=== PATIENT | female | born 2000 | race Caucasian/White ===

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

== ENCOUNTER 2022-08-12 12:59 | Emergency (ER) | payer OTHER ==
--- OUTSIDE RECORDS SUMMARY | 2022-08-12 13:06 | XMS REPORT | Continuity of Care Document ---
:2000 Author Organization [facility] [place] [facility] t Address [address] [place] [address] Care Team Providers Name Role Phone PCP, PATIENT DOES NOT HAVE A Primary Care Physician Unavaila BO Correa Attending Clinician Unavailable RADIOLOGY Attending Clinician Unavailable Radiology Attending Clinician Unavailable Lab, [facility] Pob I Attending Clinician Unavailable EbAylin Connor Attending Clinician AYLIN FIGUEROA Attending Clinician Unavailable SOPHIA HEARD Attending Clinician Unavailable Nurse, [facility] Attending Clinician Unavailable Sophia Heard PA-C Attending Clinician Chemo Yates MD Attending Clinician Radha Monroy Attending Clinician Doctor Unassigned, [facility] Attending Clinician Unavailable CHEMO YATES Attending Clinician Unavailable 2, [facility] Attending Clinician Unavailable Pob, [facility] Main Attending Clinician Unavailable Ultrasound, Ang-[facility] Attending Clinician Unavailable Eladio Neal MD Attending Clinician Provider, [facility] Attending Clinician Unavailable RADHA ANDERSON Attending Clinician Unavailable CHEMO YATES Admitting Clinician Unavailable KAMILLE KERNS Admitting Clinician Unavailable Chemo Yates MD Admitting Clinician Payers Payer Name Policy Type Policy Number Effective Date Expiration Date Zach ESTES POS [id number] 2018 II 00:00:00 [place] [facility] [id number] 2019 HEALTH 00:00:00 [place]ID OF [place] [id number] 2019 00:00:00 Problems Condition Condition Condition Status Onset Resolution Last Treating Co mments Source Name Details Category Date Date Treatment Clinician Date 39 weeks 39 weeks Disease Active 2019-10 Unive rs gestation gestation 0-26 ity of of of 00:00: [place] 00 [facility] Anemia, Anemia, Disease Active 2020 Univers antepartum antepartum 0-26 it y of , third , third 00:00: [place] trimester trimester 00 [facility] Liveborn Liveborn Disease Active 2019-10 Unive rs , of , of 0-26 [place] y of [place] , , 00 [place] d[place] born in born in [facility] hospital by vaginal by vaginal delivery delivery Vacuum-ass Vacuum-ass Disease Active 2019-10 U nivers isted isted 0-26 ity of vaginal vaginal 00:00: [place] delivery delivery 00 [facility] Obesity Obesity Disease Active 2020- Univers (BMI (BMI 8-21 ity of 30-39.9) 30-39.9) 00:00: [address] Supervisio Supervisio Disease Active 2020-0 U nivers n of n of 3-16 ity of high-risk high-risk 00:[place] [facility] with with Branch history of history of in third in third trimester trimester Unsure of Unsure of Disease Active 2020 Uni vers LMP (last LMP (last 2-27 [place] of [place] menstrual 00:[place] period[place] as period) as 00 Me dical reason for reason for Br anch ultrasound ultrasound scan scan Disease Active 2020 Uni vers of unknown of unknown 2-27 it y of anatomic anatomic 00:00: [place] location location 00 [facility] Allergies, Adverse Reactions, Alerts Allergy Allergy Status Severity Reaction(s) Onset Inactive Treating Comm ents Source Name Type Date Date Clinician NO KNOWN Drug Active Univers ALLERGIE Class ity of S [facility] Social History Social Habit Start Date Stop Date Quantity Comments Source ASSERTION 2019-12-06 [facility] 00:00:00 [facility] Exposure to Yes University of SARS-CoV-2 [facility] (event) [place] Alcohol intake 2020-09-15 2020-09-15 Ex-drinker [facility] 00:00:00 00:00:00 (finding) [facility] Tobacco use and 2019-12-23 2019-12-23 Smokeless tobacco Un iversity of exposure 00:00:00 00:00:00 non-user [facility] Sex Assigned At 2000 2000 Universit y of 00:00:00 00:00:00 [facility] Smoking Status Start Date Stop Date Source Never smoked tobacco [facility] Medications Ordered Filled Start Stop Current Ordering Indication Dosage Frequency Signature Comments Components Source Medication Medication Date Date Medication? Clinician (SIG) Name Name medroxyPROG 2020- No [id number] 150mg Univers ESTERone 02-16 ity of (DEPO-PROVE 16:45: 15:20 [place] RA) syringe 00 :00 Medical 150 mg Branch medroxyPROG 2020- No [id number] 150mg 150 mg, Univers ESTERone 02-16 Intramuscu ity of (DEPO-PROVE 16:45: 15:20 lar, ONCE, [place] RA) syringe 00 :00 1 dose, Medic al 150 mg [place] Branch 02/16/21 at 1145, Routine medroxyPROG 2020- No 150mg Univ ers ESTERone 11-23 ity of (DEPO-PROVE 15:45: 14:47 [place] RA) 00 :00 Medical injection Branch 150 mg medroxyPROG 2020- No 150mg 150 mg, U nivers ESTERone 11-23 Intramuscu ity of (DEPO-PROVE 15:45: 14:47 lar, ONCE, [place] RA) 00 :00 1 dose, Medical injection Wed Branch 150 mg 11/23/20 at 0945, Routine medroxyPROG 2019-10- No 150mg 150 mg, U nivers ESTERone -28 Intramuscu ity of (DEPO-PROVE 15:15: 00:38 lar, ONCE, [place] RA) 00 :00 1 dose, Medical injection Tue Branch 150 mg 08/23/20 at 1015, Routine 2019-10 Yes [id number] 1{tbl} Take 1 Univers vitamin 0-27 [id number] tablet by ity o f w/FA tablet 00:00: mouth [place] 00 daily. Medical Branch docusate 2019-10 Yes [id number] 240mg Take 1 Univers calcium 240 0-27 [id number] capsule by ity of mg capsule 00:00: mouth once [place] 00 daily as Medical needed for Branch Constipati on. ferrous 2019-10 Yes [id number] 325mg Take 1 Univers sulfate 325 0-27 [id number] tablet by i ty of mg (65 mg 00:00: mouth 2 [place] iron) 00 (two) Medical tablet times Branch daily. ibuprofen 2019-10 Yes [id number] 600mg Take 1 Univers 600 mg 0-27 [id number] tablet by ity of tablet 00:00: mouth [place] 00 every 6 Medical (six) Branch hours as needed for Pain (scale 1-3) or Pain (scale 4-6) (Pain). Take with food or milk. 2019-10 Yes [id number] 1{tbl} Take 1 Univers vitamin 0-27 [id number] tablet by ity o f w/FA tablet 00:00: mouth [place] 00 daily. Medical Branch docusate 2019-10 Yes [id number] 240mg Take 1 Univers calcium 240 0-27 [id number] capsule by ity of mg capsule 00:00: mouth once [place] 00 daily as Medical needed for Branch Constipati on. ferrous 2019-10 Yes [id number] 325mg Take 1 Univers sulfate 325 0-27 [id number] tablet by i ty of mg (65 mg 00:00: mouth 2 [place] iron) 00 (two) Medical tablet times Branch daily. ibuprofen 2019-10 Yes [id number] 600mg Take 1 Univers 600 mg 0-27 [id number] tablet by ity of tablet 00:00: mouth [place] 00 every 6 Medical (six) Branch hours as needed for Pain (scale 1-3) or Pain (scale 4-6) (Pain). Take with food or milk. 2019-10 Yes [id number] 1{tbl} Take 1 Univers vitamin 0-27 [id number] tablet by ity o f w/FA tablet 00:00: mouth [place] 00 daily. Medical Branch docusate 2019-10 Yes [id number] 240mg Take 1 Univers calcium 240 0-27 [id number] capsule by ity of mg capsule 00:00: mouth once [place] 00 daily as Medical needed for Branch Constipati on. ferrous 2019-10 Yes [id number] 325mg Take 1 Univers sulfate 325 0-27 [id number] tablet by i ty of mg (65 mg 00:00: mouth 2 [place] iron) 00 (two) Medical tablet times Branch daily. ibuprofen 2019-10 Yes [id number] 600mg Take 1 Univers 600 mg 0-27 [id number] tablet by ity of tablet 00:00: mouth [place] 00 every 6 Medical (six) Branch hours as needed for Pain (scale 1-3) or Pain (scale 4-6) (Pain). Take with food or milk. 2019-10 Yes [id number] 1{tbl} Take 1 Univers vitamin 0-27 [id number] tablet by ity o f w/FA tablet 00:00: mouth [place] 00 daily. Medical Branch docusate 2019-10 Yes [id number] 240mg Take 1 Univers calcium 240 0-27 [id number] capsule by ity of mg capsule 00:00: mouth once [place] 00 daily as Medical needed for Branch Constipati on. ferrous 2019-10 Yes [id number] 325mg Take 1 Univers sulfate 325 0-27 [id number] tablet by i ty of mg (65 mg 00:00: mouth 2 [place] iron) 00 (two) Medical tablet times Branch daily. ibuprofen 2019-10 Yes [id number] 600mg Take 1 Univers 600 mg 0-27 [id number] tablet by ity of tablet 00:00: mouth [place] 00 every 6 Medical (six) Branch hours as needed for Pain (scale 1-3) or Pain (scale 4-6) (Pain). Take with food or milk. 2019-10 Yes [id number] 1{tbl} Take 1 Univers vitamin 0-27 [id number] tablet by ity o f w/FA tablet 00:00: mouth [place] 00 daily. Medical Branch docusate 2019-10 Yes [id number] 240mg Take 1 Univers calcium 240 0-27 [id number] capsule by ity of mg capsule 00:00: mouth once [place] 00 daily as Medical needed for Branch Constipati on. ferrous 2019-10 Yes [id number] 325mg Take 1 Univers sulfate 325 0-27 [id number] tablet by i ty of mg (65 mg 00:00: mouth 2 [place] iron) 00 (two) Medical tablet times Branch daily. ibuprofen 2019-10 Yes [id number] 600mg Take 1 Univers 600 mg 0-27 [id number] tablet by ity of tablet 00:00: mouth [place] 00 every 6 Medical (six) Branch hours as needed for Pain (scale 1-3) or Pain (scale 4-6) (Pain). Take with food or milk. 2019-10 Yes [id number] 1{tbl} Take 1 Univers vitamin 0-27 [id number] tablet by ity o f w/FA tablet 00:00: mouth [place] 00 daily. Medical Branch docusate 2019-10 Yes [id number] 240mg Take 1 Univers calcium 240 0-27 [id number] capsule by ity of mg capsule 00:00: mouth once [place] 00 daily as Medical needed for Branch Constipati on. ferrous 2019-10 Yes [id number] 325mg Take 1 Univers sulfate 325 0-27 [id number] tablet by i ty of mg (65 mg 00:00: mouth 2 [place] iron) 00 (two) Medical tablet times Branch daily. ibuprofen 2019-10 Yes [id number] 600mg Take 1 Univers 600 mg 0-27 [id number] tablet by ity of tablet 00:00: mouth [place] 00 every 6 Medical (six) Branch hours as needed for Pain (scale 1-3) or Pain (scale 4-6) (Pain). Take with food or milk. ferrous 2019-10 Yes [id number] 325mg Take 1 Univers sulfate 325 0-27 [id number] tablet by i ty of mg (65 mg 00:00: mouth 2 [place] iron) 00 (two) Medical tablet times Branch daily. ferrous 2019-10 Yes [id number] 325mg Take 1 Univers sulfate 325 0-27 [id number] tablet by i ty of mg (65 mg 00:00: mouth 2 [place] iron) 00 (two) Medical tablet times Branch daily. ferrous 2019-10 Yes [id number] 325mg Take 1 Univers sulfate 325 0-27 [id number] tablet by i ty of mg (65 mg 00:00: mouth 2 [place] iron) 00 (two) Medical tablet times Branch daily. 2019-10- No [id number] 1{tbl} Take 1 Univers vitamin 0-27 04-22 [id number] tablet by ity of w/FA tablet 00:00: 00:00 mouth [place] 00 :00 daily. Medical Branch docusate 2019-10- No [id number] 240mg Take 1 Univers calcium 240 02-16 [id number] capsule by ity of mg capsule 00:00: 00:00 mouth once [place] 00 :00 daily as Medical needed for Branch Constipati on. ibuprofen 2019-10- No [id number] 600mg Take 1 Univers 600 mg 02-16 [id number] tablet by ity o f tablet 00:00: 00:00 mouth [place] 00 :00 every 6 Medical (six) Branch hours as needed for Pain (scale 1-3) or Pain (scale 4-6) (Pain). Take with food or milk. rho(D) 2019-10 Yes 300ug 300 mcg, Univer s immune 0-26 Intramuscu ity of globulin 22:39: lar, ONCE, [place] as (RHOGAM) 37 For 1 Medical syringe 300 dose, Branch mcg Conditiona l, Routine ondansetron 2019-10 Yes 4mg 4 mg, Slow Univers (ZOFRAN 0-26 IV Push, ity of (PF)) 22:39: Q8HPRN, [place] injection 4 19 Starting Medi ron mg Mon Branch 08/22/20 at 1739, Until Discontinu ed, Routine, Nausea and Vomiting (N/V) simethicone 2019-10 Yes 160mg 160 mg, Un maxine (GAS RELIEF 0-26 Oral, ity of (SIMETHICON 22:39: PC+HSPRN, [place] E)) 19 Starting Medical chewable Mon Branch tablet 160 08/22/20 mg at 1739, Until Discontinu ed, Routine, Gas magnesium 2019-10 Yes 30mL 30 mL, Univer s hydroxide 0-26 Oral, ity of (MILK OF 22:39: QDAILYPRN, [place] as MAGNESIA) 19 Starting Medica l 400 mg/5 mL Mon Branch suspension 08/22/20 30 mL at 1739, Until Discontinu ed, Routine, Constipati on HYDROcodone 2019-10 Yes 1{tbl} 1 tablet, Univers -acetaminop 0-26 Oral, ity of hen (NORCO 22:39: Q6HPRN, [place] 5) 5-325 mg 18 Starting Medi ron tablet 1 Mon Branch tablet 08/22/20 at 1739, Until Discontinu ed, Routine, Pain (scale 7-10) ibuprofen 2019-10 Yes 600mg 600 mg, Univ ers (IBU) 0-26 Oral, ity of tablet 600 22:39: Q6HPRN, [place] mg 18 Starting Medical [facility] Branch 08/22/20 at 1739, Until Discontinu ed, Routine, Pain (scale 4-6) acetaminoph 2019-10 Yes 650mg 650 mg, Un maxine en 0-26 Oral, ity of (TYLENOL) 22:39: Q6HPRN, [place] tablet 650 18 Starting Medic al mg [facility] 08/22/20 at 1739, Until Discontinu ed, Routine, Pain (scale 1-3) diphenhydrA 2019-10 Yes 25mg 25 mg, Univ ers MINE 0-26 Oral, ity of (BENADRYL) 22:39: Q6HPRN, [place] tablet 25 18 Starting Medica l mg [facility] 08/22/20 at 1739, Until Discontinu ed, Routine, Sleep, Itching docusate 2019-10 Yes 240mg 240 mg, Unive rs calcium 0-26 Oral, ity of (SURFAK) 22:39: QDAILYPRN, [place] capsule 240 18 Starting Medi ron mg [facility] 08/22/20 at 1739, Until Discontinu ed, Routine, Constipati on benzocaine- 2019-10 Yes Topical, Un maxine menthol 0-26 PRN, ity of (DERMOPLAST 22:39: Starting [place] ) 20-0.5 % 18 Mon Medical topical 08/22/20 Branch spray at 1739, Until Discontinu ed, Routine, Perineum discomfort oxytocin 2019-10 2020- No at 999 Univer s (PITOCIN) 0-26 10-26 mL/hr, IV ity of 40 Units in 22:30: 20:43 Infusion, [place] lactated 00 :00 ONCE, 1 Medical ringers dose, [facility] 1,000 mL IV 08/22/20 infusion at 1730, Routine oxytocin 2019-10 2020- No 10U 10 Units, Uni vers (PITOCIN) 0-26 10-26 Intramuscu ity of injection 20:45: 20:39 lar, ONCE, [place] 10 Units 00 :00 1 dose, Medical [facility] 08/22/20 at 1545, Routine D5W-LR IV 2019-10 2020- No 1000mL at 125 Uni vers infusion 0-26 10-26 mL/hr, IV ity o f 1,000 mL 09:15: 22:39 Infusion, [place] as 00 :38 CONTINUOUS Medical , Starting Branch [facility] 08/22/20 at 0415, Until Sat08/22/20 at 1739, Routine FENTanyl PF 2019-10 2020- No 100ug 100 mcg, Univers (SUBLIMAZE 0-26 10-26 Slow IV ity o f (PF)) 09:07: 22:39 Push, [place] injection 32 :38 Q1HPRN, Medical 100 mcg Starting Branch [facility] 08/22/20 at 0407, Until Sat08/22/20 at 1739, Routine, contractio n pain without an epidural and SVE < 8 cm and Cat I strip LR 1000 mL 2019-10 2020- No 2mU/min at 6-120 Univers + oxytocin 0-26 10-26 mL/hr, IV ity of 20 units IV 09:07: 22:39 Infusion, [place] Solution 32 :38 TITRATE, Medical Starting Branch [facility] 08/22/20 at 0407, Until Sat08/22/20 at 173, FARHEEN lactated 2019-10 2020- No 500mL at 999 Unive rs ringers IV 0-26 10-26 mL/hr, 500 it y of infusion 09:07: 22:39 mL, IV [place] 500 mL 32 :38 Infusion, Medical PRN - SEE Branch INSTRUCTIO NS, Starting Sat08/22/20 at 0407, Until Sat08/22/20 at 1739, Routine famotidine 2020-0 Yes [id number] 20mg Take 1 Univers 20 mg 8-24 tablet by ity of tablet 00:00: mouth 2 [place] (two) Medical times [place] daily. famotidine 2020-0 Yes [id number] 20mg Take 1 Univers 20 mg 8-24 tablet by ity of tablet 00:00: mouth 2 [place] (two) Medical times [place] daily. famotidine 2020-0 Yes [id number] 20mg Take 1 Univers 20 mg 8-24 tablet by ity of tablet 00:00: mouth 2 [place] (two) Medical times [place] daily. famotidine 2020-0 Yes [id number] 20mg Take 1 Univers 20 mg 8-24 tablet by ity of tablet 00:00: mouth 2 [place] (two) Medical times Branch daily. famotidine 2020-0 Yes [id number] 20mg Take 1 Univers 20 mg 8-24 tablet by ity of tablet 00:00: mouth [place] (two) Medical times Branch daily. famotidine 2020-0 Yes [id number] 20mg Take 1 Univers 20 mg 8-24 tablet by ity of tablet 00:00: mouth (two) Medical times Branch daily. famotidine 2020-0 Yes [id number] 20mg Take 1 Univers 20 mg 8-24 tablet by ity of tablet 00:00: mouth [place] (two) Medical times Branch daily. famotidine 2020-0 Yes [id number] 20mg Take 1 Univers 20 mg 8-24 tablet by ity of tablet 00:00: mouth [place] (two) Medical times Branch daily. famotidine 2020-0 Yes [id number] 20mg Take 1 Univers 20 mg 8-24 tablet by ity of tablet 00:00: mouth [place] (two) Medical times Branch daily. famotidine 2020-0 Yes [id number] 20mg Take 1 Univers 20 mg 8-24 tablet by ity of tablet 00:00: mouth [place] (two) Medical times Branch daily. famotidine 2020-0 Yes [id number] 20mg Take 1 Univers 20 mg 8-24 tablet by ity of tablet 00:00: [facility] [place] (two) Medical times Branch daily. famotidine 2020-0 Yes [id number] 20mg Take 1 Univers 20 mg 8-24 tablet by ity of tablet 00:00: [facility] [place] (two) Medical times Branch daily. famotidine 2020-0 Yes [id number] 20mg Take 1 Univers 20 mg 8-24 tablet by ity of tablet 00:00: mouth [place] (two) Medical times Branch daily. famotidine 2020-0 Yes [id number] 20mg Take 1 Univers 20 mg 8-24 tablet by ity of tablet 00:00: mouth [place] (two) Medical times Branch daily. famotidine 2020-0 Yes [id number] 20mg Take 1 Univers 20 mg 8-24 tablet by ity of tablet 00:00: mouth [place] (two) Medical times Branch daily. famotidine 2020-0 Yes [id number] 20mg Take 1 Univers 20 mg 8-24 tablet by ity of tablet 00:00: mouth 2 [place] 00 (two) Medical times Branch daily. famotidine 2020-0 2020- No [id number] 20mg Take 1 Univers 20 mg 8-24 10-27 tablet by ity of tablet 00:00: 00:00 mouth 2 [place] 00 :00 (two) Medical times Branch daily. proMETHazin 2020-0 Yes [id number] 12.5mg Take 1 Univers e 12.5 mg 8-07 tablet by ity o f tablet 00:00: mouth [place] 00 every 4 Medical (four) Branch hours as needed for Nausea and Vomiting (N/V). proMETHazin 2020-0 Yes [id number] 12.5mg Take 1 Univers e 12.5 mg 8-07 tablet by ity o f tablet 00:00: mouth [place] 00 every 4 Medical (four) Branch hours as needed for Nausea and Vomiting (N/V). proMETHazin 2020-0 Yes [id number] 12.5mg Take 1 Univers e 12.5 mg 8-07 tablet by ity o f tablet 00:00: mouth [place] 00 every 4 Medical (four) Branch hours as needed for Nausea and Vomiting (N/V). proMETHazin 2020-0 Yes [id number] 12.5mg Take 1 Univers e 12.5 mg 8-07 tablet by ity o f tablet 00:00: mouth [place] 00 every 4 Medical (four) Branch hours as needed for Nausea and Vomiting (N/V). proMETHazin 2020-0 Yes [id number] 12.5mg Take 1 Univers e 12.5 mg 8-07 tablet by ity o f tablet 00:00: mouth [place] 00 every 4 Medical (four) Branch hours as needed for Nausea and Vomiting (N/V). proMETHazin 2020-0 Yes [id number] 12.5mg Take 1 Univers e 12.5 mg 8-07 tablet by ity o f tablet 00:00: mouth [place] 00 every 4 Medical (four) Branch hours as needed for Nausea and Vomiting (N/V). proMETHazin 2020-0 Yes [id number] 12.5mg Take 1 Univers e 12.5 mg 8-07 tablet by ity o f tablet 00:00: mouth [place] 00 every 4 Medical (four) Branch hours as needed for Nausea and Vomiting (N/V). proMETHazin 2020-0 Yes [id number] 12.5mg Take 1 Univers e 12.5 mg 8-07 tablet by ity o f tablet 00:00: mouth [place] 00 every 4 Medical (four) Branch hours as needed for Nausea and Vomiting (N/V). proMETHazin 2020-0 Yes [id number] 12.5mg Take 1 Univers e 12.5 mg 8-07 tablet by ity o f tablet 00:00: mouth [place] 00 every 4 Medical (four) Branch hours as needed for Nausea and Vomiting (N/V). proMETHazin 2020-0 Yes [id number] 12.5mg Take 1 Univers e 12.5 mg 8-07 tablet by ity o f tablet 00:00: mouth [place] 00 every 4 Medical (four) Branch hours as needed for Nausea and Vomiting (N/V). proMETHazin 2020-0 Yes [id number] 12.5mg Take 1 Univers e 12.5 mg 8-07 tablet by ity o f tablet 00:00: mouth [place] 00 every 4 Medical (four) Branch hours as needed for Nausea and Vomiting (N/V). proMETHazin 2020-0 Yes [id number] 12.5mg Take 1 Univers e 12.5 mg 8-07 tablet by ity o f tablet 00:00: mouth [place] 00 every 4 Medical (four) Branch hours as needed for Nausea and Vomiting (N/V). proMETHazin 2020-0 Yes [id number] 12.5mg Take 1 Univers e 12.5 mg 8-07 tablet by ity o f tablet 00:00: mouth [place] 00 every 4 Medical (four) Branch hours as needed for Nausea and Vomiting (N/V). proMETHazin 2020-0 Yes [id number] 12.5mg Take 1 Univers e 12.5 mg 8-07 tablet by ity o f tablet 00:00: mouth [place] 00 every 4 Medical (four) Branch hours as needed for Nausea and Vomiting (N/V). proMETHazin 2020-0 Yes [id number] 12.5mg Take 1 Univers e 12.5 mg 8-07 tablet by ity o f tablet 00:00: mouth [place] 00 every 4 Medical (four) Branch hours as needed for Nausea and Vomiting (N/V). proMETHazin 2020-0 Yes [id number] 12.5mg Take 1 Univers e 12.5 mg 8-07 tablet by ity o f tablet 00:00: mouth [place] 00 every 4 Medical (four) Branch hours as needed for Nausea and Vomiting (N/V). proMETHazin 2020-0 Yes [id number] 12.5mg Take 1 Univers e 12.5 mg 8-07 tablet by ity o f tablet 00:00: mouth [place] 00 every 4 Medical (four) Branch hours as needed for Nausea and Vomiting (N/V). proMETHazin 2020-0 Yes [id number] 12.5mg Take 1 Univers e 12.5 mg 8-07 tablet by ity o f tablet 00:00: mouth [place] 00 every 4 Medical (four) Branch hours as needed for Nausea and Vomiting (N/V). proMETHazin 2020-0 Yes [id number] 12.5mg Take 1 Univers e 12.5 mg 8-07 tablet by ity o f tablet 00:00: mouth [place] 00 every 4 Medical (four) Branch hours as needed for Nausea and Vomiting (N/V). proMETHazin 2020-0 2020- No [id number] 12.5mg Take 1 Univers e 12.5 mg 8-07 10-27 tablet by ity of tablet 00:00: 00:00 mouth [place] 00 :00 every 4 Medical (four) Branch hours as needed for Nausea and Vomiting (N/V). PNV 2020-0 Yes [id number] Take 1 Univer s 102-iron-fo 2-27 TAB-CAP/M2 it y of late 00:00: by mouth [place] 1-dss-dha 00 daily. Medical (VITAFOL Branch FE+, WITH DOCUSATE,) 90 mg iron-1 mg -50 mg-200 mg Cap PNV 2020-0 Yes [id number] Take 1 Univer s 102-iron-fo 2-27 TAB-CAP/M2 it y of late 00:00: by mouth [place] 1-dss-dha 00 daily. Medical (VITAFOL Branch FE+, WITH DOCUSATE,) 90 mg iron-1 mg -50 mg-200 mg Cap PNV 2020-0 Yes [id number] Take 1 Univer s 102-iron-fo 2-27 TAB-CAP/M2 it y of late 00:00: by mouth [place] 1-dss-dha 00 daily. Medical (VITAFOL Branch FE+, WITH DOCUSATE,) 90 mg iron-1 mg -50 mg-200 mg Cap PNV 2020-0 Yes [id number] Take 1 Univer s 102-iron-fo 2-27 TAB-CAP/M2 it y of late 00:00: by mouth [address] 00 daily. Medical (VITAFOL Branch FE+, WITH DOCUSATE,) 90 mg iron-1 mg -50 mg-200 mg Cap PNV 2020-0 Yes [id number] Take 1 Univer s 102-iron-fo 2-27 TAB-CAP/M2 it y of late 00:00: by mouth [address] 00 daily. Medical (VITAFOL Branch FE+, WITH DOCUSATE,) 90 mg iron-1 mg -50 mg-200 mg Cap PNV 2020-0 Yes [id number] Take 1 Univer s 102-iron-fo 2-27 TAB-CAP/M2 it y of late 00:00: by mouth [address] 00 daily. Medical (VITAFOL Branch FE+, WITH DOCUSATE,) 90 mg iron-1 mg -50 mg-200 mg Cap PNV 2020-0 Yes [id number] Take 1 Univer s 102-iron-fo 2-27 TAB-CAP/M2 it y of late 00:00: by mouth [address] daily. Medical (VITAFOL Branch FE+, WITH DOCUSATE,) 90 mg iron-1 mg -50 mg-200 mg Cap PNV 2020-0 Yes [id number] Take 1 Univer s 102-iron-fo 2-27 TAB-CAP/M2 it y of late 00:00: by mouth [address] 00 daily. Medical (VITAFOL Branch FE+, WITH DOCUSATE,) 90 mg iron-1 mg -50 mg-200 mg Cap PNV 2020-0 Yes [id number] Take 1 Univer s 102-iron-fo 2-27 TAB-CAP/M2 it y of late 00:00: by mouth [address] 00 daily. Medical (VITAFOL Branch FE+, WITH DOCUSATE,) 90 mg iron-1 mg -50 mg-200 mg Cap PNV 2020-0 Yes [id number] Take 1 Univer s 102-iron-fo 2-27 TAB-CAP/M2 it y of late 00:00: by mouth [address] 00 daily. Medical (VITAFOL Branch FE+, WITH DOCUSATE,) 90 mg iron-1 mg -50 mg-200 mg Cap PNV 2020-0 Yes [id number] Take 1 Univer s 102-iron-fo 2-27 TAB-CAP/M2 it y of late 00:00: by mouth [address] 00 daily. Medical (VITAFOL Branch FE+, WITH DOCUSATE,) 90 mg iron-1 mg -50 mg-200 mg Cap PNV 2020-0 Yes [id number] Take 1 Univer s 102-iron-fo 2-27 TAB-CAP/M2 it y of late 00:00: by mouth [address] daily. Medical (VITAFOL Branch FE+, WITH DOCUSATE,) 90 mg iron-1 mg -50 mg-200 mg Cap PNV 2020-0 Yes [id number] Take 1 Univer s 102-iron-fo 2-27 TAB-CAP/M2 it y of late 00:00: by mouth [address] daily. Medical (VITAFOL Branch FE+, WITH DOCUSATE,) 90 mg iron-1 mg -50 mg-200 mg Cap PNV 2020-0 Yes [id number] Take 1 Univer s 102-iron-fo 2-27 TAB-CAP/M2 it y of late 00:00: by mouth [address] daily. Medical (VITAFOL Branch FE+, WITH DOCUSATE,) 90 mg iron-1 mg -50 mg-200 mg Cap PNV 2020-0 Yes [id number] Take 1 Univer s 102-iron-fo 2-27 TAB-CAP/M2 it y of late 00:00: by mouth [address] daily. Medical (VITAFOL Branch FE+, WITH DOCUSATE,) 90 mg iron-1 mg -50 mg-200 mg Cap PNV 2020-0 Yes [id number] Take 1 Univer s 102-iron-fo 2-27 TAB-CAP/M2 it y of late 00:00: by mouth [address] 00 daily. Medical (VITAFOL Branch FE+, WITH DOCUSATE,) 90 mg iron-1 mg -50 mg-200 mg Cap PNV 2020-0 Yes [id number] Take 1 Univer s 102-iron-fo 2-27 TAB-CAP/M2 it y of late 00:00: by mouth [place] [address]-dss-[facility] 00 daily. Medical (VITAFOL Branch FE+, WITH DOCUSATE,) 90 mg iron-1 mg -50 mg-200 mg Cap PNV 2020-0 Yes [id number] Take 1 Univer s 102-iron-fo 2-27 TAB-CAP/M2 it y of late 00:00: by mouth [place] [address]-dss-dha 00 daily. Medical (VITAFOL Branch FE+, WITH DOCUSATE,) 90 mg iron-1 mg -50 mg-200 mg Cap PNV 2020-0 Yes [id number] Take 1 Univer s 102-iron-fo 2-27 TAB-CAP/M2 it y of late 00:00: by mouth [place] [address]-dss-dha 00 daily. Medical (VITAFOL Branch FE+, WITH DOCUSATE,) 90 mg iron-1 mg -50 mg-200 mg Cap PNV 2020-0 Yes [id number] Take 1 Univer s 102-iron-fo 2-27 TAB-CAP/M2 it y of late 00:00: by mouth [place] [address]-dss-[facility] 00 daily. Medical (VITAFOL Branch FE+, WITH DOCUSATE,) 90 mg iron-1 mg -50 mg-200 mg Cap PNV 2020-0 Yes [id number] Take 1 Univer s 102-iron-fo 2-27 TAB-CAP/M2 it y of late 00:00: by mouth [place] [address]-dss-dha 00 daily. Medical (VITAFOL Branch FE+, WITH DOCUSATE,) 90 mg iron-1 mg -50 mg-200 mg Cap PNV 2020-0 Yes [id number] Take 1 Univer s 102-iron-fo 2-27 TAB-CAP/M2 it y of late 00:00: by mouth [place] [address]-dss-[facility] 00 daily. Medical (VITAFOL Branch FE+, WITH DOCUSATE,) 90 mg iron-1 mg -50 mg-200 mg Cap PNV 2020-0 Yes [id number] Take 1 Univer s 102-iron-fo 2-27 TAB-CAP/M2 it y of late 00:00: by mouth [place] [address]-dss-dha 00 daily. Medical (VITAFOL Branch FE+, WITH DOCUSATE,) 90 mg iron-1 mg -50 mg-200 mg Cap PNV 2020-0 Yes [id number] Take 1 Univer s 102-iron-fo 2-27 TAB-CAP/M2 it y of late 00:00: by mouth [address] 00 daily. Medical (VITAFOL Branch FE+, WITH DOCUSATE,) 90 mg iron-1 mg -50 mg-200 mg Cap PNV 2020-0 Yes [id number] Take 1 Univer s 102-iron-fo 2-27 TAB-CAP/M2 it y of late 00:00: by mouth [address] 00 daily. Medical (VITAFOL Branch FE+, WITH DOCUSATE,) 90 mg iron-1 mg -50 mg-200 mg Cap PNV 2020-0 Yes [id number] Take 1 Univer s 102-iron-fo 2-27 TAB-CAP/M2 it y of late 00:00: by mouth [address] 00 daily. Medical (VITAFOL Branch FE+, WITH DOCUSATE,) 90 mg iron-1 mg -50 mg-200 mg Cap PNV 2020-0 Yes [id number] Take 1 Univer s 102-iron-fo 2-27 TAB-CAP/M2 it y of late 00:00: by mouth [address] daily. Medical (VITAFOL Branch FE+, WITH DOCUSATE,) 90 mg iron-1 mg -50 mg-200 mg Cap PNV 2020-0 Yes [id number] Take 1 Univer s 102-iron-fo 2-27 TAB-CAP/M2 it y of late 00:00: by mouth [address] 00 daily. Medical (VITAFOL Branch FE+, WITH DOCUSATE,) 90 mg iron-1 mg -50 mg-200 mg Cap PNV 2020-0 Yes [id number] Take 1 Univer s 102-iron-fo 2-27 TAB-CAP/M2 it y of late 00:00: by mouth [address] 00 daily. Medical (VITAFOL Branch FE+, WITH DOCUSATE,) 90 mg iron-1 mg -50 mg-200 mg Cap PNV 2020-0 Yes [id number] Take 1 Univer s 102-iron-fo 2-27 TAB-CAP/M2 it y of late 00:00: by mouth [address] 00 daily. Medical (VITAFOL Branch FE+, WITH DOCUSATE,) 90 mg iron-1 mg -50 mg-200 mg Cap PNV 2020-0 Yes [id number] Take 1 Univer s 102-iron-fo 2-27 TAB-CAP/M2 it y of late 00:00: by mouth [address] 00 daily. Medical (VITAFOL Branch FE+, WITH DOCUSATE,) 90 mg iron-1 mg -50 mg-200 mg Cap PNV 2020-0 Yes [id number] Take 1 Univer s 102-iron-fo 2-27 TAB-CAP/M2 it y of late 00:00: by mouth [address] daily. Medical (VITAFOL Branch FE+, WITH DOCUSATE,) 90 mg iron-1 mg -50 mg-200 mg Cap PNV 2020-0 Yes [id number] Take 1 Univer s 102-iron-fo 2-27 TAB-CAP/M2 it y of late 00:00: by mouth [address] daily. Medical (VITAFOL Branch FE+, WITH DOCUSATE,) 90 mg iron-1 mg -50 mg-200 mg Cap PNV 2020-0 Yes [id number] Take 1 Univer s 102-iron-fo 2-27 TAB-CAP/M2 it y of late 00:00: by mouth [address] daily. Medical (VITAFOL Branch FE+, WITH DOCUSATE,) 90 mg iron-1 mg -50 mg-200 mg Cap PNV 2020-0 Yes [id number] Take 1 Univer s 102-iron-fo 2-27 TAB-CAP/M2 it y of late 00:00: by mouth [address] daily. Medical (VITAFOL Branch FE+, WITH DOCUSATE,) 90 mg iron-1 mg -50 mg-200 mg Cap PNV 2020-0 Yes [id number] Take 1 Univer s 102-iron-fo 2-27 TAB-CAP/M2 it y of late 00:00: by mouth [address] 00 daily. Medical (VITAFOL Branch FE+, WITH DOCUSATE,) 90 mg iron-1 mg -50 mg-200 mg Cap PNV 2020-0 Yes [id number] Take 1 Univer s 102-iron-fo 2-27 TAB-CAP/M2 it y of late 00:00: by mouth [place] 1-dss-dha 00 daily. Medical (VITAFOL Branch FE+, WITH DOCUSATE,) 90 mg iron-1 mg -50 mg-200 mg Cap PNV 2020-0 Yes [id number] Take 1 Univer s 102-iron-fo 2-27 TAB-CAP/M2 it y of late 00:00: by mouth [place] 1-dss-dha 00 daily. Medical (VITAFOL Branch FE+, WITH DOCUSATE,) 90 mg iron-1 mg -50 mg-200 mg Cap PNV 2020-0 Yes [id number] Take 1 Univer s 102-iron-fo 2-27 TAB-CAP/M2 it y of late 00:00: by mouth [place] 1-dss-dha 00 daily. Medical (VITAFOL Branch FE+, WITH DOCUSATE,) 90 mg iron-1 mg -50 mg-200 mg Cap PNV 2020-0 Yes [id number] Take 1 Univer s 102-iron-fo 2-27 TAB-CAP/M2 it y of late 00:00: by mouth [place] 1-dss-dha 00 daily. Medical (VITAFOL Branch FE+, WITH DOCUSATE,) 90 mg iron-1 mg -50 mg-200 mg Cap PNV 2020-0 Yes [id number] Take 1 Univer s 102-iron-fo 2-27 TAB-CAP/M2 it y of late 00:00: by mouth [place] 1-dss-dha 00 daily. Medical (VITAFOL Branch FE+, WITH DOCUSATE,) 90 mg iron-1 mg -50 mg-200 mg Cap PNV 2020-0 Yes [id number] Take 1 Univer s 102-iron-fo 2-27 TAB-CAP/M2 it y of late 00:00: by mouth [place] [address]-dss-dha 00 daily. Medical (VITAFOL Branch FE+, WITH DOCUSATE,) 90 mg iron-1 mg -50 mg-200 mg Cap PNV 2020-0 2020- No [id number] Take 1 Unive rs 102-iron-fo 2-27 10-27 TAB-CAP/M2 i ty of late 00:00: 00:00 by mouth [place] 1-dss-dha 00 :00 daily. Medical (VITAFOL Branch FE+, WITH DOCUSATE,) 90 mg iron-1 mg -50 mg-200 mg Cap amoxicillin 2016-10 Yes 500mg Take 1 Uni vers -pot 2-10 tablet by ity of clavulanate 00:00: mouth [place] 500 mg 00 every 8 Medical 500-125 mg (eight) Branch tablet hours. acetaminoph 2016-10 Yes 1{tbl} Take 1 Un maxine en-codeine 2-10 tablet by ity of (TYLENOL-CO 00:00: mouth [place] DEINE #3) 00 every 4 Medical 300-30 mg (four) Branch tablet hours as needed for Pain (scale 7-10). amoxicillin 2016-10- No 500mg Take 1 Un maxine -pot 2-10 02-27 tablet by ity of clavul[place]ate 00:00[place] 500 [place] 00 :00 every 8 Medical 500-125 mg (eight) Branch tablet hours. acetaminoph 2016-10 2020- No 1{tbl} Take 1 U nivers en-codeine 2-10 02-27 tablet by ity of (TYLENOL-CO 00:00[place] 00:[place] DE[place] #3[place] 00 :00 every 4 Medical 300-30 mg (four) Branch tablet hours as needed for Pain (scale 7-10). Immunizations Ordered Filled Immunization Date Status Comments [facility] e Immunization Name Name Influenza Virus 2020-07-28 Completed Universit y of Vacc[place] .5 mL 00:00:00 [place] [facility] IM 6+ MO Branch Influenza Virus 2020-07-28 Completed Universit y of Vacc[facility] [place] .5 mL 00:00:00 [facility] IM 6+ MO Branch Influenza Virus 2020-07-28 Completed Universit y of Vaccine [place] .5 mL 00:00:00 [place] [facility] IM 6+ MO Branch Influenza Virus 2020-07-28 Completed Universit y of [facility] [place] .5 mL 00:00:00 [place] [facility] IM 6+ MO Branch Influenza Virus 2020-07-28 Completed Universit y of [facility] [place] .5 mL 00:00:00 [place] [facility] IM 6+ MO Branch Influenza Virus 2020-07-28 Completed Universit y of [facility] .5 mL 00:00:00 [place] [facility] IM 6+ MO Branch Influenza Virus 2020-07-28 Completed Universit y of [facility] [place] .5 mL 00:00:00 [place] [facility] 6+ MO Branch Influenza Virus 2020-07-28 Completed Universit y of [facility] [place] .5 mL 00:00:00 [place] [facility] IM 6+ MO Branch Influenza Virus 2020-07-28 Completed Universit y of Vaccine [place] .5 mL 00:00:00 [place] [facility] IM 6+ MO Branch Influenza Virus 2020-07-28 Completed Universit y of [facility] [place] .5 mL 00:00:00 [place] [facility] IM 6+ MO Branch Influenza Virus 2020-07-28 Completed Universit y of Vaccine [place] .5 mL 00:00:00 [place] [facility] IM 6+ MO Branch Influenza Virus 2020-07-28 Completed Universit y of [facility] .5 mL 00:00:00 [place] [facility] IM 6+ MO Branch Influenza Virus 2020-07-28 Completed Universit y of [facility] [place] .5 mL 00:00:00 [place] [facility] IM 6+ MO Branch Influenza Virus 2020-07-28 Completed Universit y of [facility] [place] .5 mL 00:00:00 [place] [facility] IM 6+ MO Branch Influenza Virus 2020-07-28 Completed Universit y of [facility] .5 mL 00:00:00 [place] [facility] IM 6+ MO Branch Influenza Virus 2020-07-28 Completed Universit y of [facility] .5 mL 00:00:00 [place] [facility] IM 6+ MO Branch Influenza Virus 2020-07-28 Completed Universit y of [facility]ine [place] .5 mL 00:00:00 [place] [facility] 6+ MO Branch TDAP 2020-06-03 Completed University of 00:00:00 [place] [facility] [place] TDAP 2020-06-03 Completed University of 00:00:00 [place] [facility] [place] TDAP 2020-06-03 Completed University of 00:00:00 [place] [facility] [place] TDAP 2020-06-03 Completed University of 00:00:00 [place] [facility] [place] TDAP 2020-06-03 Completed University of 00:00:00 [place] [facility] [place] TDAP 2020-06-03 Completed University of 00:00:00 [place] [facility] [place] TDAP 2020-06-03 Completed University of 00:00:00 [place] [facility] [place] TDAP 2020-06-03 Completed University of 00:00:00 [place] [facility] [place] TDAP 2020-06-03 Completed University of 00:00:00 [place] [facility] [place] TDAP 2020-06-03 Completed University of 00:00:00 [facility] TDAP 2020-06-03 Completed University of 00:00:00 [facility] TDAP 2020-06-03 Completed University of 00:00:00 [facility] TDAP 2020-06-03 Completed University of 00:00:00 [facility] TDAP 2020-06-03 Completed University of 00:00:00 [place] [facility] TDAP 2020-06-03 Completed University of 00:00:00 [place] [facility] TDAP 2020-06-03 Completed University of 00:00:00 [place] [facility] TDAP 2020-06-03 Completed University of 00:00:00 [facility] Branch TDAP 2020-06-03 Completed University of 00:00:00 [facility] Branch TDAP 2020-06-03 Completed University of 00:00:00 [facility] Branch TDAP 2020-06-03 Completed University of 00:00:00 [facility] Branch TDAP 2020-06-03 Completed University of 00:00:00 [facility] Branch TDAP 2020-06-03 Completed University of 00:00:00 [facility] Branch TDAP 2020-06-03 Completed University of 00:00:00 [facility] TDAP 2020-06-03 Completed University of 00:00:00 [facility] TDAP 2020-06-03 Completed University of 00:00:00 [facility] TDAP 2020-06-03 Completed University of 00:00:00 [facility] TDAP 2020-06-03 Completed University of 00:00:00 [facility] TDAP 2020-06-03 Completed University of 00:00:00 [facility] HEPATITIS A 2017-06-10 Completed University of 00:00:00 [facility] HEPATITIS A 2017-06-10 Completed University of 00:00:00 [facility] HEPATITIS A 2017-06-10 Completed University of 00:00:00 [facility] HEPATITIS A 2017-06-10 Completed University of 00:00:00 [facility] HEPATITIS A 2017-06-10 Completed University of 00:00:00 [facility] HEPATITIS A 2017-06-10 Completed University of 00:00:00 [facility] HEPATITIS A 2017-06-10 Completed University of 00:00:00 [facility] HEPATITIS A 2017-06-10 Completed University of 00:00:00 [facility] HEPATITIS A 2017-06-10 Completed University of 00:00:00 [facility] Vital Signs Vital Name Observation Time Observation Value Comments Source Systolic blood 2021-02-16 15:27:00 112 mm[Hg] Univer sity of pressure [facility] Diastolic blood 2021-02-16 15:27:00 76 mm[Hg] Unive rsity of pressure [place] [facility] Heart rate 2021-02-16 15:27:00 77 /min Universi ty of [place] [facility] Body temperature 2021-02-16 15:27:00 37 Lucina Univ ersity of [place] [facility] Respiratory rate 2021-02-16 15:27:00 18 /min Univ ersity of [place] [facility] Body height 2021-02-16 15:27:00 160 cm Universi ty of [place] [facility] Body weight 2021-02-16 15:27:00 74.753 kg Universi ty of [place] [facility] BMI 2021-02-16 15:27:00 29.19 kg/m2 Universi ty of [place] [facility] Systolic blood 2020-11-23 14:40:00 120 mm[Hg] Univer sity of pressure [place] [facility] Diastolic blood 2020-11-23 14:40:00 84 mm[Hg] Unive rsity of pressure [place] [facility] Heart rate 2020-11-23 14:40:00 78 /min Universi ty of [place] [facility] Body temperature 2020-11-23 14:40:00 36.78 Lucina Univ ersity of [place] [facility] Respiratory rate 2020-11-23 14:40:00 18 /min Univ ersity of [place] [facility] Body height 2020-11-23 14:40:00 160 cm Universi ty of [place] [facility] Body weight 2020-11-23 14:40:00 71.668 kg Universi ty of [place] [facility] BMI 2020-11-23 14:40:00 27.99 kg/m2 [facility]i ty [facility] [place] [facility] Systolic blood 2020-09-15 17:58:00 120 mm[Hg] Univer sity of pressure [place] [facility] Diastolic blood 2020-09-15 17:58:00 72 mm[Hg] Unive rsity of pressure [place] [facility] Heart rate 2020-09-15 17:58:00 71 /min Universi ty of [place] [facility] Body temperature 2020-09-15 17:58:00 36.94 Lucina Univ ersity of [place] [facility] Respiratory rate 2020-09-15 17:58:00 18 /min Univ ersity of [place] [facility] Body height 2020-09-15 17:58:00 160 cm [facility]i [facility] [place] [facility] Body weight 2020-09-15 17:58:00 70.761 kg [facility]i [facility] [place] [facility] BMI 2020-09-15 17:58:00 27.63 kg/m2 Universi ty of [place] [facility] Systolic blood 2020-08-23 17:45:00 132 mm[Hg] Univer sity of pressure [facility] Branch Diastolic blood 2020-08-23 17:45:00 81 mm[Hg] Unive rsity of pressure [facility] Heart rate 2020-08-23 17:45:00 75 /min Universi ty of [facility] Body temperature 2020-08-23 17:45:00 36.94 Lucina Univ ersity of [facility] Respiratory rate 2020-08-23 17:45:00 18 /min Univ ersity of [facility] Branch Oxygen saturation in 2020-08-23 17:45:00 100 /min University Arterial blood by [facility] Pulse oximetry Branch Body height 2020-08-22 10:03:00 160 cm Universi ty of [facility] Body weight 2020-08-22 10:03:00 80.468 kg Universi ty of [facility] BMI 2020-08-22 10:03:00 31.42 kg/m2 Universi ty of [place] [facility] Systolic blood 2020-08-18 18:12:00 129 mm[Hg] Univer sity of pressure [facility] Diastolic blood 2020-08-18 18:12:00 84 mm[Hg] Unive rsity of pressure [facility] Branch Heart rate 2020-08-18 18:12:00 75 /min Universi ty of [facility] Body temperature 2020-08-18 18:12:00 36.78 Lucina Univ ersity of [facility] Respiratory rate 2020-08-18 18:12:00 18 /min Univ ersity of [facility] Branch Body height 2020-08-18 18:12:00 160 cm Universi ty of [place] [facility] Body weight 2020-08-18 18:12:00 80.287 kg [facility]i ty [facility] [place] [facility] BMI 2020-08-18 18:12:00 31.35 kg/m2 Universi ty of [facility] Systolic blood 2020-08-10 14:17:00 124 mm[Hg] Univer sity of pressure [facility] Branch Diastolic blood 2020-08-10 14:17:00 86 mm[Hg] Unive rsity of pressure [facility] Heart rate 2020-08-10 14:17:00 89 /min Universi ty of [place] [facility] Body temperature 2020-08-10 14:17:00 36.72 Lucina Univ ersity of [place] [facility] Respiratory rate 2020-08-10 14:17:00 18 /min Univ ersity of [place] [facility] Body height 2020-08-10 14:17:00 160 cm [facility]i [facility] [place] [facility] Body weight 2020-08-10 14:17:00 79.833 kg [facility] [place] [facility] BMI 2020-08-10 14:17:00 31.18 kg/m2 [facility] [place] [facility] Systolic blood 2020-07-28 16:25:00 126 mm[Hg] Univer sity of pressure [place] [facility] Diastolic blood 2020-07-28 16:25:00 85 mm[Hg] Unive rsity of pressure [place] [facility] Heart rate 2020-07-28 16:25:00 100 /min Universi ty of [place] [facility] Body temperature 2020-07-28 16:25:00 36.67 Lucina Univ ersity of [facility] Respiratory rate 2020-07-28 16:25:00 18 /min Univ ersity of [place] [facility] Body height 2020-07-28 16:25:00 160 cm [facility]i [facility] [place] [facility] Body weight 2020-07-28 16:25:00 80.559 kg [facility] [place] [facility] BMI 2020-07-28 16:25:00 31.46 kg/m2 [facility] [place] [facility] Systolic blood 2020-07-01 14:07:00 126 mm[Hg] Univer sity of pressure [place] [facility] Diastolic blood 2020-07-01 14:07:00 83 mm[Hg] Unive rsity of pressure [place] [facility] Heart rate 2020-07-01 14:07:00 96 /min [facility]i ty [facility] [place] [facility] Body temperature 2020-07-01 14:07:00 36.78 Lucina Univ [facility] of [place] [facility] Respiratory rate 2020-07-01 14:07:00 18 /min Univ ersity of [place] [facility] Body height 2020-07-01 14:07:00 160 cm [facility] [place] [facility] Body weight 2020-07-01 14:07:00 78.926 kg [facility]i ty [facility] [place] [facility] BMI 2020-07-01 14:07:00 30.82 kg/m2 [facility] [place] [facility] Systolic blood 2020-06-17 16:49:00 126 mm[Hg] Univer sity of pressure [place] [facility] Diastolic blood 2020-06-17 16:49:00 75 mm[Hg] Unive rsity of pressure [place] [facility] Heart rate 2020-06-17 16:49:00 92 /min Universi ty [facility] [place] [facility] Body temperature 2020-06-17 16:49:00 36.78 Lucina Univ ers[facility] of [place] [facility] Respiratory rate 2020-06-17 16:49:00 18 /min Univ ersity of [place] [facility] Body height 2020-06-17 16:49:00 160 cm [facility] [place] [facility] Body weight 2020-06-17 16:49:00 78.926 kg Universi ty [facility] [place] [facility] BMI 2020-06-17 16:49:00 30.82 kg/m2 Universi ty of [facility] Systolic blood 2020-06-03 16:28:00 136 mm[Hg] Univer sity of pressure [place] [facility] Diastolic blood 2020-06-03 16:28:00 82 mm[Hg] Unive rsity of pressure [place] [facility] Heart rate 2020-06-03 16:28:00 93 /min Universi ty [facility] [place] [facility] Body temperature 2020-06-03 16:28:00 36.78 Luc[place] Univ ers[facility] of [place] [facility] Respiratory rate 2020-06-03 16:28:00 18 /min Univ ersity of [place] [facility] Body height 2020-06-03 16:28:00 160 cm [facility] [place] [facility] Body weight 2020-06-03 16:28:00 76.658 kg [facility] [place] [facility] BMI 2020-06-03 16:28:00 29.94 kg/m2 [facility] [place] [facility] Systolic blood 2020-05-06 18:31:00 129 mm[Hg] Univer sity of pressure [place] [facility] Diastolic blood 2020-05-06 18:31:00 76 mm[Hg] Unive rsity of pressure [place] [facility] Heart rate 2020-05-06 18:31:00 96 /min [facility]i ty [facility] [place] [facility] Body temperature 2020-05-06 18:31:00 36.83 Lucina Univ [facility] [place] [facility] Respiratory rate 2020-05-06 18:31:00 18 /min Univ ersity of [place] [facility] Body height 2020-05-06 18:31:00 160 cm Universi ty of [place] [facility] [place] Body weight 2020-05-06 18:31:00 74.844 kg [facility]i ty [facility] [place] [facility] BMI 2020-05-06 18:31:00 29.23 kg/m2 Universi ty of [facility] Branch Systolic blood 2020-04-07 13:43:00 113 mm[Hg] Univer sity of pressure [facility] Diastolic blood 2020-04-07 13:43:00 76 mm[Hg] Unive rsity of pressure [facility] Heart rate 2020-04-07 13:43:00 76 /min Universi ty of [facility] Body temperature 2020-04-07 13:43:00 36.78 Lucina Univ ersity of [facility] Respiratory rate 2020-04-07 13:43:00 18 /min Univ ersity of [facility] Body height 2020-04-07 13:43:00 160 cm Universi ty of [facility] Body weight 2020-04-07 13:43:00 71.396 kg Universi ty of [facility] BMI 2020-04-07 13:43:00 27.88 kg/m2 Universi ty of [facility] Systolic blood 2020-04-02 18:02:00 115 mm[Hg] Univer sity of pressure [facility] Diastolic blood 2020-04-02 18:02:00 77 mm[Hg] Unive rsity of pressure [facility] Heart rate 2020-04-02 18:02:00 91 /min Universi ty of [facility] Body temperature 2020-04-02 18:02:00 36.94 Lucina Univ ersity of [facility] Respiratory rate 2020-04-02 18:02:00 18 /min Univ ersity of [facility] Body height 2020-04-02 18:02:00 160 cm Universi ty of [facility] Body weight 2020-04-02 18:02:00 70.761 kg [facility]i ty [facility] [place] [facility] BMI 2020-04-02 18:02:00 27.63 kg/m2 Universi ty of [facility] Oxygen saturation in 2020-04-02 18:02:00 98 /min University of Arterial blood by [facility] Pulse oximetry Branch Systolic blood 2020-01-11 21:25:00 125 mm[Hg] Univer sity of pressure [facility] Diastolic blood 2020-01-11 21:25:00 79 mm[Hg] Unive rsity of pressure [place] [facility] Heart rate 2020-01-11 21:25:00 113 /min [facility]i ty [facility] [place] [facility] Body temperature 2020-01-11 21:25:00 36.94 Lucina Univ [facility] [place] [facility] Respiratory rate 2020-01-11 21:25:00 18 /min Univ ersity of [place] [facility] Body height 2020-01-11 21:25:00 160 cm [facility] [place] [facility] Body weight 2020-01-11 21:25:00 69.854 kg [facility] [place] [facility] BMI 2020-01-11 21:25:00 27.28 kg/m2 [facility] [place] [facility] Systolic blood 2019-12-23 15:53:00 131 mm[Hg] Univer sity of pressure [place] [facility] Diastolic blood 2019-12-23 15:53:00 80 mm[Hg] Unive rsity of [facility] Heart rate 2019-12-23 15:53:00 84 /min Universi ty of [place] [facility] Body temperature 2019-12-23 15:53:00 36.72 Lucina Univ [facility] [place] [facility] Respiratory rate 2019-12-23 15:53:00 18 /min Univ ersity of [place] [facility] Body height 2019-12-23 15:53:00 157.5 cm [facility] [place] [facility] Body weight 2019-12-23 15:53:00 68.947 kg [facility] [place] [facility] BMI 2019-12-23 15:53:00 27.80 kg/m2 [facility] [place] [facility] Procedures Procedure Date / Time Performing Clinician Source Performed US RETROPERITONEAL 2022-06-26 20:53:00 Requisition, Paper [facility] Branch CONSENT/REFUSAL FOR 2022-06-26 19:38:32 Doctor Unassigned, [facility] DIAGNOSIS AND TREATMENT [facility] ASSIGNMENT OF BENEFITS 2022-06-26 19:38:12 Doctor Unassigned, [facility] Name Medical Branch CONSENT FOR DEPO-PROVERA 2020-09-15 06:01:00 Doctor Unassraheel, [facility] CBC WITH DIFF 2020-08-23 09:41:00 Chemo Yates [place] o f [facility] VENOUS CORD GAS 2020-08-22 20:49:00 Chemo Yates [facility] CBC WITH DIFF 2020-08-22 10:38:00 Chemo Yates [facility] HEPATITIS B SURFACE 2020-08-22 10:38:00 Chemo Yates [facility] ANTIGEN [facility] Branch ADC OR QUITA ONLY - RPR 2020-08-22 10:38:00 [facility] WITH REFLEX 2020-08-22 10:38:00 [facility] (ID NOW RAPID 2020-08-22 10:38:00 Chemo Yates [facility] TESTING) Medical Branch LAB ONLY COVID 2020-08-22 10:38:00 Chemo Yates [facility] INTERPRETATION [facility] HB ABO GROUPING 2020-08-22 10:36:00 Chemo Yates [facility] RHO (D) IMMUNE GLOBULIN 2020-08-22 10:36:00 Chemo Yates [facility] HOSPITAL ADMISSION 2020-08-22 05:01:00 Doctor Unassigned, [facility] Name Medical [place] ASSIGNMENT OF BENEFITS 2020-08-18 21:29:24 Doctor Unassigned, [facility] Name Medical [place] >14 WEEKS US 2020-08-10 14:51:15 Chemo Yates [facility] DSU PRE-OP 2020-08-10 05:01:00 Doctor Unassigned, [facility] [place] POCT URINALYSIS W/O 2020-08-10 00:00:00 Chemo Yates [facility] SPECIFIC GRAVITY [facility] FLU VACC ([phone]), 6+ 2020-07-28 16:26:55 Chemo Yates [facility] MONTHS, IM, QUAD Medical Branch DME/SUPPLY JUSTIFICATION 2020-07-28 05:01:00 Doctor Unassigned, [facility] [place] POCT URINALYSIS W/O 2020-07-28 00:00:00 Chemo Yates [facility] SPECIFIC GRAVITY Medical Branch POCT URINALYSIS W/O 2020-07-01 00:00:00 Sophia Heard [facility] POCT URINALYSIS W/O 2020-06-17 00:00:00 Chemo Yates [facility] SPECIFIC [facility] CBC WITH DIFF 2020-06-10 15:25:00 Sophia Heard [facility] CONSENT/REFUSAL FOR 2020-06-10 13:37:42 Doctor Unamustapha, [facility] DIAGNOSIS AND TREATMENT [facility] [place] ASSIGNMENT OF BENEFITS 2020-06-10 13:37:26 Doctor Unassraheel, Un [facility] Name [facility] TDAP VACCINE, >11 YRS, IM 2020-06-03 16:36:16 Sophia Heard Un [facility] POCT URINALYSIS W/O 2020-06-03 00:00:00 Sophia Heard [facility] POCT URINALYSIS W/O 2020-05-06 00:00:00 Sophia Heard [facility] POCT URINALYSIS W/O 2020-04-07 00:00:00 Chemo Yates [facility] POCT URINALYSIS 2020-04-02 18:10:00 Justin [facility] AGREEMENTS AUTHORIZATIONS 2020-03-09 05:01:00 Doctor Koby, [facility] AND IRREVOCABLE [facility] [place] ASSIGNMENTS (FORM 2001) SCANNED LAB RESULTS 2020-02-10 05:01:00 Doctor Koby [facility] <14 WEEKS US 2020-01-11 23:15:16 Chemo Yates [facility] HOSPICE PLAN ADMINISTRATOR CLINIC ULTRASOUND 2020-01-11 05:01:00 Doctor Koby, [facility] [place] US OB TRANSVAGINAL 2019-12-24 09:53:24 [facility] 2019-12-23 21:58:00 Chemo Yates [facility] POCT TEST 2019-12-23 00:00:00 Chemo Yates [facility] POCT URINALYSIS W/O 2019-12-23 00:00:00 Chemo Yates [facility] [place] SPECIFIC [facility] Encounters Start End Encounter Admission Attending Care Care Encounter Source Date/Time Date/Time Type Type Clinicians Facility Department ID 2021-08-26 Outpatient P [facility] NIURKA [id number] Univers 00:35:48 ity of [facility] 2022-08-07 2022-08-07 Outpatient R BO LEE [facility] [id number] Univers 15:30:00 15:30:00 ity of [facility] 2022-06-26 2022-06-26 Outpatient R RADIOLOGY [facility] [id number] Univers 14:39:56 23:59:00 ity of [facility] 2022-06-26 2022-06-26 Hospital Radiology [facility] 1.2.840.114 [id number] Univers 14:39:56 23:59:00 Encounter [facility] 350.1.13.10 ity of [place] 4.2.7.2.686 [facility] [id number] [facility] [address]06 [place] 2021-06-08 2021-06-08 Laboratory Lab, Adc Fam Pob I [facility] 1.2. 840.114 [id number] Univers 18:44:19 19:04:19 Only [facility] 350.1.13.10 ity of [place] 4.2.7.2.686 Adarsh as Professio [phone] [address] Office Building One 2021-06-08 2021-06-08 Outpatient R HENRY [facility] [id number] Univers 19:00:00 19:00:[facility] 2021-05-18 2021-05-18 Outpatient R [facility] [id number] Univers 09:00:00 09:00:00 ity of [facility] 2021-04-03 2021-04-03 Outpatient R ORQUIDEA [facility] [id number] Univers 13:30:00 13:30:00 [facility] 2021-03-15 2021-03-15 Outpatient R ORQUIDEA [facility] [id number] Univers 08:00:00 08:00:00 [facility] 2021-02-16 2021-02-16 Nurse Nurse, [facility] 1.2.840.114 [id number] Univers 10:01:31 10:24:11 Visit Sophia Heard 350.1.13.10 it[place] of [place] [phone] Ga dical nal [address] [facility] 2021-02-16 2021-02-16 Outpatient R [facility] [id number] Univers 10:00:00 10:00:00 ity of [facility] 2020-11-23 2020-11-23 Nurse Nurse, [facility] 1.2.840.114 [id number] Univers 08:08:16 08:49:20 Visit Celine Yatesen Axel Padron 350.1.13.10 ity of [place] [phone] Ga dical nal [address] [place] [address] 2020-11-23 2020-11-23 Outpatient R [facility] [id number] Univers 08:00:00 08:00:00 ity of [facility] 2020-10-18 2020-10-18 Laboratory Lab, [facility] Fam Pob I [facility] 1.2. 840.114 [id number] Univers 19:07:40 19:27:40 Only [place] 350.1.13.10 ity of [place] 4.2.7.2.686 [place] as Professio [phone] Ga dical nal [address] [place] Office [address] 2020-10-18 2020-10-18 Outpatient R [facility] [id number] Univers 19:20:00 19:20:00 ity of [facility] 2020-09-15 2020-09-15 [facility] 1.2.114.407 [id number] Univers 11:23:30 11:38:30 Sophia Padron 350.1.13.10 ity of [place] [phone] Ga dical nal [address] [facility] 2020-09-15 2020-09-15 [facility] [id number] Univers 11:30:00 11:30:00 SOPHIA ity of [facility] 2020-09-15 2020-09-15 Orders Doctor MARYJO 1.2.840.114 [id number] Univers 00:00:00 00:00:00 Only Unassigned, ZAK 350.1.13.[address] [facility] 4.2.7.2.686 [place] as [phone] [address] 2020-08-22 2020-08-23 Hospital [facility] 1.2.840.114 [id number] Univers 03:53:00 19:55:00 Encounter Cam [place] 350.1.13.10 it[place] [phone] [address] 2020-08-22 2020-08-22 Outpatient R [facility] [id number] Univers 09:15:00 09:15:00 ity of [facility] 2020-08-22 2020-08-22 Orders Doctor SIBLEY 1.2.840.114 [id number] Univers 00:00:00 00:00:00 Only Unassigned, ZAK 350.1.13.[address] [facility] 4.2.7.2.686 [place] as [phone] [address] 2020-08-18 2020-08-18 Routine [facility] 1.2.005.600 [id number] Univers 12:52:48 13:30:31 Cam [place] 350.1.13.10 ity of [place] [facility] [phone] [facility] 2020-08-18 2020-08-18 Outpatient R TRUDY CHEMO [facility] [id number] Univers 13:00:00 13:00:00 ity of [facility] 2020-08-18 2020-08-18 Orders Doctor MARYJO Martinez2.840.114 [id number] Univers 00:00:00 00:00:00 Only Unassigned, ZAK 350.1.13.[address] [facility] 4.2.7.2.686 [place] as [phone] [address] 2020-08-10 2020-08-10 Outpatient R CHEMO YATES [facility] [id number] Univers 09:15:00 09:15:00 ity of [facility] 2020-08-10 2020-08-10 Routine Cheom Yates [facility] 1.2.598.596 [id number] Univers 08:56:31 09:11:31 Axel Padron 350.1.13.10 ity of [place] [phone] Me dical nal 134 [facility] 2020-08-10 2020-08-10 Orders Doctor MARYJO 1.2.840.114 [id number] Univers 00:00:00 00:00:00 Only Unassigned, ZAK 350.1.13.[address] [facility] 4.2.7.2.686 [place] as [phone] [address] 2020-08-09 2020-08-09 Plant Physiology Teacher 2, Adc Lab [facility] 1.2.840.114 [id number] Univers 13:43:22 13:58:22 Visit Chemo Yates Nereida 350.1.13.10 ity of [place] [phone] Ga dical nal [address] [facility] 2020-08-09 2020-08-09 Outpatient R ORQUIDEA [facility] [id number] Univers 13:30:00 13:30:00 SOPHIA ity of [facility] 2020-08-09 2020-08-09 Case Chemo Yates [facility] 1.2.881.373 [id number] Univers 00:00:00 00:00:00 Management Axel Padron 350.1.13.10 ity of [place] [phone] Ga dical nal 134 [facility] 2020-07-28 2020-07-28 Routine Chemo Yates [facility] 1.2.840.114 [id number] Univers 11:04:19 11:54:14 Sophia Heard 350.1.13.10 ity of [place] Profess[place] [phone] [address] 2020-07-28 2020-07-28 Outpatient R GABRIELSAVANNAHREA [facility] [id number] Univers 11:15:00 11:15:00 SOPHIA itroman [facility] 2020-07-28 2020-07-28 Orders Doctor MARYJO 1.2.840.114 [id number] Univers 00:00:00 00:00:00 Only Unassigned, ZAK 350.1.13.[address] [facility] 4.2.7.2.686 [place] as [phone] [address] 2020-07-27 2020-07-27 Telephone Orquidea [facility] 1.2.840.114 [id number] Univers 00:00:00 00:00:00 Sophia Padron 350.1.13.10 i ty of [place] [phone] [address] 2020-07-27 2020-07-27 Telephone [facility] 1.2.840.114 [id number] Univers 00:00:00 00:00:00 Cam [place] 350.1.13.10 i ty of [place] Profess[place] [phone] [address] 2020-07-27 2020-07-27 [facility] 1.2.840.114 [id number] Univers 00:00:00 00:00:00 Cam [place] 350.1.13.10 i ty of [place] 4[place] Profess[place] [phone] [address] 2020-07-20 2020-07-20 Telephone [facility] 1.2.840.114 [id number] Univers 00:00:00 00:00:00 Cam [place] 350.1.13.10 i ty of [place] 4[place]2.7.2.[place] Profess[place] [phone] [address] 2020-07-15 2020-07-15 Refill [facility] 1.2.904.187 [id number] Univers 00:00:00 00:00:00 Cam [place] 350.1.13.10 i ty of [place]2.7.2.[place] Profess[place] [phone] [address] 2020-07-14 2020-07-14 Telemedici Gabrielanu [facility] 1.2.840.114 [id number] Univers 08:32:42 12:12:47 ne Visit Sophia Nereida 350.1.13.10 ity of [place] 4[place]2.7.2.[place] [phone] [address] 2020-07-14 2020-07-14 Outpatient R ORQUIDEA [facility] [id number] Univers 11:15:00 11:15:00 SOPHIA itroman [facility] 2020-07-01 2020-07-01 Routine Chemo Yates [facility] 1.2.840.114 [id number] Univers 09:00:29 09:45:56 Orquidea Sophiasalena Padron 350.1.13.10 ity of Visit [place] 4.[place].2.[place] Profess[place] [phone] [address] 2020-07-01 2020-07-01 Outpatient R ORQUIDEA [facility] [id number] Univers 09:00:00 09:00:00 SOPHIA itroman [facility] 2020-06-17 2020-06-17 Routine [facility] 1.2.804.682 [id number] Univers 11:10:02 15:55:27 Axel Padron 350.1.13.10 ity of [place] Profess[place] [phone] [address] 2020-06-17 2020-06-17 Outpatient R CHEMO YATES [facility] [id number] Univers 09:00:00 09:00:00 ity of [facility] 2020-06-10 2020-06-10 Outpatient R CHEMO YATES [facility] [id number] Univers 09:00:00 09:00:00 ity of [facility] 2020-06-10 2020-06-10 Plant Physiology Teacher Lo Ansari Lab Main [facility] 1.2.8 40.114 [id number] Univers 08:39:25 08:54:25 Visit TrudyChemo Axel Padron 350.1.13.10 ity of [place] 4.2.7.2.[place] Profess[place] [phone] Ga dical nal [address] [facility] 2020-06-10 2020-06-10 Orders Doctor MARYJO 1.2.840.114 [id number] Univers 00:00:00 00:00:00 Only Unassigned, ZAK 350.1.13.[address] [facility] 4.2.7.2.686 [place] as [phone] [address] 2020-06-06 2020-06-06 Outpatient R [facility] [id number] Univers 10:45:00 10:45:00 ity of [facility] 2020-06-03 2020-06-03 Routine [facility] 1.2.251.243 [id number] Univers 11:16:20 11:42:07 Sophia Padron 350.1.13.10 ity of [place] [phone] Ga dical nal [address] [facility] 2020-06-03 2020-06-03 [facility] [id number] Univers 11:30:00 11:30:00 SOPHIA ity [facility] 2020-05-06 2020-05-06 Outpatient [facility] [id number] Univers 16:15:00 16:15:00 SOPHIA ity [facility] 2020-05-06 2020-05-06 Routine [facility] 1.2.411.796 [id number] Univers 13:05:12 13:38:21 Sophia Padron 350.1.13.10 ity of [place] [phone] Ga dical nal 134 [facility] 2020-04-19 2020-04-19 Plant Physiology Teacher Ultrasound, [facility] 1.2 .840.114 [id number] Univers 10:36:43 11:23:34 Visit Eladio Neal HOSPICE PLAN ADMINISTRATOR 350.1.13.10 ity of [facility] 4.2.7.2.686 [place] as MATERNAL [phone] Med ical & CHILD [address] [place] [address] 2020-04-19 2020-04-19 Outpatient P [facility] [id number] Univers 10:30:00 10:30:00 ity of [facility] 2020-04-07 2020-04-07 Routine [facility] 1.2.410.369 [id number] Univers 08:35:50 09:10:58 Cam [place] 350.1.13.10 ity of [place] Profess[place] [phone] Ga dical nal [address] [place] [address] 2020-04-07 2020-04-07 Outpatient R TRUDY CHEMO [facility] [id number] Univers 08:30:00 08:30:00 ity of [facility] 2020-04-02 2020-04-02 Urgent Provider, [facility] Urgent Care [facility] 1.2.840.114 [id number] Univers 12:42:41 13:23:46 Care [facility] 350.1.13.10 ity of [place] 4.2.7.2.686 [place] as Professio [phone] [facility] 044 [place] [facility] One 2020-04-02 2020-04-02 Outpatient R JUSTIN [facility] [id number] Univers 12:40:00 12:40:00 RADHA ity of [facility] 2020-04-02 2020-04-02 Letter Justin [facility] 1.2.840.114 [id number] Univers 00:00:00 00:00:00 (Out) [facility] 350.1.13.10 it y of [place] 4.2.7.2.686 [place] as Professio [phone] Ga dical nal [address] [place] [address] One 2020-04-01 2020-04-01 Telephone Chemo Yates [facility] 1.2.840.114 [id number] Univers 00:00:00 00:00:00 Cam [place] 350.1.13.10 i ty of [place] [phone] Ga dical nal 134 [facility] 2020-03-09 2020-03-09 Plant Physiology Teacher 2, Adc Lab [facility] 1.2.840.114 [id number] Univers 08:08:26 08:23:26 Visit Chemo Yateston 350.1.13.10 ity of [place] [phone] Ga dical nal 353 [facility] 2020-03-09 2020-03-09 Outpatient R [facility] [id number] Univers 08:15:00 08:15:00 ity of [facility] 2020-03-09 2020-03-09 Orders Doctor MARYJO 1.2.840.114 [id number] Univers 00:00:00 00:00:00 Only Unassigned, ZAK 350.1.13.[address] [facility] 4.2.7.2.686 [place] as [phone] [address] 2020-03-07 2020-03-07 Telemedici Sophia Heard [facility] 1.2.840 .114 [id number] Univers 08:11:42 14:15:39 ne Visit Chemo Yates [place] 350.1.13.10 ity of [place] [phone] Ga dical nal 134 [facility] 2020-03-07 2020-03-07 Outpatient R CHEMO YATES [facility] [id number] Univers 13:00:00 13:00:00 ity of [facility] 2020-02-17 2020-02-17 Telephone Chemo Yates [facility] 1.2.840.114 [id number] Univers 00:00:00 00:00:00 Cam [place] 350.1.13.10 i ty of [place] [phone] Ga dical nal 134 [facility] 2020-02-16 2020-02-16 Telephone Chemo Yates [facility] 1.2.840.114 [id number] Univers 00:00:00 00:00:00 Cam [place] 350.1.13.10 i ty of [place] [phone] Ga dical nal 134 [facility] 2020-02-10 2020-02-10 Outpatient R [facility] [id number] Univers 08:15:00 08:15:00 ity of [facility] 2020-02-10 2020-02-10 Orders Doctor MARYJO 1.2.840.114 [id number] Univers 00:00:00 00:00:00 Only Unassigned, ZAK 350.1.13.[address] [facility] 4.2.7.2.686 Adarsh as [phone] [address] 2020-02-09 2020-02-09 Outpatient R [facility] [id number] Univers 17:00:00 17:00:00 ity of [facility] 2020-02-08 2020-02-08 Telemedici Trudy [facility] 1.2.840.114 [id number] Univers 08:12:42 14:21:44 ne Visit Axel Padron 350.1.13.10 ity of [place] [phone] Ga dical [address] 2020-02-08 2020-02-08 Outpatient R TRUDY [facility] [id number] Univers 13:30:00 13:30:00 ity of [facility] 2020-01-25 2020-01-25 Plant Physiology Teacher Lo Ansari Lab Main [facility] 1.2.8 40.114 [id number] Univers 17:07:36 17:22:36 Visit Trudy Chemojeffery Padron 350.1.13.10 ity of [place] 4.2.7.2.[place] Profess[place] [phone] Ga dical [address] 2020-01-25 2020-01-25 Outpatient R TRUDY [facility] [id number] Univers 17:15:00 17:15:00 ity of [facility] 2020-01-18 2020-01-18 Telephone Yates [facility] 1.2.840.114 [id number] Univers 00:00:00 00:00:00 Cam [place] 350.1.13.10 i ty of [place] 4[place].7.2.[place] Profess[place] [phone] Ga dical nal [address] [place] [address] 2020-01-11 2020-01-11 Routine Yates, [facility] 1.2.438.305 [id number] Univers 16:08:49 16:42:35 Axel [place] 350.1.13.10 ity of Visit [place] Profess[place] [phone] [facility] 134 [facility] 2020-01-11 2020-01-11 Outpatient R CHEMO YATES [facility] [id number] Univers 16:15:00 16:15:00 ity of [facility] 2020-01-11 2020-01-11 Orders Doctor MARYJO 1.2.840.114 [id number] Univers 00:00:00 00:00:00 Only Unassigned, ZAK 350.1.13.[address] [facility] 4.2.7.2.686 Adarsh as [phone] [address] 2020-01-06 2020-01-06 Outpatient R CHEMO YATES [facility] [id number] Univers 15:30:00 15:30:00 ity of [facility] 2019-12-30 2019-12-30 Plant Physiology Teacher Elan, Adc Lab Main [facility] 1.2.8 40.114 [id number] Univers 16:58:18 17:13:18 Visit Chemo Yates Axel Palomareston 350.1.13.10 ity of [place] [phone] [facility] 353 [facility] 2019-12-30 2019-12-30 Outpatient R CHEMO YATES [facility] [id number] Univers 17:00:00 17:00:00 ity of [facility] 2019-12-29 2019-12-29 Telephone Trudy [facility] 1.2.840.114 [id number] Univers 00:00:00 00:00:00 Cam [place] 350.1.13.10 i ty of [place] [phone] [facility] 134 [facility] 2019-12-28 2019-12-28 Plant Physiology Teacher Elan, Adc Lab Main [facility] 1.2.8 40.114 [id number] Univers 16:38:55 16:53:55 Visit Chemo Yates Cam [place] 350.1.13.10 ity of [place].2.[place] Profess[place] [phone] Ga dical nal [address] [place] [address] 2019-12-28 2019-12-28 Outpatient R CHEMO YATES [facility] [id number] Univers 16:45:00 16:45:00 ity [facility] 2019-12-24 2019-12-24 Telephone Chemo Yates [facility] 1.2.840.114 [id number] Univers 00:00:00 00:00:00 Cam [place] 350.1.13.10 i ty of [place] [phone] [address] 2019-12-23 2019-12-23 Plant Physiology Teacher 2, Adc Lab [facility] 1.2.840.114 [id number] Univers 15:53:29 16:08:29 Visit Chemo Yates Axel Palomareston 350.1.13.10 ity of [place] [phone] [address] 2019-12-23 2019-12-23 Initial Chemo Yates [facility] 1.2.529.044 [id number] Univers 09:38:01 10:52:58 Axel Palomareston 350.1.13.10 ity of Visit [place].2.[place] [phone] [address] 2019-12-23 2019-12-23 Outpatient R CHEMO YATES [facility] [id number] Univers 10:00:00 10:00:00 ity [facility] Results Test Description Test Time Test Comments Results Result Comments Source CBC with Differential 2020-08-23 10:07:00 Test Item Value Reference Range Interpretation Comme nts WBC (test code = 6690-2) See_Comment H [A utomated message] The system which ge nerated this result transmit maye reference range: 4.30 - 1 1.10 10*3/?L. The reference r kevin was not used to interpr et this result as normal/abnor mal. RBC (test code = 789-8) See_Comment L [Au tomated message] The system which ge nerated this result transmit maye reference range: 3.93 - 5 .25 10*6/?L. The reference r kevin was not used to interpr et this result as normal/abnor mal. HGB (test code = 718-7) 9.0 g/dL 11.6-15 L HCT (test code = 4544-3) 27.7 % 35.7-45.2 L MCV (test code = 787-2) 81.2 fL 80.6-95.5 MCH (test code = 785-6) 26.4 pg 25.9-32.8 MCHC (test code = 786-4) 32.5 g/dL 31.6-35.1 RDW-SD (test code = 92802-7) 39.6 fL 39-49.9 RDW-CV (test code = 788-0) 13.6 % 12-15.5 PLT (test code = 777-3) See_Comment L [Au tomated message] The system which [employer] nerated this result transmit maye reference range: 166 - 35 8 10*3/?L. The reference range was not used to interpret th is result as normal/abnormal . MPV (test code = 62114-1) 11.2 fL 9.5-12.9 NRBC/100 WBC (test code = See_Comment [ Automated message] The [id number]) system which [employer] nerated this result transmit maye reference range: 0.0 - 10 .0 /100 WBCs. The reference r kevin was not used to interpr et this result as normal/abnor mal. NRBC x10^3 (test code = <0.01 See_Comment [Au tomated message] The [id number]) system which [employer] nerated this result transmit maye reference range: 10*3/?L. The reference range was not u sed to interpret this result as normal/abnormal . GRAN MAT (NEUT) % (test code 71.7 % = 770-8) IMM GRAN % (test code = 0.40 % [id number]) LYMPH % (test code = 736-9) 21.1 % MONO % (test code = 5905-5) 5.5 % EOS % (test code = 713-8) 1.0 % BASO % (test code = 706-2) 0.3 % GRAN MAT x10^3(ANC) (test 8.72 10*3/uL 1.88-7.09 H code = [id number]) IMM GRAN x10^3 (test code = 0.05 10*3/uL 0-0.06 [id number]) LYMPH x10^3 (test code = 2.56 10*3/uL 1.32-3.29 731-0) MONO x10^3 (test code = 0.67 10*3/uL 0.33-0.92 742-7) EOS x10^3 (test code = 0.12 10*3/uL 0.03-0.39 711-2) BASO x10^3 (test code = 0.04 10*3/uL 0.01-0.07 704-7) Lab Interpretation (test Abnormal code = 95360-6) [facility] OR [facility] ONLY - [id number] 06:12:00 Test Item Value Reference Range Interpretation Comments RPR (Qualitative) (test code = Nonreactive Nonreactive 38920-4) Lab Interpretation (test code = Normal 90859-4) [facility] ONLY COVID [id number] 00:29:00COVID DMT InterpretationInterpretation/Recommendations\nTests (PCR) for Active Infection by COVID-19Virus: This result indicates that the patient has been tested negative for the COVID-19 virus on oneoccasion. The most likely interpretation, for approximately two-thirds of patients with a negative test, is that the patient is truly negative and has not been infected with the COVID- 19 virus. However, for those tested using a nasopharyngeal sample, there is approximately a [id number] chance that the patient was infected and the result of the first test is a false negative. This occurs because the virus is predominantly in the lung and out of reach of the nasopharyngeal swab. If the patientbecomes progressively more symptomatic, a repeat PCR test should be performed. Tests for IgM and/or IgG Antibodies to COVID-19 Virus: A. ? A test for IgM antibody to the COVID-19 virus is likely to be highly informative at this time. IgM antibodies to the COVID-19 virus identified in a high performing test, usually an GRAHAM or chemiluminescence based assay, should appear in most patients who are truly infected within approximately a week from the onset of symptoms, and in nearly all patients 2 to 3 weeks after symptoms begin. If the high performing IgM test is positive, even if the initial PCR testfor active infection was negative, it is highly probable the patient has been infected with the virus at some point. A repeat PCR test to determine if the patient has recovered from the infection wouldbe important to perform if the IgM xtyc-CAUIL-29 antibody test is positive. B. ? A test for IgG antibodies to the COVID-19 virus was not performed and is also likely to be informative. The sample for the IgG antibody test should be collected 2 or more weeks post onset of symptoms. It is the IgG antibodies that can confer long-term immunity to infectious agents. However, at this time, it is not ?knownif the production of IgG antibodies indicates whether the patient is immune to future infections with the COVID-19 virus. It is also not known how long IgG antibodies to the COVID-19 virus persist, andtherefore the length of immunity to future COVID-19 infections. C. ? Although it is uncommon, some patients cannot ever mount an antibody response to infectious agents, such as COVID-19. If there are pe rsistently negative results for IgM and IgG antibodies, this may be the explanation. ? ?[facility] LABORATORY SERVICESCOVID [id number] Rapid ID NOW (no units) ? ? Date ? Value ? 08/22/2020 ? Not Detected ? [facility] LABORATORY SERVICESUnNorthwest [facility] Healthcare SystemRHO (D) IMMUNE [id number] 23:28:48 Test Item Value Reference Range Interpretation Comments RHIG CANDIDATE? No- see comment Patient i s not a (test code = candidate for R [facility]- 5055) Patient is Rh Positive.Perfor med at [facility] Laboratory Services - [facility] Blood [address] [place] [id number] Free: [phone] A No. [id number] [facility] Center[facility] Cord [id number] 21:03:00 Test Item Value Reference Range Interpretation Comments VENOUS BASE EXCESS, CORD mEq/L (test code = 0437677607) VENOUS PH, CORD (test 7.25-7.45 code = 3496647324) VENOUS PC02, CORD (test See_Comment [Au tomated message] code = 8564818217) The syste m which generated this result transmitted ref erence range: 27 - 49 mmHg. The reference r kevin was not used to interpret this result as normal/abnor mal. VENOUS PO2, CORD (test See_Comment H [Aut omated message] code = 9437255575) The syste m which generated this result transmitted ref erence range: 17 - 41 mmHg. The reference r kevin was not used to interpret this result as normal/abnor mal. VENOUS BICARBONATE, CORD See_Comment [A utomated message] (test code = 0492563562) The system which generated this result transmitted ref erence range: 12 - 29 mEq/L. The reference r kevin was not used to interpret this result as normal/abnor mal. Lab Interpretation (test Abnormal code = 39056-6) [facility] Cord [id number] 21:01:00 Test Item Value Reference Range Interpretation Comments BASE EXCESS, CORD (test mEq/L code = 3517370451) AC PH, CORD (BEAKER) 7.18-7.38 L (test code = 8781149392) PC02, CORD (test code = See_Comment H [Au tomated message] 0314238483) The system whic h generated this result transmitted ref erence range: 32 - 66 mmHg. The reference r kevin was not used to interpret this result as normal/abnor mal. PO2, CORD (test code = See_Comment [Aut omated message] 1835733032) The system whic h generated this result transmitted ref erence range: 10 - 30 mmHg. The reference r kevin was not used to interpret this result as normal/abnor mal. BICARBONATE, CORD (test See_Comment [Au tomated message] code = 8928326879) The syste m which generated this result transmitted ref erence range: 17 - 27 mEq/L. The reference r kevin was not used to interpret this result as normal/abnor mal. Lab Interpretation (test Abnormal code = 05445-2) [facility] [id number] 15:46:00 Test Item Value Reference Range Interpretation Comments HBsAg Semi-Quantitative (test code = Negative Negative 5195-3) [facility] CenterHIV 1/2 AG-AB WITH [id number] 14:04:00 Test Item Value Reference Range Interpretation Comments HIV Negative Negative Semi-quantitative (test code = 12806-2) [facility]IA GUADALUPE (test code = Non-reactive for HIV-1 MARIA GUADALUPE) antigen and HIV-1/HIV-2 antibodies. ?No laboratory evidence of HIV infection. ?Repeat in 2-4 weeks if acute HIV infection is suspected. [facility] CenterType and Screen - ONCE [id number] 13:13:04 Test Item Value Reference Range Interpretation Comments ABO & RH (test code A Positive Performe d at [facility] = 20) Laboratory [facility] Blood [address] [place], [place] [address]Toll Free: [phone] A No. [id number] IAT (test code = Negative Performed a t [facility] 1185) Laboratory [facility] Blood Bank[address] [place], [place] [id number] Free: [phone] A No. [id number] [facility] CenterCOVID-19 (ID NOW RAPID TESTING)2020-08-22 11:45:00 Test Item Value Reference Range Interpretation Comments SARS-CoV-2 Rapid ID NOW Not Detected Not Detected (test code = 68904-0) MARIA GUADALUPE (test code = MARIA GUADALUPE) ID NOW COVID-19 Assay is an isothermal nucleic acid amplification test intended for the qualitative detection of nucleic acid from SARS-CoV-2 viral RNA in nasopharyngeal (LOSS CLAIM CLERK) specimens. It is used under Emergency Use Authorization (EUA) by FDA. The limit of detection (LOD) of the assay is 125 Genome Equivalents/mL. A positive result is indicative of the presence of SARS-CoV-2 RNA. ?Clinical correlation with patient history and other diagnostic information is necessary to determine patient infection status. A negative (Not Detected) result does not preclude SARS-CoV-2 infection. In patients with clinical symptoms and other tests that are consistent with SARS-CoV-2 infection, negative results should be treated as presumptive negative and a new specimen should be tested with alternative PCR molecular test. Invalid: Please collect a new specimen for repeat patient testing if clinically indicated. Lab Interpretation Normal (test code = 77351-1) [facility] with [id number] 11:23:00 Test Item Value Reference Range Interpretation Comments WBC (test code = See_Comment [Automated 6690-2) message] The sy stem which generated this result transmitted reference range : 4.30 - 11.10 10*3/?L. The reference range was not used to interpret this result as normal/abnormal . RBC (test code = See_Comment L [Automated 789-8) message] The sy stem which generated this result transmitted reference range : 3.93 - 5.25 10*6/?L. The reference range was not used to interpret this result as normal/abnormal . HGB (test code = 10.2 g/dL 11.6-15 L 718-7) HCT (test code = 31.4 % 35.7-45.2 L 4544-3) MCV (test code = 81.3 fL 80.6-95.5 787-2) MCH (test code = 26.4 pg 25.9-32.8 785-6) MCHC (test code = 32.5 g/dL 31.6-35.1 786-4) RDW-SD (test code = 38.8 fL 39-49.9 L 14259-6) RDW-CV (test code = 13.4 % 12-15.5 788-0) PLT (test code = See_Comment [Automated 777-3) message] The sy stem which generated this result transmitted reference range : 166 - 358 10*3/ ?L. The reference r kevin was not used to interpret this result as normal/abnormal . MPV (test code = 11.4 fL 9.5-12.9 25933-0) NRBC/100 WBC (test See_Comment [Automat ed code = 2474169734) message] The system which generated this result transmitted reference range : 0.0 - 10.0 /100 WBCs. The refer ence range was not u sed to interpret th is result as normal/abnormal . NRBC x10^3 (test code <0.01 See_Comment [Auto mated = 2195457109) message] The s ystem which generated this result transmitted reference range : 10*3/?L. The reference range was not used to interpret this result as normal/abnormal . GRAN MAT (NEUT) % 62.7 % (test code = 770-8) IMM GRAN % (test code 0.80 % = 3610938962) LYMPH % (test code = 27.4 % 736-9) MONO % (test code = 7.1 % 5905-5) EOS % (test code = 1.5 % 713-8) BASO % (test code = 0.5 % 706-2) GRAN MAT x10^3(ANC) 5.78 10*3/uL 1.88-7.09 (test code = 1512350846) IMM GRAN x10^3 (test 0.07 10*3/uL 0-0.06 H code = 0944010106) LYMPH x10^3 (test code 2.52 10*3/uL 1.32-3.29 = 731-0) MONO x10^3 (test code 0.65 10*3/uL 0.33-0.92 = 742-7) EOS x10^3 (test code = 0.14 10*3/uL 0.03-0.39 711-2) BASO x10^3 (test code 0.05 10*3/uL 0.01-0.07 = 704-7) Lab Interpretation Abnormal (test code = 55950-8) [facility]>14 WEEKS US [id number] 14:51:37Limited USG for presentation: ?Cephalic Chemojeffery Yates MD ?08/10/2020 ?9:51 AMUnNorthwest Texas Healthcare SystemPOCT URINALYSIS W/O SPECIFIC GRAVITY 2020-08-10 14:35:00 Test Item Value Reference Range Interpretation Comments POCT PH U (test code = 3254) n/a 5-8 POCT U LEUK EST (test code = 3263) n/a Negative - Negative POCT U NIT (test code = 3262) n/a Negative - Negative POCT U PROT (test code = 3259) neg Negative - Negative POCT U GLU (test code = 3256) neg Negative - Negative POCT U KETONE (test code = 3258) n/a Negative - Negative POCT U BLD (test code = 3257) n/a Negative - Negative [facility] URINALYSIS W/O SPECIFIC [id number] 16:27:00 Test Item Value Reference Range Interpretation Comments POCT PH U (test code = 3254) n/a 5-8 POCT U LEUK EST (test code = 3263) n/a Negative - Negative POCT U NIT (test code = 3262) n/a Negative - Negative POCT U PROT (test code = 3259) neg Negative - Negative POCT U GLU (test code = 3256) neg Negative - Negative POCT U KETONE (test code = 3258) n/a Negative - Negative POCT U BLD (test code = 3257) n/a Negative - Negative Lab Interpretation (test code = Normal 88409-7) [facility] URINALYSIS W/O SPECIFIC [id number] 14:10:00 Test Item Value Reference Range Interpretation Comments POCT PH U (test code = 3254) n/a 5-8 POCT U LEUK EST (test code = 3263) n/a Negative - Negative POCT U NIT (test code = 3262) n/a Negative - Negative POCT U PROT (test code = 3259) neg Negative - Negative POCT U GLU (test code = 3256) neg Negative - Negative POCT U KETONE (test code = 3258) n/a Negative - Negative POCT U BLD (test code = 3257) n/a Negative - Negative [facility] URINALYSIS W/O SPECIFIC [id number] 16:50:00 Test Item Value Reference Range Interpretation Comments POCT PH U (test code = 3254) 7 mg/dl 5-8 POCT U LEUK EST (test code = neg Negative - Negative 3263) POCT U NIT (test code = 3262) neg Negative - Negative POCT U PROT (test code = 3259) trace Negative - Negative POCT U GLU (test code = 3256) neg Negative - Negative POCT U KETONE (test code = 3258) neg Negative - Negative POCT U BLD (test code = 3257) neg Negative - Negative Lab Interpretation (test code = Normal 57309-5) [facility] WITH [id number] 15:37:00 Test Item Value Reference Range Interpretation Comments WBC (test code = See_Comment [Automated 6690-2) message] The sy stem which generated this result transmitted reference range : 4.30 - 11.10 10*3/?L. The reference range was not used to interpret this result as normal/abnormal . RBC (test code = See_Comment [Automated 789-8) message] The sy stem which generated this result transmitted reference range : 3.93 - 5.25 10*6/?L. The reference range was not used to interpret this result as normal/abnormal . HGB (test code = 11.0 g/dL 11.6-15 L 718-7) HCT (test code = 32.9 % 35.7-45.2 L 4544-3) MCV (test code = 83.7 fL 80.6-95.5 787-2) MCH (test code = 28.0 pg 25.9-32.8 785-6) MCHC (test code = 33.4 g/dL 31.6-35.1 786-4) RDW-SD (test code = 38.0 fL 39-49.9 L 70384-2) RDW-CV (test code = 12.5 % 12-15.5 788-0) PLT (test code = See_Comment [Automated 777-3) message] The sy stem which generated this result transmitted reference range : 166 - 358 10*3/ ?L. The reference r kevin was not used to interpret this result as normal/abnormal . MPV (test code = 10.0 fL 9.5-12.9 74834-3) NRBC/100 WBC (test See_Comment [Automat ed code = 5768620657) message] The system which generated this result transmitted reference range : 0.0 - 10.0 /100 WBCs. The refer ence range was not u sed to interpret th is result as normal/abnormal . NRBC x10^3 (test code <0.01 See_Comment [Auto mated = 2468787863) message] The s ystem which generated this result transmitted reference range : 10*3/?L. The reference range was not used to interpret this result as normal/abnormal . GRAN MAT (NEUT) % 64.0 % (test code = 770-8) IMM GRAN % (test code 0.70 % = 0521707494) LYMPH % (test code = 25.7 % 736-9) MONO % (test code = 7.5 % 5905-5) EOS % (test code = 1.7 % 713-8) BASO % (test code = 0.4 % 706-2) GRAN MAT x10^3(ANC) 5.22 10*3/uL 1.88-7.09 (test code = 2911010329) IMM GRAN x10^3 (test 0.06 10*3/uL 0-0.06 code = 5456922976) LYMPH x10^3 (test code 2.10 10*3/uL 1.32-3.29 = 731-0) MONO x10^3 (test code 0.61 10*3/uL 0.33-0.92 = 742-7) EOS x10^3 (test code = 0.14 10*3/uL 0.03-0.39 711-2) BASO x10^3 (test code 0.03 10*3/uL 0.01-0.07 = 704-7) Lab Interpretation Abnormal (test code = 01795-6) [facility] URINALYSIS W/O SPECIFIC [id number] 16:37:00 Test Item Value Reference Range Interpretation Comments POCT PH U (test code = 3254) N/A 5-8 POCT U LEUK EST (test code = N/A Negative - Negative 3263) POCT U NIT (test code = 3262) N/A Negative - Negative POCT U PROT (test code = 3259) Negative Negative - Negative POCT U GLU (test code = 3256) Negative Negative - Negative POCT U KETONE (test code = 3258) N/A Negative - Negative POCT U BLD (test code = 3257) N/A Negative - Negative [facility] URINALYSIS W/O SPECIFIC [id number] 18:39:00 Test Item Value Reference Range Interpretation Comments POCT PH U (test code = 3254) n/a 5-8 POCT U LEUK EST (test code = 3263) n/a Negative - Negative POCT U NIT (test code = 3262) n/a Negative - Negative POCT U PROT (test code = 3259) neg Negative - Negative POCT U GLU (test code = 3256) neg Negative - Negative POCT U KETONE (test code = 3258) n/a Negative - Negative POCT U BLD (test code = 3257) n/a Negative - Negative [facility] W/O SPECIFIC [id number] 13:45:00 Test Item Value Reference Range Interpretation Comments POCT PH U (test code = 3254) n/a 5-8 POCT U LEUK EST (test code = 3263) n/a Negative - Negative POCT U NIT (test code = 3262) n/a Negative - Negative POCT U PROT (test code = 3259) neg Negative - Negative POCT U GLU (test code = 3256) neg Negative - Negative POCT U KETONE (test code = 3258) n/a Negative - Negative POCT U BLD (test code = 3257) n/a Negative - Negative Lab Interpretation (test code = Normal 55548-9) [facility] SPECIFIC [id number] 18:11:00 Test Item Value Reference Range Interpretation Comments POCT U SP GRAV (test 1.015 mg/dl 1.005-1.025 code = 3255) POCT PH U (test code = 7 mg/dl 5-8 3254) POCT U LEUK EST (test neg Negative - code = 3263) Negative POCT U NIT (test code neg Negative - = 3262) Negative POCT U PROT (test code neg Negative - = 3259) Negative POCT U GLU (test code norm Negative - = 3256) Negative POCT U KETONE (test neg Negative - code = 3258) Negative POCT U UROBILI (test norm 0.2-1 code = 3260) POCT U BILI (test code neg Negative - = 3261) Negative POCT U BLD (test code neg Negative - = 3257) Negative POCT U COLOR (test yellow code = 3266) POCT U APPEAR (test clear code = 3267) MARIA GUADALUPE (test code = MARIA GUADALUPE) accurate development and interpretation of all internal controls Lab Interpretation Normal (test code = 86866-0) [facility]<14 WEEKS US [id number] 23:17:47Limited USG for dating and viability: ?Single live IUP measured 7 1/7 weeks. ?Will date by this USG unless clinically indicated otherwise Chemo Yates MD ?01/11/2020 ?6:17 PMUnNorthwest Texas Healthcare SystemUS OB TRANSVAGINAL 2019-12-24 09:55:03USG for dating as unsure LMP: ?NO gestational sac noted in the uterus. ?Right ovary measured 2.61 x 1.46 cm and left ovary measured 3.16 x 1.18 cm. ?Small amount of free fluid in the cul-de-sac, appeared physiologic. Chemo Yates MD ?12/24/2019 ?3:54 AMUnNorthwest Texas Healthcare SystemHCG, QUANTITATIVE, [id number] 22:50:00 Test Item Value Reference Range Interpretation Comments BETA HCG (test See_Comment [Automated m essage] code = The system dot429 h [id number]) generated this result transmit maye reference range : Non- fe male and male patien ts: <5 mIU/mL. The reference range was not used to interpret this result as normal/abnormal . MARIA GUADALUPE (test code Gestational Age ? ? = MARIA GUADALUPE) ?Range (mIU/mL) 1-10 ?Weeks ?61-09172571-01 Weeks ?72537-00083188-55 Weeks ?5191-70945547-94 Weeks ?7640-196117 Biotin has been reported to cause a negative bias, interpret results relative to patient's use of biotin. [facility] CenterPO[facility] URINAL[facility] W/O SPECIFIC [id number] 15:58:00 Test Item Value Reference Range Interpretation Comments POCT PH U (test code = 3254) n/a 5-8 POCT U LEUK EST (test code = 3263) n/a Negative - Negative POCT U NIT (test code = 3262) n/a Negative - Negative POCT U PROT (test code = 3259) neg Negative - Negative POCT U GLU (test code = 3256) neg Negative - Negative POCT U KETONE (test code = 3258) n/a Negative - Negative POCT U BLD (test code = 3257) n/a Negative - Negative Lab Interpretation (test code = Normal 41066-0) [facility] CenterPOCT [id number] 15:58:00 Test Item Value Reference Range Interpretation Comments POCT PREG (test code = 1605) Positive On board controls acceptable with C Yes Line (test code = 3574) POCT PREG LOT # (test code = 3575) POCT PREG TEST DATE (test code = 3576) Lab Interpretation (test code = Normal 17312-2) [facility]
[2022-08-12] MEDS ORDERED: MORPHINE 4 MG/ML SYR ONE (13:26)
[2022-08-12] MEDS ORDERED: NA CHLORIDE 0.9% 1,000 ML ONE (13:26)
[2022-08-12] MEDS ORDERED: ONDANSETRON 4 MG/2 ML VIAL ONE (13:26)
[2022-08-12 13:39] LABS: Absolute Lymphocytes (CBC) 1.6 K/uL (0.7-4.9); Hematocrit 36.4 % (36.0-45.0); Lymphocytes % 18.4 % (15.3-44.8); MCV 79.9 fL (80-100); MPV 7.5 fL (7.6-11.3); RBC Red Blood Cell Count 4.56 M/uL (3.86-4.86)
[2022-08-12 14:00] LABS: Albumin 3.8 g/dL (3.4-5.0); Bilirubin Total 0.5 mg/dL (0.2-1.0); Potassium 3.1 mmol/L (3.5-5.1); Protein, Total 7.9 g/dL (6.4-8.2)
[2022-08-12 14:15] LABS: Urine Blood 3+ (Negative); Urine Glucose Negative (Negative); Urine Protein 2+ (Negative); Urine Specific Gravity >=1.030 (1.005-1.030); Urine pH 5.5 (5.0-7.0)
[2022-08-12 14:21] LABS: Urine Mucus 4+ /HPF (None Seen); Urine RBC >50 /HPF (None Seen)
[2022-08-12] MEDS ORDERED: POTASSIUM CL SA 10 MEQ TAB PO ONE (14:39)
[2022-08-12] MEDS ORDERED: KETOROLAC 30 MG/ML INJ ONE (14:40)
[2022-08-12] MEDS ORDERED: HYDROMORPHONE HCL 1 MG/ML INJ ONE (14:40)
--- NOTE | 2022-08-12 14:42 | RAD REPORT ---
EXAM DESCRIPTION: CTAbdomen Pelvis W Contrast - 08/12/2022 2:29 pm CLINICAL HISTORY: abd pain/flank pain COMPARISON: Abdomen Pelvis W Contrast dated 06/10/2016; Abdomen Pelvis W Contrast dated 06/06/2016 TECHNIQUE: CT of the abdomen and pelvis was performed IV contrast. All CT scans are performed using dose optimization technique as appropriate and may include automated exposure control or mA/KV adjustment according to patient size. FINDINGS: Lower chest: No acute abnormality. Liver: No acute abnormality or suspicious lesions. Biliary: No biliary ductal dilatation. Cholecystectomy. Stomach: No significant focal abnormality. Duodenum: No significant focal abnormality. Pancreas: No significant abnormality. Spleen: No significant abnormality. Adrenal: No suspicious lesions. Kidney/ureter: Moderate right-sided hydroureteronephrosis secondary to a 5 mm stone in the right dist al ureter. Retroperitoneum: No retroperitoneal adenopathy. Vascular: No aneurysm. Bowel: No significant focal abnormality. Peritoneum: Small volume of pelvic free fluid. Bladder: Grossly unremarkable. Reproductive: No adnexal masses. Bones: No acute fracture. Other: n/a IMPRESSION: Moderate right-sided hydroureteronephrosis secondary to a 5 mm stone in the right distal ureter.
[2022-08-12] MEDS ORDERED: MAGNESIUM SULFATE 1 gm IVPB 1 GM/100 ML BAG IV ONE (14:57)
[2022-08-12] MEDS ORDERED: TAMSULOSIN 0.4 MG SR CAP ONE (14:57)
--- NOTE | 2022-08-12 16:28 | ER ---
Nurse's Notes [facility] Name: Viki Bright Age: 22 yrs Sex: Female : 2000 Arrival Date: 08/12/2022 Time: 13:04 Bed 4 Private MD: Diagnosis: Calculus of ureter Presentation: 08/12 13:20 Chief complaint: Patient states: right sided abdominal pain started this morning. Pt mb9 says it travels to her right side of back. Coronavirus screen: At this time, the client does not indicate any symptoms associated with coronavirus-19. Ebola Screen: No symptoms or risks identified at this time. 13:20 Initial Sepsis Screen: Does the patient meet any 2 criteria? No. Patient's initial mb9 sepsis screen is negative. Does the patient have a suspected source of infection? No. Patient's initial sepsis screen is negative. Risk Assessment: Do you want to hurt yourself or someone else? Patient reports no desire to harm self or others. Onset of symptoms was August 12, 2022. 13:20 Acuity: KELSIE 3 mb9 13:20 Method Of Arrival: Ambulatory 9 Triage Assessment: 13:20 General: Appears distressed, uncomfortable, Behavior is cooperative, appropriate for mb9 age, anxious. Pain: Complains of pain in right lower quadrant and right upper quadrant Pain radiates to right flank Quality of pain is described as sharp, Pain began suddenly, this morning. EENT: No signs and/or symptoms were reported regarding the EENT system. Neuro: Level of Consciousness is awake, alert, obeys commands, Oriented to person, place, time, situation, Appropriate for age Gait is steady, Pupils are PERRLA. Cardiovascular: Heart tones S1 S2 present Rhythm is regular. Respiratory: Airway is patent Respiratory effort is even, unlabored, Respiratory pattern is regular, symmetrical, Breath sounds are clear bilaterally. GI: Abdomen is flat, Bowel sounds present X 4 quads. Abd is soft Abdomen is tender to palpation in right upper quadrant and right lower quadrant Reports diarrhea, nausea. 13:20 : Denies burning with urination. Derm: Skin is pink, warm \T\ dry. Musculoskeletal: mb9 Range of motion: intact in all extremities. RELIEF MANAGER: 13:20 LMP 08/12/2022 9 Historical: - Allergies: 13:20 No Known Allergies; mb9 - Home Meds: 13:20 progesterone [Active]; losartan oral [Active]; mb9 - PMHx: 13:20 Kidney stones; Ovarian cyst; mb9 - PSHx: 13:20 Cholecystectomy; mb9 - Immunization history:: Client reports having NOT received the Covid vaccine. - Social history:: Smoking status: Patient denies any tobacco usage or history of. Patient/guardian denies using alcohol. Screenin:30 Abuse screen: Denies threats or abuse. Nutritional screening: No deficits noted. mb9 Tuberculosis screening: No symptoms or risk factors identified. Fall Risk None identified. Assessment: 13:30 General: Appears uncomfortable, Behavior is cooperative, appropriate for age, anxious. mb9 Pain: Complains of pain in right lower quadrant and right upper quadrant. Pain: Pain currently is 10 out of 10 on a pain scale. Pain began suddenly. Neuro: Level of Consciousness is awake, alert, obeys commands, Oriented to person, place, time, situation, Appropriate for age Pupils are PERRLA. Cardiovascular: Heart tones S1 S2 present Rhythm is regular. Respiratory: Airway is patent Respiratory effort is even, unlabored, Respiratory pattern is regular, symmetrical, Breath sounds are clear bilaterally. GI: Abdomen is flat, Last BM was August 12, 2022. Bowel sounds present X 4 quads. Abd is soft Abdomen is tender to palpation in right lower quadrant and right upper quadrant Reports diarrhea, nausea. : No signs and/or symptoms were reported regarding the genitourinary system. EENT: No signs and/or symptoms were reported regarding the EENT system. Derm: Skin is pink, warm \T\ dry. Musculoskeletal: Range of motion: intact in all extremities. 14:53 Pain: Complains of pain in right lower quadrant and right upper quadrant Pain currently mb9 is 10 out of 10 on a pain scale. 14:53 Reassessment: pt yelling from being in pain. mb9 15:00 General: Appears uncomfortable, Behavior is cooperative, anxious. Neuro: Level of mb9 Consciousness is awake, alert, obeys commands, Oriented to person, place, time, situation, Appropriate for age. Cardiovascular: Heart tones S1 S2 present Rhythm is regular. Respiratory: Airway is patent Respiratory effort is even, unlabored, Respiratory pattern is regular, symmetrical. Derm: Skin is pink, warm \T\ dry. 15:00 Pain: Complains of pain in right lower quadrant and right upper quadrant Pain currently mb9 is 10 out of 10 on a pain scale. 16:20 Pain: Denies pain. mb9 16:20 Neuro: Level of Consciousness is awake, alert, obeys commands, Oriented to person, mb9 place, time, situation, Appropriate for age. Cardiovascular: Rhythm is regular. Respiratory: Airway is patent Respiratory effort is even, unlabored, Respiratory pattern is regular, symmetrical. Derm: Skin is pink, warm \T\ dry. Vital Signs: 13:20 Temp 97.3; Pulse Ox 100% on R/A; Weight 70.76 kg; Height 5 ft. 3 in. (160.02 cm); Pain mb9 10/10; 13:20 BP 113 / 68; Pulse 85; Resp 18; Pulse Ox 100% on R/A; mb9 14:54 BP 128 / 88; Pulse 92; Resp 16; Pulse Ox 99% ; mb9 15:00 BP 128 / 87; Pulse 103; Resp 18; Pulse Ox 100% ; mb9 16:20 BP 124 / 80; Pulse 85; Resp 16; Pulse Ox 100% ; Pain 0/10; mb9 13:20 Body Mass Index 27.63 (70.76 kg, 160.02 cm) mb9 ED Course: 13:04 Patient arrived in ED. ja2 13:05 [facility] kb 13:05 Hank Rice MD is Attending Physician. kb 13:18 Magdalena Mercer, TAMARA is Primary Nurse. mb9 13:20 Arm band placed on. mb9 13:25 Patient has correct armband on for positive identification. Placed in gown. Bed in low mb9 position. Call light in reach. Side rails up X 1. 13:55 CMP Sent. mb9 13:55 Lipase Sent. mb9 14:08 Triage completed. mb9 14:31 CT Abd/Pelvis - IV Contrast Only In Process Unspecified. EDMS 16:28 Jim Norman MD is Referral Physician. kb 16:44 No provider procedures requiring assistance completed. IV discontinued, intact, mb8 bleeding controlled, No redness/swelling at site. Pressure dressing applied. Administered Medications: 13:25 Drug: NS 0.9% 1000 ml Route: IV; Rate: 1 bolus; Site: left antecubital; mb9 16:49 Follow up: Response: No adverse reaction; IV Status: Completed infusion mb9 13:25 Drug: Zofran (Ondansetron) 4 mg Route: IVP; Site: left antecubital; mb9 16:48 Follow up: Response: No adverse reaction mb9 13:25 Drug: morphine 4 mg Route: IVP; Infused Over: 4 mins; Site: left antecubital; mb9 16:48 Follow up: Response: No adverse reaction mb9 14:53 Drug: Potassium Chloride 40 mEq Route: PO; mb9 16:48 Follow up: Response: No adverse reaction mb9 14:53 Drug: Dilaudid (HYDROmorphone) 1 mg Route: IVP; Site: left antecubital; mb9 16:48 Follow up: Response: No adverse reaction mb9 14:53 Drug: Ketorolac 15 mg Route: IVP; Site: left antecubital; mb9 16:48 Follow up: Response: No adverse reaction mb9 14:53 Drug: Flomax (tamsulosin) 0.4 mg Route: PO; mb9 16:47 Follow up: Response: No adverse reaction mb9 15:09 Drug: Magnesium Sulfate 1 grams Route: IVPB; Infused Over: 1 hrs; Site: left mb9 antecubital; 16:09 Follow up: Response: No adverse reaction; IV Status: Completed infusion mb9 Medication: 13:20 VIS not applicable for this client. mb9 Outcome: 16:28 Discharge ordered by . kb 16:44 Discharged to home ambulatory, with family. mb8 16:44 Condition: stable 16:44 Discharge instructions given to patient, Instructed on discharge instructions, follow up and referral plans. medication usage, Demonstrated understanding of instructions, follow-up care, medications, Prescriptions given X 4. 16:45 Patient left the ED. mb8 Signatures: Dispatcher [employer] EDAshlee Farris, TRINI VALDERRAMAP-Arabella Chavez Michael RN RN mb8 Magdalena Mercer RN RN mb9 Corrections: (The following items were deleted from the chart) 14:11 14:08 General: Appears distressed, uncomfortable, Behavior is cooperative, appropriate mb9 for age, anxious, mb9 14:11 14:08 Pain: Complains of pain in right lower quadrant and right upper quadrant Pain mb9 radiates to right flank Quality of pain is described as sharp, Pain began suddenly, this morning mb9 : 14: EENT: No signs and/or symptoms were reported regarding the EENT system. mb9 mb9 : 14: Neuro: Level of Consciousness is awake, alert, obeys commands, Oriented to mb9 person, place, time, situation, Appropriate for age Gait is steady, Pupils are PERRLA, mb9 :09 10: Cardiovascular: Heart tones S1 S2 present Rhythm is regular mb9 mb9 :09 10: Respiratory: Airway is patent Respiratory effort is even, unlabored, Respiratory mb9 pattern is regular, symmetrical, Breath sounds are clear bilaterally. mb9 : 14: GI: Abdomen is flat, Bowel sounds present X 4 quads. Abd is soft Abdomen is mb9 tender to palpation in right upper quadrant and right lower quadrant Reports diarrhea, nausea, mb9
--- NOTE | 2022-08-12 16:28 | EDPHYS ---
Physician Documentation [facility] Name: Viki Bright Age: 22 yrs Sex: Female : 2000 Arrival Date: 08/12/2022 Time: 13:04 Bed 4 Private MD: ED Physician Hank Rice HPI: 08/12 13:55 This 22 yrs old Female presents to ER via Unassigned with complaints of Abdominal Pain, kb Flank Pain. 13:55 The patient has not experienced similar symptoms in the past. The patient has not kb recently seen a physician. 13:56 The patient presents with abdominal pain right lower quadrant. Onset: The kb symptoms/episode began/occurred yesterday. The symptoms do not radiate. Associated signs and symptoms: Pertinent positives: diarrhea, nausea, flank pain. The symptoms are described as constant. Modifying factors: The symptoms are alleviated by nothing, the symptoms are aggravated by pressure. Severity of pain: At its worst the pain was moderate in the emergency department the pain is unchanged. Pt reports RLQ and right flank pain with nausea and diarrhea. Denies fever. 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 - Social history:: Smoking status: Patient denies any tobacco usage or history of. Patient/guardian denies using alcohol. ROS: 13:54 Constitutional: Negative for fever, chills, and weight loss. kb 13:54 Abdomen/GI: Positive for abdominal pain, nausea, diarrhea. 13:54 Back: Positive for flank pain, on the right. 13:54 All other systems are negative. Exam: 13:54 Constitutional: This is a well developed, well nourished patient who is awake, alert, kb and in no acute distress. Head/Face: Normocephalic, atraumatic. ENT: Moist Mucous membranes Cardiovascular: Regular rate and rhythm with a normal S1 and S2. No gallops, murmurs, or rubs. No pulse deficits. Respiratory: Respirations even and unlabored. No increased work of breathing. Talking in full sentences Skin: Warm, dry with normal turgor. Normal color. MS/ Extremity: Pulses equal, no cyanosis. Neurovascular intact. Full, normal range of motion. Neuro: Awake and alert, GCS 15, oriented to person, place, time, and situation. Moves all extremities. Normal gait. Psych: Awake, alert, with orientation to person, place and time. Behavior, mood, and affect are within normal limits. 13:54 Abdomen/GI: Inspection: abdomen appears normal, Bowel sounds: normal, Palpation: soft, in all quadrants, mild abdominal tenderness, in the left lower quadrant, moderate abdominal tenderness, in the right upper quadrant and right lower quadrant. 13:54 Back: CVA tenderness, that is mild, that is moderate, is noted on the right. Vital Signs: 13:20 Temp 97.3; Pulse Ox 100% on R/A; Weight 70.76 kg; Height 5 ft. 3 in. (160.02 cm); Pain mb9 10/10; 13:20 BP 113 / 68; Pulse 85; Resp 18; Pulse Ox 100% on R/A; mb9 14:54 BP 128 / 88; Pulse 92; Resp 16; Pulse Ox 99% ; mb9 15:00 BP 128 / 87; Pulse 103; Resp 18; Pulse Ox 100% ; mb9 16:20 BP 124 / 80; Pulse 85; Resp 16; Pulse Ox 100% ; Pain 0/10; mb9 13:20 Body Mass Index 27.63 (70.76 kg, 160.02 cm) mb9 MDM: 13:15 Patient medically screened. [facility] 13:54 Data reviewed: vital signs, nurses notes. Data interpreted: Pulse oximetry: on room air kb is 100 %. Interpretation: normal. 16:27 Counseling: I had a detailed discussion with the patient and/or guardian regarding: the kb historical points, exam findings, and any diagnostic results supporting the discharge/admit diagnosis, lab results, radiology results, the need for outpatient follow up, a family practitioner, to return to the emergency department if symptoms worsen or persist or if there are any questions or concerns that arise at home. ED course: Pt comfortable after treatment. . 08/12 13:21 Order name: CBC with Diff; Complete Time: 13:53 kb 08/12 13:21 Order name: CMP; Complete Time: 14:03 kb 08/12 13:21 Order name: Lipase; Complete Time: 14:03 kb 08/12 13:21 Order name: Urine Microscopic Only; Complete Time: 14:28 kb 08/12 14:15 Order name: Urine Dipstick-Ancillary; Complete Time: 14:28 EDMS 08/12 13:21 Order name: CT Abd/Pelvis - IV Contrast Only; Complete Time: 14:47 kb 08/12 13:21 Order name: IV Saline Lock; Complete Time: 13:55 kb 08/12 13:21 Order name: Labs collected and sent; Complete Time: 13:55 kb 08/12 13:21 Order name: Urine Dipstick-Ancillary (obtain specimen); Complete Time: 14:15 kb 08/12 13:21 Order name: Urine Test (obtain specimen); Complete Time: 14:15 kb Administered Medications: 13:25 Drug: NS 0.9% 1000 ml Route: IV; Rate: 1 bolus; Site: left antecubital; mb9 16:49 Follow up: Response: No adverse reaction; IV Status: Completed infusion mb9 13:25 Drug: Zofran (Ondansetron) 4 mg Route: IVP; Site: left antecubital; mb9 16:48 Follow up: Response: No adverse reaction mb9 13:25 Drug: morphine 4 mg Route: IVP; Infused Over: 4 mins; Site: left antecubital; mb9 16:48 Follow up: Response: No adverse reaction mb9 14:53 Drug: Potassium Chloride 40 mEq Route: PO; mb9 16:48 Follow up: Response: No adverse reaction mb9 14:53 Drug: Dilaudid (HYDROmorphone) 1 mg Route: IVP; Site: left antecubital; mb9 16:48 Follow up: Response: No adverse reaction mb9 14:53 Drug: Ketorolac 15 mg Route: IVP; Site: left antecubital; mb9 16:48 Follow up: Response: No adverse reaction mb9 14:53 Drug: Flomax (tamsulosin) 0.4 mg Route: PO; mb9 16:47 Follow up: Response: No adverse reaction mb9 15:09 Drug: Magnesium Sulfate 1 grams Route: IVPB; Infused Over: 1 hrs; Site: left mb9 antecubital; 16:09 Follow up: Response: No adverse reaction; IV Status: Completed infusion mb9 Disposition Summary: 08/12/22 16:28 Discharge Ordered Location: Home kb Condition: Stable kb Diagnosis - Calculus of ureter kb Followup: kb - With: Emergency Department - When: As needed - Reason: Worsening of condition Followup: kb - With: Private Physician - When: 2 - 3 days - Reason: Recheck today's complaints, Continuance of care, Re-evaluation by your physician Followup: kb - With: Jim Norman MD - When: 2 - 3 days - Reason: Recheck today's complaints Discharge Instructions: - Discharge Summary Sheet kb - Kidney Stones, [id number] kb - Dietary Guidelines to Help Prevent Kidney Stones kb Forms: - Medication Reconciliation Form kb - Thank You Letter kb - Antibiotic Education kb - Prescription Opioid Use kb - Work release form mb8 Prescriptions: - Augmentin 875-125 mg Oral Tablet - take 1 tablet by ORAL route every 12 hours for 10 days; 20 tablet; Refills: 0, kb Product Selection Permitted - Zofran 4 mg Oral Tablet - take 1 tablet by ORAL route every 6 hours As needed; 20 tablet; Refills: 0, kb Product Selection Permitted - Flomax 0.4 mg Oral capsule - take 1 capsule by ORAL route once daily 1/2 hour following the same meal each kb day; 10 capsule; Refills: 0, Product Selection Permitted - Diclofenac Sodium 75 mg Oral tablet,delayed release (DR/EC) - take 1 tablet by ORAL route 2 times per day As needed; 30 tablet; Refills: 0, kb Product Selection Permitted Signatures: Dispatcher [employer] Ashlee Talavera, FOUNT[employer]EN NIBS INSPECTOR-C F[employer]BS INSPECTOR-Hank North MD MD cha Breneman, Mary, RN RN mb9
[2022-08-12 16:53] VITALS: TEMP 97.3
[2022-08-12 16:54] VITALS: BP 128/88; O2SAT 99
== END 2022-08-12 16:45 | disposition home or self-care (01) ==
LOC: ER 12:59
DX: N20.1 Calculus of ureter (principal); Z87.442 Personal history of urinary calculi
CPT/HCPCS: 96365; 96361; 85025; 36415; 83690; 80053; 74177; 96375; 99284; Q9967; J3475; J1170; J7030; J2405; 81003; 81015

== ENCOUNTER 2023-03-11 09:16 | Emergency (ER) | payer OTHER ==
--- OUTSIDE RECORDS SUMMARY | 2023-03-11 09:22 | XMS REPORT | Continuity of Care Document ---
:2000 Author Organization [facility] t Address [address] [place] [address] [place] [id number] Care Team Providers Name Role Phone PCP, PATIENT DOES NOT HAVE A Primary Care Physician Unavaila BO Correa Attending Clinician Unavailable RADIOLOGY Attending Clinician Unavailable Radiology Attending Clinician Unavailable Lab, [facility] I Attending Clinician Unavailable EbAylin Connor Attending Clinician AYLIN FIGUEROA Attending Clinician Unavailable SOPHIA HEARD Attending Clinician Unavailable Nurse, [facility] Attending Clinician Unavailable Sophia Heard PA-C Attending Clinician Chemo Yates MD Attending Clinician Radha Monroy Attending Clinician Doctor Unassigned, [place] Attending Clinician Unavailable CHEMO YATES Attending Clinician [...] Effective Date Expiration Date Zach ESTES POS [id number] 2018 II 00:00:00 [place] [facility] [id number] 2019 HEALTH 00:00:00 [place] OF [place] [id number] 2019 00:00:00 Problems Condition Condition Condition Status Onset Resolution Last Treating Co mments Source Name Details Category Date Date Treatment Clinician Date 39 weeks 39 weeks Disease Active 2019-10 Unive rs gestation gestation 0-26 ity of of of 00:00: [place] [address] [facility] Anemia, Anemia, Disease Active 2020 Univers antepartum antepartum 0-26 it y of , third , third 00:00: [place] trimester trimester [address] [facility] Liveborn Liveborn Disease Active 2019-10 Unive rs , of , of 0-26 [place] y of [place] , , [place] d[place] born in born in [facility] hospital by vaginal by vaginal delivery delivery Vacuum-ass Vacuum-ass Disease Active 2019-10 U nivers isted isted 0-26 ity of vaginal vaginal 00:00: [place] delivery delivery 00 [facility] Obesity Obesity Disease Active 2020- Univers (BMI (BMI 8-21 ity of 30-39.9) 30-39.9) 00:00: [address] Supervisio Supervisio Disease Active 2020-0 U nivers n of n of 3-16 ity of high-risk high-risk [place] [facility] with with Branch history of history [...] 2-27 it y of anatomic anatomic 00:00: [place] location location 00 [facility] Allergies, Adverse Reactions, Alerts Allergy Allergy Status Severity Reaction(s) Onset Inactive Treating Comm ents Source Name Type Date Date Clinician NO KNOWN Drug Active Univers ALLERGIE Class ity of S [facility] Social History Social Habit Start Date Stop Date Quantity Comments Source ASSERTION 2019-12-06 [facility] 00:00:00 [facility] Exposure to Yes University of SARS-CoV-2 [facility] (event) [place] Alcohol intake 2020-09-15 2020-09-[address] [facility] 00:00:00 00:00:00 (finding) [facility] Tobacco use and 2019-12-23 2019-12-23 Smokeless tobacco Un iversity of exposure 00:00:00 00:00:00 non-user [facility] Sex Assigned At 2000 2000 Universit y of 00:00:00 00:00:00 [facility] Smoking Status Start Date Stop Date Source Never smoked tobacco [facility] Medications Ordered Filled Start Stop Current Ordering Indication Dosage Frequency Signature Comments Components Source Medication Medication Date Date Medication? Clinician (SIG) Name Name medroxyPROG 2020- No [id number] 150mg Univers ESTERone 02-16 ity of (DEPO-PROVE 16:45: 15:20 [place] RA) syringe 00 :00 Medical 150 mg Branch medroxyPROG 2020- No [id number] 150mg 150 mg, Univers ESTERone 02-16 Intramuscu [...] mg 08/23/20 at 1015, Routine 2019-10 Yes [id number] 1{tbl} Take 1 Univers vitamin 0-27 [id number] tablet by ity o f w/FA tablet 00:00: mouth [place] 00 daily. Medical Branch docusate 2019-10 Yes [id number] 240mg Take 1 Univers calcium 240 0-27 [id number] capsule by ity of mg capsule 00:00: mouth once [place] 00 daily as Medical needed for Branch Constipati on. ferrous 2019-10 Yes [id number] 325mg Take 1 Univers sulfate 325 0-27 [id number] tablet by i ty of mg (65 mg 00:00: mouth 2 [place] iron) 00 (two) Medical tablet times Branch daily. ibuprofen 2019-10 Yes [id number] 600mg Take 1 Univers 600 mg 0-27 [id number] tablet by ity of tablet 00:00: mouth [place] 00 every 6 Medical (six) Branch hours as needed for Pain (scale 1-3) or Pain (scale 4-6) (Pain). Take with food or milk. 2019-10 Yes [id number] 1{tbl} Take 1 Univers vitamin 0-27 [id number] tablet by ity o f w/FA tablet 00:00: mouth [place] 00 daily. Medical Branch docusate 2019-10 Yes [id number] 240mg Take 1 Univers calcium 240 0-27 [id number] capsule by ity of mg capsule 00:00: mouth once [place] 00 daily as Medical needed for Branch Constipati on. ferrous 2019-10 Yes [id number] 325mg Take 1 Univers sulfate 325 0-27 [id number] tablet by i ty of mg (65 mg 00:00: mouth 2 [place] iron) 00 (two) Medical tablet times Branch daily. ibuprofen 2019-10 Yes [id number] 600mg Take 1 Univers 600 mg 0-27 [id number] tablet by ity of tablet 00:00: mouth [place] 00 every 6 Medical (six) Branch hours as needed for Pain (scale 1-3) or Pain (scale 4-6) (Pain). Take with food or milk. 2019-10 Yes [id number] 1{tbl} Take 1 Univers vitamin 0-27 [id number] tablet by ity o f w/FA tablet 00:00: mouth [place] 00 daily. Medical Branch docusate 2019-10 Yes [id number] 240mg Take 1 Univers calcium 240 0-27 [id number] capsule by ity of mg capsule 00:00: mouth once [place] 00 daily as Medical needed for Branch Constipati on. ferrous 2019-10 Yes [id number] 325mg Take 1 Univers sulfate 325 0-27 [id number] tablet by i ty of mg (65 mg 00:00: mouth 2 [place] iron) 00 (two) Medical tablet times Branch daily. ibuprofen 2019-10 Yes [id number] 600mg Take 1 Univers 600 mg 0-27 [id number] tablet by ity of tablet 00:00: mouth [place] 00 every 6 Medical (six) Branch hours as needed for Pain (scale 1-3) or Pain (scale 4-6) (Pain). Take with food or milk. 2019-10 Yes [id number] 1{tbl} Take 1 Univers vitamin 0-27 [id number] tablet by ity o f w/FA tablet 00:00: mouth [place] 00 daily. Medical Branch docusate 2019-10 Yes [id number] 240mg Take 1 Univers calcium 240 0-27 [id number] capsule by ity of mg capsule 00:00: mouth once [place] 00 daily as Medical needed for Branch Constipati on. ferrous 2019-10 Yes [id number] 325mg Take 1 Univers sulfate 325 0-27 [id number] tablet by i ty of mg (65 mg 00:00: mouth 2 [place] iron) 00 (two) Medical tablet times Branch daily. ibuprofen 2019-10 Yes [id number] 600mg Take 1 Univers 600 mg 0-27 [id number] tablet by ity of tablet 00:00: mouth [place] 00 every 6 Medical (six) Branch hours as needed for Pain (scale 1-3) or Pain (scale 4-6) (Pain). Take with food or milk. 2019-10 Yes [id number] 1{tbl} Take 1 Univers vitamin 0-27 [id number] tablet by ity o f w/FA tablet 00:00: mouth [place] 00 daily. Medical Branch docusate 2019-10 Yes [id number] 240mg Take 1 Univers calcium 240 0-27 [id number] capsule by ity of mg capsule 00:00: mouth once [place] 00 daily as Medical needed for Branch Constipati on. ferrous 2019-10 Yes [id number] 325mg Take 1 Univers sulfate 325 0-27 [id number] tablet by i ty of mg (65 mg 00:00: mouth 2 [place] iron) 00 (two) Medical tablet times Branch daily. ibuprofen 2019-10 Yes [id number] 600mg Take 1 Univers 600 mg 0-27 [id number] tablet by ity of tablet 00:00: mouth [place] 00 every 6 Medical (six) Branch hours as needed for Pain (scale 1-3) or Pain (scale 4-6) (Pain). Take with food or milk. 2019-10 Yes [id number] 1{tbl} Take 1 Univers vitamin 0-27 [id number] tablet by ity o f w/FA tablet 00:00: mouth [place] 00 daily. Medical Branch docusate 2019-10 Yes [id number] 240mg Take 1 Univers calcium 240 0-27 [id number] capsule by ity of mg capsule 00:00: mouth once [place] 00 daily as Medical needed for Branch Constipati on. ferrous 2019-10 Yes [id number] 325mg Take 1 Univers sulfate 325 0-27 [id number] tablet by i ty of mg (65 mg 00:00: mouth 2 [place] iron) 00 (two) Medical tablet times Branch daily. ibuprofen 2019-10 Yes [id number] 600mg Take 1 Univers 600 mg 0-27 [id number] tablet by ity of tablet 00:00: mouth [place] 00 every 6 Medical (six) Branch hours as needed for Pain (scale 1-3) or Pain (scale 4-6) (Pain). Take with food or milk. ferrous 2019-10 Yes [id number] 325mg Take 1 Univers sulfate 325 0-27 [id number] tablet by i ty of mg (65 mg 00:00: mouth 2 [place] iron) 00 (two) Medical tablet times Branch daily. ferrous 2019-10 Yes [id number] 325mg Take 1 Univers sulfate 325 0-27 [id number] tablet by i ty of mg (65 mg 00:00: mouth 2 [place] iron) 00 (two) Medical tablet times Branch daily. ferrous 2019-10 Yes [id number] 325mg Take 1 Univers sulfate 325 0-27 [id number] tablet by i ty of mg (65 mg 00:00: mouth 2 [place] iron) 00 (two) Medical tablet times Branch daily. 2019-10- No [id number] 1{tbl} Take 1 Univers vitamin 0-27 04-22 [id number] tablet by ity of w/FA tablet 00:00: 00:[place] mouth [place] :00 daily. Medical Branch docusate 2019-10- No [id number] 240mg Take 1 Univers calcium 240 02-16 [id number] capsule by ity of mg capsule 00:00: 00:00 mouth once [place] 00 :00 daily as Medical needed for Branch Constipati on. ibuprofen 2019-10- No [id number] 600mg Take 1 Univers 600 mg 02-16 [id number] tablet by ity o f tablet 00:00: [...] Q6HPRN, [place] mg 18 Starting Medical [facility] Branch 08/22/20 at 1739, Until Discontinu ed, Routine, Pain (scale 4-6) acetaminoph 2019-10 Yes 650mg 650 mg, Un maxine en 0-26 Oral, ity of (TYLENOL) 22:39: Q6HPRN, [place] tablet 650 18 Starting Medic al mg [facility] 08/22/20 at 1739, Until Discontinu ed, Routine, Pain (scale 1-3) diphenhydrA 2019-10 Yes 25mg 25 mg, Univ ers MINE 0-26 Oral, ity of (BENADRYL) 22:39: Q6HPRN, [place] tablet 25 18 Starting Medica l mg [facility] 08/22/20 at 1739, Until Discontinu ed, Routine, Sleep, Itching docusate 2019-10 Yes 240mg 240 mg, Unive rs calcium 0-26 Oral, ity of (SURFAK) 22:39: QDAILYPRN, [place] capsule 240 18 Starting Medi ron mg [facility] 08/22/20 at 1739, Until Discontinu ed, Routine, [...] of 40 Units in 22:30: 20:43 Infusion, [place] lactated 00 :00 ONCE, 1 Medical ringers dose, [facility] 1,000 mL IV 08/22/20 infusion at 1730, Routine oxytocin 2019-10 2020- No 10U 10 Units, Uni vers (PITOCIN) 0-26 10-26 Intramuscu ity of injection 20:45: 20:39 lar, ONCE, [place] 10 Units 00 :00 1 dose, Medical [facility] 08/22/20 at 1545, Routine D5W-LR IV 2019-10 2020- No 1000mL at 125 Uni vers infusion 0-26 10-26 mL/hr, IV ity o f 1,000 mL 09:15: 22:39 Infusion, [place] 00 :38 CONTINUOUS Medical , Starting Branch [facility] 08/22/20 at 0415, Until Sat08/22/20 at 1739, Routine FENTanyl PF 2019-10 2020- No 100ug 100 mcg, Univers (SUBLIMAZE 0-26 10-26 Slow IV ity o f (PF)) 09:07: 22:39 Push, [place] injection 32 :38 Q1HPRN, Medical 100 mcg Starting Branch [facility] 08/22/20 at 0407, Until Sat08/22/20 at 1739, Routine, contractio n pain without an epidural and SVE < 8 cm and Cat I strip LR 1000 mL 2019-10 2020- No 2mU/min at 6-120 Univers + oxytocin 0-26 10-26 mL/hr, IV ity of 20 units IV 09:07: 22:39 Infusion, [place] Solution 32 :38 TITRATE, Medical Starting Branch [facility] 08/22/20 at 0407, Until Sat08/22/20 at 173, FARHEEN lactated 2019-10 2020- No 500mL at 999 Unive rs ringers IV 0-26 10-26 mL/hr, 500 it y of infusion 09:07: 22:39 mL, IV [place] 500 mL 32 :38 Infusion, Medical PRN - SEE Branch INSTRUCTIO NS, Starting Sat08/22/20 at 0407, Until Sat08/22/20 at 1739, Routine famotidine 2020-0 Yes [id number] 20mg Take 1 Univers 20 mg 8-24 tablet by ity of tablet 00:00: mouth 2 [place] (two) Medical times [place] daily. famotidine 2020-0 Yes [id number] 20mg Take 1 Univers 20 mg 8-24 tablet by ity of tablet 00:00: mouth 2 [place] (two) Medical times [place] daily. famotidine 2020-0 Yes [id number] 20mg Take 1 Univers 20 mg 8-24 tablet by ity of tablet 00:00: mouth 2 [place] (two) Medical times [place] daily. famotidine 2020-0 Yes [id number] 20mg Take 1 Univers 20 mg 8-24 tablet by ity of tablet 00:00: mouth 2 [place] (two) Medical times Branch daily. famotidine 2020-0 Yes [id number] 20mg Take 1 Univers 20 mg 8-24 tablet by ity of tablet 00:00: mouth [place] (two) Medical times Branch daily. famotidine 2020-0 Yes [id number] 20mg Take 1 Univers 20 mg 8-24 tablet by ity of tablet 00:00: mouth (two) Medical times Branch daily. famotidine 2020-0 Yes [id number] 20mg Take 1 Univers 20 mg 8-24 tablet by ity of tablet 00:00: mouth [place] (two) Medical times Branch daily. famotidine 2020-0 Yes [id number] 20mg Take 1 Univers 20 mg 8-24 tablet by ity of tablet 00:00: mouth [place] (two) Medical times Branch daily. famotidine 2020-0 Yes [id number] 20mg Take 1 Univers 20 mg 8-24 tablet by ity of tablet 00:00: mouth [place] (two) Medical times Branch daily. famotidine 2020-0 Yes [id number] 20mg Take 1 Univers 20 mg 8-24 tablet by ity of tablet 00:00: mouth [place] (two) Medical times Branch daily. famotidine 2020-0 Yes [id number] 20mg Take 1 Univers 20 mg 8-24 tablet by ity of tablet 00:00: [facility] [place] (two) Medical times Branch daily. famotidine 2020-0 Yes [id number] 20mg Take 1 Univers 20 mg 8-24 tablet by ity of tablet 00:00: [facility] [place] (two) Medical times Branch daily. famotidine 2020-0 Yes [id number] 20mg Take 1 Univers 20 mg 8-24 tablet by ity of tablet 00:00: mouth [place] (two) Medical times Branch daily. famotidine 2020-0 Yes [id number] 20mg Take 1 Univers 20 mg 8-24 tablet by ity of tablet 00:00: mouth [place] (two) Medical times Branch daily. famotidine 2020-0 Yes [id number] 20mg Take 1 Univers 20 mg 8-24 tablet by ity of tablet 00:00: mouth [place] (two) Medical times Branch daily. famotidine 2020-0 Yes [id number] 20mg Take 1 Univers 20 mg 8-24 tablet by ity of tablet 00:00: mouth 2 [place] 00 (two) Medical times Branch daily. famotidine 2020-0 2020- No [id number] 20mg Take 1 Univers 20 mg 8-24 10-27 tablet by ity of tablet 00:00: 00:00 mouth 2 [place] 00 :00 (two) Medical times Branch daily. proMETHazin 2020-0 Yes [id number] 12.5mg Take 1 Univers e 12.5 mg 8-07 tablet by ity o f tablet 00:00: mouth [place] 00 every 4 Medical (four) Branch hours as needed for Nausea and Vomiting (N/V). proMETHazin 2020-0 Yes [id number] 12.5mg Take 1 Univers e 12.5 mg 8-07 tablet by ity o f tablet 00:00: mouth [place] 00 every 4 Medical (four) Branch hours as needed for Nausea and Vomiting (N/V). proMETHazin 2020-0 Yes [id number] 12.5mg Take 1 Univers e 12.5 mg 8-07 tablet by ity o f tablet 00:00: mouth [place] 00 every 4 Medical (four) Branch hours as needed for Nausea and Vomiting (N/V). proMETHazin 2020-0 Yes [id number] 12.5mg Take 1 Univers e 12.5 mg 8-07 tablet by ity o f tablet 00:00: mouth [place] 00 every 4 Medical (four) Branch hours as needed for Nausea and Vomiting (N/V). proMETHazin 2020-0 Yes [id number] 12.5mg Take 1 Univers e 12.5 mg 8-07 tablet by ity o f tablet 00:00: mouth [place] 00 every 4 Medical (four) Branch hours as needed for Nausea and Vomiting (N/V). proMETHazin 2020-0 Yes [id number] 12.5mg Take 1 Univers e 12.5 mg 8-07 tablet by ity o f tablet 00:00: mouth [place] 00 every 4 Medical (four) Branch hours as needed for Nausea and Vomiting (N/V). proMETHazin 2020-0 Yes [id number] 12.5mg Take 1 Univers e 12.5 mg 8-07 tablet by ity o f tablet 00:00: mouth [place] 00 every 4 Medical (four) Branch hours as needed for Nausea and Vomiting (N/V). proMETHazin 2020-0 Yes [id number] 12.5mg Take 1 Univers e 12.5 mg 8-07 tablet by ity o f tablet 00:00: mouth [place] 00 every 4 Medical (four) Branch hours as needed for Nausea and Vomiting (N/V). proMETHazin 2020-0 Yes [id number] 12.5mg Take 1 Univers e 12.5 mg 8-07 tablet by ity o f tablet 00:00: mouth [place] 00 every 4 Medical (four) Branch hours as needed for Nausea and Vomiting (N/V). proMETHazin 2020-0 Yes [id number] 12.5mg Take 1 Univers e 12.5 mg 8-07 tablet by ity o f tablet 00:00: mouth [place] 00 every 4 Medical (four) Branch hours as needed for Nausea and Vomiting (N/V). proMETHazin 2020-0 Yes [id number] 12.5mg Take 1 Univers e 12.5 mg 8-07 tablet by ity o f tablet 00:00: mouth [place] 00 every 4 Medical (four) Branch hours as needed for Nausea and Vomiting (N/V). proMETHazin 2020-0 Yes [id number] 12.5mg Take 1 Univers e 12.5 mg 8-07 tablet by ity o f tablet 00:00: mouth [place] 00 every 4 Medical (four) Branch hours as needed for Nausea and Vomiting (N/V). proMETHazin 2020-0 Yes [id number] 12.5mg Take 1 Univers e 12.5 mg 8-07 tablet by ity o f tablet 00:00: mouth [place] 00 every 4 Medical (four) Branch hours as needed for Nausea and Vomiting (N/V). proMETHazin 2020-0 Yes [id number] 12.5mg Take 1 Univers e 12.5 mg 8-07 tablet by ity o f tablet 00:00: mouth [place] 00 every 4 Medical (four) Branch hours as needed for Nausea and Vomiting (N/V). proMETHazin 2020-0 Yes [id number] 12.5mg Take 1 Univers e 12.5 mg 8-07 tablet by ity o f tablet 00:00: mouth [place] 00 every 4 Medical (four) Branch hours as needed for Nausea and Vomiting (N/V). proMETHazin 2020-0 Yes [id number] 12.5mg Take 1 Univers e 12.5 mg 8-07 tablet by ity o f tablet 00:00: mouth [place] 00 every 4 Medical (four) Branch hours as needed for Nausea and Vomiting (N/V). proMETHazin 2020-0 Yes [id number] 12.5mg Take 1 Univers e 12.5 mg 8-07 tablet by ity o f tablet 00:00: mouth [place] 00 every 4 Medical (four) Branch hours as needed for Nausea and Vomiting (N/V). proMETHazin 2020-0 Yes [id number] 12.5mg Take 1 Univers e 12.5 mg 8-07 tablet by ity o f tablet 00:00: mouth [place] 00 every 4 Medical (four) Branch hours as needed for Nausea and Vomiting (N/V). proMETHazin 2020-0 Yes [id number] 12.5mg Take 1 Univers e 12.5 mg 8-07 tablet by ity o f tablet 00:00: mouth [place] 00 every 4 Medical (four) Branch hours as needed for Nausea and Vomiting (N/V). proMETHazin 2020-0 2020- No [id number] 12.5mg Take 1 Univers e 12.5 mg 8-07 10-27 tablet by ity of tablet 00:00: 00:00 mouth [place] 00 :00 every 4 Medical (four) Branch hours as needed for Nausea and Vomiting (N/V). PNV 2020-0 Yes [id number] Take 1 Univer s 102-iron-fo 2-27 TAB-CAP/M2 it y of late 00:00: by mouth [place] 1-dss-dha 00 daily. Medical (VITAFOL Branch FE+, WITH DOCUSATE,) 90 mg iron-1 mg -50 mg-200 mg Cap PNV 2020-0 Yes [id number] Take 1 Univer s 102-iron-fo 2-27 TAB-CAP/M2 it y of late 00:00: by mouth [place] 1-dss-dha 00 daily. Medical (VITAFOL Branch FE+, WITH DOCUSATE,) 90 mg iron-1 mg -50 mg-200 mg Cap PNV 2020-0 Yes [id number] Take 1 Univer s 102-iron-fo 2-27 TAB-CAP/M2 it y of late 00:00: by mouth [place] 1-dss-dha 00 daily. Medical (VITAFOL Branch FE+, WITH DOCUSATE,) 90 mg iron-1 mg -50 mg-200 mg Cap PNV 2020-0 Yes [id number] Take 1 Univer s 102-iron-fo 2-27 TAB-CAP/M2 it y of late 00:00: by mouth [address] 00 daily. Medical (VITAFOL Branch FE+, WITH DOCUSATE,) 90 mg iron-1 mg -50 mg-200 mg Cap PNV 2020-0 Yes [id number] Take 1 Univer s 102-iron-fo 2-27 TAB-CAP/M2 it y of late 00:00: by mouth [address] 00 daily. Medical (VITAFOL Branch FE+, WITH DOCUSATE,) 90 mg iron-1 mg -50 mg-200 mg Cap PNV 2020-0 Yes [id number] Take 1 Univer s 102-iron-fo 2-27 TAB-CAP/M2 it y of late 00:00: by mouth [address] 00 daily. Medical (VITAFOL Branch FE+, WITH DOCUSATE,) 90 mg iron-1 mg -50 mg-200 mg Cap PNV 2020-0 Yes [id number] Take 1 Univer s 102-iron-fo 2-27 TAB-CAP/M2 it y of late 00:00: by mouth [address] daily. Medical (VITAFOL Branch FE+, WITH DOCUSATE,) 90 mg iron-1 mg -50 mg-200 mg Cap PNV 2020-0 Yes [id number] Take 1 Univer s 102-iron-fo 2-27 TAB-CAP/M2 it y of late 00:00: by mouth [address] 00 daily. Medical (VITAFOL Branch FE+, WITH DOCUSATE,) 90 mg iron-1 mg -50 mg-200 mg Cap PNV 2020-0 Yes [id number] Take 1 Univer s 102-iron-fo 2-27 TAB-CAP/M2 it y of late 00:00: by mouth [address] 00 daily. Medical (VITAFOL Branch FE+, WITH DOCUSATE,) 90 mg iron-1 mg -50 mg-200 mg Cap PNV 2020-0 Yes [id number] Take 1 Univer s 102-iron-fo 2-27 TAB-CAP/M2 it y of late 00:00: by mouth [address] 00 daily. Medical (VITAFOL Branch FE+, WITH DOCUSATE,) 90 mg iron-1 mg -50 mg-200 mg Cap PNV 2020-0 Yes [id number] Take 1 Univer s 102-iron-fo 2-27 TAB-CAP/M2 it y of late 00:00: by mouth [address] 00 daily. Medical (VITAFOL Branch FE+, WITH DOCUSATE,) 90 mg iron-1 mg -50 mg-200 mg Cap PNV 2020-0 Yes [id number] Take 1 Univer s 102-iron-fo 2-27 TAB-CAP/M2 it y of late 00:00: by mouth [address] daily. Medical (VITAFOL Branch FE+, WITH DOCUSATE,) 90 mg iron-1 mg -50 mg-200 mg Cap PNV 2020-0 Yes [id number] Take 1 Univer s 102-iron-fo 2-27 TAB-CAP/M2 it y of late 00:00: by mouth [address] daily. Medical (VITAFOL Branch FE+, WITH DOCUSATE,) 90 mg iron-1 mg -50 mg-200 mg Cap PNV 2020-0 Yes [id number] Take 1 Univer s 102-iron-fo 2-27 TAB-CAP/M2 it y of late 00:00: by mouth [address] daily. Medical (VITAFOL Branch FE+, WITH DOCUSATE,) 90 mg iron-1 mg -50 mg-200 mg Cap PNV 2020-0 Yes [id number] Take 1 Univer s 102-iron-fo 2-27 TAB-CAP/M2 it y of late 00:00: by mouth [address] daily. Medical (VITAFOL Branch FE+, WITH DOCUSATE,) 90 mg iron-1 mg -50 mg-200 mg Cap PNV 2020-0 Yes [id number] Take 1 Univer s 102-iron-fo 2-27 TAB-CAP/M2 it y of late 00:00: by mouth [address] 00 daily. Medical (VITAFOL Branch FE+, WITH DOCUSATE,) 90 mg iron-1 mg -50 mg-200 mg Cap PNV 2020-0 Yes [id number] Take 1 Univer s 102-iron-fo 2-27 TAB-CAP/M2 it y of late 00:00: by mouth [place] [address]-dss-formerly [facility] 00 daily. Medical (VITAFOL Branch FE+, WITH DOCUSATE,) 90 mg iron-1 mg -50 mg-200 mg Cap PNV 2020-0 Yes [id number] Take 1 Univer s 102-iron-fo 2-27 TAB-CAP/M2 it y of late 00:00: by mouth [place] [address]-dss-dha 00 daily. Medical (VITAFOL Branch FE+, WITH DOCUSATE,) 90 mg iron-1 mg -50 mg-200 mg Cap PNV 2020-0 Yes [id number] Take 1 Univer s 102-iron-fo 2-27 TAB-CAP/M2 it y of late 00:00: by mouth [place] [address]-dss-dha 00 daily. Medical (VITAFOL Branch FE+, WITH DOCUSATE,) 90 mg iron-1 mg -50 mg-200 mg Cap PNV 2020-0 Yes [id number] Take 1 Univer s 102-iron-fo 2-27 TAB-CAP/M2 it y of late 00:00: by mouth [place] [address]-dss-formerly [facility] 00 daily. Medical (VITAFOL Branch FE+, WITH DOCUSATE,) 90 mg iron-1 mg -50 mg-200 mg Cap PNV 2020-0 Yes [id number] Take 1 Univer s 102-iron-fo 2-27 TAB-CAP/M2 it y of late 00:00: by mouth [place] [address]-dss-dha 00 daily. Medical (VITAFOL Branch FE+, WITH DOCUSATE,) 90 mg iron-1 mg -50 mg-200 mg Cap PNV 2020-0 Yes [id number] Take 1 Univer s 102-iron-fo 2-27 TAB-CAP/M2 it y of late 00:00: by mouth [place] [address]-dss-formerly [facility] 00 daily. Medical (VITAFOL Branch FE+, WITH DOCUSATE,) 90 mg iron-1 mg -50 mg-200 mg Cap PNV 2020-0 Yes [id number] Take 1 Univer s 102-iron-fo 2-27 TAB-CAP/M2 it y of late 00:00: by mouth [place] [address]-dss-dha 00 daily. Medical (VITAFOL Branch FE+, WITH DOCUSATE,) 90 mg iron-1 mg -50 mg-200 mg Cap PNV 2020-0 Yes [id number] Take 1 Univer s 102-iron-fo 2-27 TAB-CAP/M2 it y of late 00:00: by mouth [address] 00 daily. Medical (VITAFOL Branch FE+, WITH DOCUSATE,) 90 mg iron-1 mg -50 mg-200 mg Cap PNV 2020-0 Yes [id number] Take 1 Univer s 102-iron-fo 2-27 TAB-CAP/M2 it y of late 00:00: by mouth [address] 00 daily. Medical (VITAFOL Branch FE+, WITH DOCUSATE,) 90 mg iron-1 mg -50 mg-200 mg Cap PNV 2020-0 Yes [id number] Take 1 Univer s 102-iron-fo 2-27 TAB-CAP/M2 it y of late 00:00: by mouth [address] 00 daily. Medical (VITAFOL Branch FE+, WITH DOCUSATE,) 90 mg iron-1 mg -50 mg-200 mg Cap PNV 2020-0 Yes [id number] Take 1 Univer s 102-iron-fo 2-27 TAB-CAP/M2 it y of late 00:00: by mouth [address] daily. Medical (VITAFOL Branch FE+, WITH DOCUSATE,) 90 mg iron-1 mg -50 mg-200 mg Cap PNV 2020-0 Yes [id number] Take 1 Univer s 102-iron-fo 2-27 TAB-CAP/M2 it y of late 00:00: by mouth [address] 00 daily. Medical (VITAFOL Branch FE+, WITH DOCUSATE,) 90 mg iron-1 mg -50 mg-200 mg Cap PNV 2020-0 Yes [id number] Take 1 Univer s 102-iron-fo 2-27 TAB-CAP/M2 it y of late 00:00: by mouth [address] 00 daily. Medical (VITAFOL Branch FE+, WITH DOCUSATE,) 90 mg iron-1 mg -50 mg-200 mg Cap PNV 2020-0 Yes [id number] Take 1 Univer s 102-iron-fo 2-27 TAB-CAP/M2 it y of late 00:00: by mouth [address] 00 daily. Medical (VITAFOL Branch FE+, WITH DOCUSATE,) 90 mg iron-1 mg -50 mg-200 mg Cap PNV 2020-0 Yes [id number] Take 1 Univer s 102-iron-fo 2-27 TAB-CAP/M2 it y of late 00:00: by mouth [address] 00 daily. Medical (VITAFOL Branch FE+, WITH DOCUSATE,) 90 mg iron-1 mg -50 mg-200 mg Cap PNV 2020-0 Yes [id number] Take 1 Univer s 102-iron-fo 2-27 TAB-CAP/M2 it y of late 00:00: by mouth [address] daily. Medical (VITAFOL Branch FE+, WITH DOCUSATE,) 90 mg iron-1 mg -50 mg-200 mg Cap PNV 2020-0 Yes [id number] Take 1 Univer s 102-iron-fo 2-27 TAB-CAP/M2 it y of late 00:00: by mouth [address] daily[address] Medical (VITAFOL Branch FE+, WITH DOCUSATE,) 90 mg iron-1 mg -50 mg-200 mg Cap PNV 2020-0 Yes [id number] Take 1 Univer s 102-iron-fo 2-27 TAB-CAP/M2 it y of late 00:00: by mouth [address] daily[address] Medical (VITAFOL Branch FE+, WITH DOCUSATE,) 90 mg iron-1 mg -50 mg-200 mg Cap PNV 2020-0 Yes [id number] Take 1 Univer s 102-iron-fo 2-27 TAB-CAP/M2 it y of late 00:00: by mouth [address] daily[address] Medical (VITAFOL Branch FE+, WITH DOCUSATE,) 90 mg iron-1 mg -50 mg-200 mg Cap PNV 2020-0 Yes [id number] Take 1 Univer s 102-iron-fo 2-27 TAB-CAP/M2 it y of late 00:00: by mouth [address] 00 daily. Medical (VITAFOL Branch FE+, WITH DOCUSATE,) 90 mg iron-1 mg -50 mg-200 mg Cap PNV 2020-0 Yes [id number] Take 1 Univer s 102-iron-fo 2-27 TAB-CAP/M2 it y of late 00:00: by mouth [place] 1-dss-dha 00 daily. Medical (VITAFOL Branch FE+, WITH DOCUSATE,) 90 mg iron-1 mg -50 mg-200 mg Cap PNV 2020-0 Yes [id number] Take 1 Univer s 102-iron-fo 2-27 TAB-CAP/M2 it y of late 00:00: by mouth [place] 1-dss-dha 00 daily. Medical (VITAFOL Branch FE+, WITH DOCUSATE,) 90 mg iron-1 mg -50 mg-200 mg Cap PNV 2020-0 Yes [id number] Take 1 Univer s 102-iron-fo 2-27 TAB-CAP/M2 it y of late 00:00: by mouth [place] 1-dss-dha 00 daily. Medical (VITAFOL Branch FE+, WITH DOCUSATE,) 90 mg iron-1 mg -50 mg-200 mg Cap PNV 2020-0 Yes [id number] Take 1 Univer s 102-iron-fo 2-27 TAB-CAP/M2 it y of late 00:00: by mouth [place] 1-dss-dha 00 daily. Medical (VITAFOL Branch FE+, WITH DOCUSATE,) 90 mg iron-1 mg -50 mg-200 mg Cap PNV 2020-0 Yes [id number] Take 1 Univer s 102-iron-fo 2-27 TAB-CAP/M2 it y of late 00:00: by mouth [place] 1-dss-dha 00 daily. Medical (VITAFOL Branch FE+, WITH DOCUSATE,) 90 mg iron-1 mg -50 mg-200 mg Cap PNV 2020-0 Yes [id number] Take 1 Univer s 102-iron-fo 2-27 TAB-CAP/M2 it y of late 00:00: by mouth [place] [address]-dss-dha 00 daily. Medical (VITAFOL Branch FE+, WITH DOCUSATE,) 90 mg iron-1 mg -50 mg-200 mg Cap PNV 2020-0 2020- No [id number] Take 1 Unive rs 102-iron-fo 2-27 10-27 [...] Immunizations Ordered Filled Immunization Date Status Comments [facility] e Immunization Name Name Influenza Virus 2020-07-28 Completed Universit y of [facility] [place] .5 mL 00:00:00 [place] [facility] IM 6+ MO Branch Influenza Virus 2020-07-28 Completed Universit y of [facility] [place] .5 mL 00:00:00 [facility] IM 6+ MO Branch Influenza Virus 2020-07-28 Completed Universit y of [place] .5 mL 00:00:00 [place] [facility] IM 6+ MO Branch Influenza Virus 2020-07-28 Completed Universit y of [place] .5 mL 00:00:00 [place] [facility] IM 6+ MO Branch Influenza Virus 2020-07-28 Completed Universit y of [place] .5 mL 00:00:00 [place] [facility] IM 6+ MO Branch Influenza Virus 2020-07-28 Completed Universit y of [place] .5 mL 00:00:00 [place] [facility] IM 6+ MO Branch Influenza Virus 2020-07-28 Completed Universit y of [place] .5 mL 00:00:00 [place] [facility] 6+ MO Branch Influenza Virus 2020-07-28 [...] y of Vaccine [place] .5 mL 00:00:00 [place] [facility] 6+ MO Branch TDAP 2020-06-03 Completed University of 00:00:00 [place] [facility] [place] TDAP 2020-06-03 Completed University of 00:00:00 [place] [facility] [place] TDAP 2020-06-03 Completed University of 00:00:00 [place] [facility] [place] TDAP 2020-06-03 Completed University of 00:00:00 [place] [facility] [place] TDAP 2020-06-03 Completed University of 00:00:00 [place] [facility] [place] TDAP 2020-06-03 Completed University of 00:00:00 [place] [facility] [place] TDAP 2020-06-03 Completed University of 00:00:00 [place] [facility] [place] TDAP 2020-06-03 Completed University of 00:00:00 [place] [facility] [place] TDAP 2020-06-03 Completed University of 00:00:00 [place] [facility] [place] TDAP 2020-06-03 Completed University of 00:00:00 [facility] TDAP 2020-06-03 Completed University of 00:00:00 [facility] TDAP 2020-06-03 Completed University of 00:00:00 [facility] TDAP 2020-06-03 Completed University of 00:00:00 [facility] TDAP 2020-06-03 Completed University of 00:00:00 [place] [facility] TDAP 2020-06-03 Completed University of 00:00:00 [place] [facility] TDAP 2020-06-03 Completed University of 00:00:00 [place] [facility] TDAP 2020-06-03 Completed University of 00:00:00 [facility] Branch TDAP 2020-06-03 Completed University of 00:00:00 [facility] Branch TDAP 2020-06-03 Completed University of 00:00:00 [facility] Branch TDAP 2020-06-03 Completed University of 00:00:00 [facility] Branch TDAP 2020-06-03 Completed University of 00:00:00 [facility] Branch TDAP 2020-06-03 Completed University of 00:00:00 [facility] Branch TDAP 2020-06-03 Completed University of 00:00:00 [facility] TDAP 2020-06-03 Completed University of 00:00:00 [facility] TDAP 2020-06-03 Completed University of 00:00:00 [facility] TDAP 2020-06-03 Completed University of 00:00:00 [facility] TDAP 2020-06-03 Completed University of 00:00:00 [facility] TDAP 2020-06-03 Completed University of 00:00:00 [facility] HEPATITIS A 2017-06-10 Completed University of 00:00:00 [facility] HEPATITIS A 2017-06-10 Completed University of 00:00:00 [facility] HEPATITIS A 2017-06-10 Completed University of 00:00:00 [facility] HEPATITIS A 2017-06-10 Completed University of 00:00:00 [facility] HEPATITIS A 2017-06-10 Completed University of 00:00:00 [facility] HEPATITIS A 2017-06-10 Completed University of 00:00:00 [facility] HEPATITIS A 2017-06-10 Completed University of 00:00:00 [facility] HEPATITIS A 2017-06-10 Completed University of 00:00:00 [facility] HEPATITIS A 2017-06-10 Completed University of 00:00:00 [facility] Vital Signs Vital Name Observation Time Observation Value Comments Source Systolic blood 2021-02-16 15:27:00 112 mm[Hg] Univer sity of pressure [facility] Diastolic blood 2021-02-16 15:27:00 76 mm[Hg] Unive rsity of pressure [place] [facility] Heart rate 2021-02-16 15:27:00 77 /min Universi ty of [place] [facility] Body temperature 2021-02-16 15:27:00 37 Lucina Univ ersity of [place] [facility] Respiratory rate 2021-02-16 15:27:00 18 /min Univ ersity of [place] [facility] Body height 2021-02-16 15:27:00 160 cm Universi ty of [place] [facility] Body weight 2021-02-16 15:27:00 74.753 kg Universi ty [facility] [place] [facility] BMI 2021-02-16 15:27:00 29.19 kg/m2 Universi ty of [place] [facility] Systolic blood 2020-11-23 14:40:00 120 mm[Hg] Univer sity of pressure [place] [facility] Diastolic blood 2020-11-23 14:40:00 84 mm[Hg] Unive rsity of pressure [place] [facility] Heart rate 2020-11-23 14:40:00 78 /min Universi ty of [place] [facility] Body temperature 2020-11-23 14:40:00 36.78 Lucina Univ ersity of [place] [facility] Respiratory rate 2020-11-23 14:40:00 18 /min Univ ersity of [place] [facility] Body height 2020-11-23 14:40:00 160 cm Universi ty of [place] [facility] Body weight 2020-11-23 14:40:00 71.668 kg Universi ty [facility] [place] [facility] BMI 2020-11-23 14:40:00 27.99 kg/m2 Universi ty [facility] [place] [facility] Systolic blood 2020-09-15 17:58:00 120 mm[Hg] Univer sity of pressure [place] [facility] Diastolic blood 2020-09-15 17:58:00 72 mm[Hg] Unive rsity of pressure [place] [facility] Heart rate 2020-09-15 17:58:00 71 /min Universi ty of [place] [facility] Body temperature 2020-09-15 17:58:00 36.94 Lucina Univ ersity of [place] [facility] Respiratory rate 2020-09-15 17:58:00 18 /min Univ ersity of [place] [facility] Body height 2020-09-15 17:58:00 160 cm Universi ty [facility] [place] [facility] Body weight 2020-09-15 17:58:00 70.761 kg [facility]i ty [facility] [place] [facility] BMI 2020-09-15 17:58:00 27.63 kg/m2 Universi ty of [place] [facility] Systolic blood 2020-08-23 17:45:00 132 mm[Hg] Univer sity of pressure [facility] Branch Diastolic blood 2020-08-23 17:45:00 81 mm[Hg] Unive rsity of pressure [facility] Heart rate 2020-08-23 17:45:00 75 /min Universi ty of [facility] Body temperature 2020-08-23 17:45:00 36.94 Lucina Univ ersity of [facility] Branch Respiratory rate 2020-08-23 17:45:00 18 /min Univ ersity of [facility] Branch Oxygen saturation in 2020-08-23 17:45:00 100 /min University Arterial blood by [facility] Pulse oximetry Branch Body height 2020-08-22 10:03:00 160 cm Universi ty of [facility] Body weight 2020-08-22 10:03:00 80.468 kg Universi ty of [facility] BMI 2020-08-22 10:03:00 31.42 kg/m2 Universi ty of [place] [facility] Systolic blood 2020-08-18 18:12:00 129 mm[Hg] Univer sity of pressure [facility] Branch Diastolic blood 2020-08-18 18:12:00 84 mm[Hg] Unive rsity of pressure [facility] Branch Heart rate 2020-08-18 18:12:00 75 /min Universi ty of [facility] Body temperature 2020-08-18 18:12:00 36.78 Lucina Univ ersity of [facility] Respiratory rate 2020-08-18 18:12:00 18 /min Univ ersity of [facility] Branch Body height 2020-08-18 18:12:00 160 cm Universi ty of [place] [facility] Body weight 2020-08-18 18:12:00 80.287 kg Universi ty of [place] [facility] BMI 2020-08-18 18:12:00 31.35 kg/m2 Universi ty of [facility] Branch Systolic blood 2020-08-10 14:17:00 124 mm[Hg] Univer sity of pressure [facility] Branch Diastolic blood 2020-08-10 14:17:00 86 mm[Hg] Unive rsity of pressure [facility] Heart rate 2020-08-10 14:17:00 89 /min Universi ty of [place] [facility] Body temperature 2020-08-10 14:17:00 36.72 Lucina Univ ersity of [place] [facility] Respiratory rate 2020-08-10 14:17:00 18 /min Univ ersity of [place] [facility] Body height 2020-08-10 14:17:00 160 cm Universi ty of [place] [facility] Body weight 2020-08-10 14:17:00 79.833 kg Universi ty of [place] [facility] BMI 2020-08-10 14:17:00 31.18 kg/m2 Universi ty [facility] [place] [facility] Systolic blood 2020-07-28 16:25:00 126 mm[Hg] Univer sity of pressure [place] [facility] Diastolic blood 2020-07-28 16:25:00 85 mm[Hg] Unive rsity of pressure [place] [facility] Heart rate 2020-07-28 16:25:00 100 /min Universi ty of [place] [facility] Body temperature 2020-07-28 16:25:00 36.67 Lucina Univ ersity of [facility] Respiratory rate 2020-07-28 16:25:00 18 /min Univ ersity of [place] [facility] Body height 2020-07-28 16:25:00 160 cm Universi ty of [place] [facility] Body weight 2020-07-28 16:25:00 80.559 kg [facility]i ty [facility] [place] [facility] BMI 2020-07-28 16:25:00 31.46 kg/m2 Universi ty [facility] [place] [facility] Systolic blood 2020-07-01 14:07:00 126 mm[Hg] Univer sity of pressure [place] [facility] Diastolic blood 2020-07-01 14:07:00 83 mm[Hg] Unive rsity of pressure [place] [facility] Heart rate 2020-07-01 14:07:00 96 /min Universi ty of [place] [facility] Body temperature 2020-07-01 14:07:00 36.78 Lucina Univ ersity of [place] [facility] Respiratory rate 2020-07-01 14:07:00 18 /min Univ ersity of [place] [facility] Body height 2020-07-01 14:07:00 160 cm [facility]i ty [facility] [place] [facility] Body weight 2020-07-01 14:07:00 78.926 kg Universi ty [facility] [place] [facility] BMI 2020-07-01 14:07:00 30.82 kg/m2 Universi ty [facility] [place] [facility] Systolic blood 2020-06-17 16:49:00 126 mm[Hg] Univer sity of pressure [place] [facility] Diastolic blood 2020-06-17 16:49:00 75 mm[Hg] Unive rsity of pressure [place] [facility] Heart rate 2020-06-17 16:49:00 92 /min Universi ty of [place] [facility] Body temperature 2020-06-17 16:49:00 36.78 Lucina Univ ersity of [place] [facility] Respiratory rate 2020-06-17 16:49:00 18 /min Univ ersity of [place] [facility] Body height 2020-06-17 16:49:00 160 cm Universi ty [facility] [place] [facility] Body weight 2020-06-17 16:49:00 78.926 kg Universi ty of [place] [facility] BMI 2020-06-17 16:49:00 30.82 kg/m2 Universi ty of [facility] Branch Systolic blood 2020-06-03 16:28:00 136 mm[Hg] Univer sity of pressure [place] [facility] Diastolic blood 2020-06-03 16:28:00 82 mm[Hg] Unive rsity of pressure [place] [facility] Heart rate 2020-06-03 16:28:00 93 /min Universi ty of [place] [facility] Body temperature 2020-06-03 16:28:00 36.78 Lucina Univ ersity of [place] [facility] Respiratory rate 2020-06-03 16:28:00 18 /min Univ ersity of [place] [facility] Body height 2020-06-03 16:28:00 160 cm [facility]i ty [facility] [place] [facility] Body weight 2020-06-03 16:28:00 76.658 kg [facility] ty [facility] [place] [facility] BMI 2020-06-03 16:28:00 29.94 kg/m2 [facility] ty [facility] [place] [facility] Systolic blood 2020-05-06 18:31:00 129 mm[Hg] Univer sity of pressure [place] [facility] Diastolic blood 2020-05-06 18:31:00 76 mm[Hg] Unive rsity of pressure [place] [facility] Heart rate 2020-05-06 18:31:00 96 /min Universi ty of [place] [facility] Body temperature 2020-05-06 18:31:00 36.83 Lucina Univ ersity of [place] [facility] Respiratory rate 2020-05-06 18:31:00 18 /min Univ ersity of [place] [facility] Body height 2020-05-06 18:31:00 160 cm [facility]i ty of [place] [facility] [place] Body weight 2020-05-06 18:31:00 74.844 kg Universi ty of [place] [facility] BMI 2020-05-06 18:31:00 29.23 kg/m2 Universi ty of [facility] Branch Systolic blood 2020-04-07 13:43:00 113 mm[Hg] Univer sity of pressure [facility] Diastolic blood 2020-04-07 13:43:00 76 mm[Hg] Unive rsity of pressure [facility] Heart rate 2020-04-07 13:43:00 76 /min Universi ty of [facility] Body temperature 2020-04-07 13:43:00 36.78 Lucina Univ ersity of [facility] Respiratory rate 2020-04-07 13:43:00 18 /min Univ ersity of [facility] Body height 2020-04-07 13:43:00 160 cm Universi ty of [facility] Body weight 2020-04-07 13:43:00 71.396 kg Universi ty of [facility] BMI 2020-04-07 13:43:00 27.88 kg/m2 Universi ty of [facility] Systolic blood 2020-04-02 18:02:00 115 mm[Hg] Univer sity of pressure [facility] Diastolic blood 2020-04-02 18:02:00 77 mm[Hg] Unive rsity of pressure [facility] Heart rate 2020-04-02 18:02:00 91 /min Universi ty of [facility] Body temperature 2020-04-02 18:02:00 36.94 Lucina Univ ersity of [facility] Respiratory rate 2020-04-02 18:02:00 18 /min Univ ersity of [facility] Body height 2020-04-02 18:02:00 160 cm Universi ty of [facility] Body weight 2020-04-02 18:02:00 70.761 kg Universi ty of [place] [facility] BMI 2020-04-02 18:02:00 27.63 kg/m2 Universi ty of [facility] Oxygen saturation in 2020-04-02 18:02:00 98 /min University of Arterial blood by [facility] Pulse oximetry Branch Systolic blood 2020-01-11 21:25:00 125 mm[Hg] Univer sity of pressure [facility] Diastolic blood 2020-01-11 21:25:00 79 mm[Hg] Unive rsity of pressure [place] [facility] Heart rate 2020-01-11 21:25:00 113 /min Universi ty of [place] [facility] Body temperature 2020-01-11 21:25:00 36.94 Lucina Univ ersity of [place] [facility] Respiratory rate 2020-01-11 21:25:00 18 /min Univ ersity of [place] [facility] Body height 2020-01-11 21:25:00 160 cm [facility]i ty [facility] [place] [facility] Body weight 2020-01-11 21:25:00 69.854 kg Universi ty [facility] [place] [facility] BMI 2020-01-11 21:25:00 27.28 kg/m2 [facility] ty [facility] [place] [facility] Systolic blood 2019-12-23 15:53:00 131 mm[Hg] Univer sity of pressure [place] [facility] Diastolic blood 2019-12-23 15:53:00 80 mm[Hg] Unive rsity of [facility] Medical [facility] Heart rate 2019-12-23 15:53:00 84 /min Universi ty of [place] [facility] Body temperature 2019-12-23 15:53:00 36.72 Lucina Univ ersity of [place] [facility] Respiratory rate 2019-12-23 15:53:00 18 /min Univ ersity of [place] [facility] Body height 2019-12-23 15:53:00 157.5 cm [facility]i ty [facility] [place] [facility] Body weight 2019-12-23 15:53:00 68.947 kg [facility]i ty [facility] [place] [facility] BMI 2019-12-23 15:53:00 27.80 kg/m2 [facility] [place] [facility] Procedures Procedure Date / Time Performing Clinician Source Performed US RETROPERITONEAL 2022-06-26 20:53:00 Requisition, Paper [facility] Medical Branch CONSENT/REFUSAL FOR 2022-06-26 19:38:32 Doctor Unassigned, [facility] DIAGNOSIS AND TREATMENT [place] [facility] ASSIGNMENT OF BENEFITS 2022-06-26 19:38:12 Doctor Unassigned, [facility] Name Medical Branch CONSENT FOR DEPO-PROVERA 2020-09-15 06:01:00 Doctor Unassraheel, [facility] [place] [facility] CBC WITH DIFF 2020-08-23 09:41:00 Chemo Yates [place] [facility] VENOUS CORD GAS 2020-08-22 20:49:[address] [facility] CBC WITH DIFF 2020-08-22 10:38:[address] [facility] HEPATITIS B SURFACE 2020-08-22 10:38:00 Chemo Yates [facility] ANTIGEN [facility] Branch ADC OR QUITA ONLY - RPR 2020-08-22 10:38:00 [facility]-AB WITH REFLEX 2020-08-22 10:38:00 [facility] COVID-19 (ID NOW RAPID 2020-08-22 10:38:00 Chemo Yates [facility] TESTING) Medical Branch LAB ONLY COVID 2020-08-22 10:38:00 Chemo Yates [facility] INTERPRETATION [facility] HB ABO GROUPING 2020-08-22 10:36:[address] [facility] RHO (D) IMMUNE GLOBULIN 2020-08-22 10:36:00 Chemo Yates [facility] HOSPITAL ADMISSION 2020-08-22 05:01:00 Doctor Unassigned, [facility] Name Medical [place] ASSIGNMENT OF BENEFITS 2020-08-18 21:29:24 Doctor Unassigned, [facility] Name Medical [place] >14 WEEKS US 2020-08-10 14:51:15 Chemo Yates [facility] DSU PRE-OP 2020-08-10 05:01:00 Doctor Unassigned, [facility] [place] [facility] [place] POCT URINALYSIS W/O 2020-08-10 00:00:00 Chemo Yates [facility] SPECIFIC GRAVITY [facility] FLU VACC ([id number]), 6+ 2020-07-28 16:26:55 Chemo Yates [facility] MONTHS, IM, QUAD Medical Branch DME/SUPPLY JUSTIFICATION 2020-07-28 05:01:00 Doctor Unassigned, [facility] [place] [facility] [place] POCT URINALYSIS W/O 2020-07-28 00:00:00 Chemo Yates [facility] SPECIFIC GRAVITY Medical Branch POCT URINALYSIS W/O 2020-07-01 00:00:00 Sophia Heard [facility] POCT URINALYSIS W/O 2020-06-17 00:00:00 Chemo Yates [facility] SPECIFIC [facility] CBC WITH DIFF 2020-06-10 15:25:[address] [facility] CONSENT/REFUSAL FOR 2020-06-10 13:37:42 Doctor Unamustapha, [facility] DIAGNOSIS AND TREATMENT [place] [facility] [place] ASSIGNMENT OF BENEFITS 2020-06-10 13:37:26 Doctor Unassraheel, Un [facility] Name [facility] TDAP VACCINE, >11 YRS, IM 2020-06-03 16:36:16 Sophia Heard Un [facility] POCT URINALYSIS W/O 2020-06-03 00:00:00 Sophia Heard [facility] POCT URINALYSIS W/O 2020-05-06 00:00:00 Sophia Heard [facility] POCT URINALYSIS W/O 2020-04-07 00:00:00 Chemo Yates [facility] POCT URINALYSIS 2020-04-02 18:10:00 Justin [facility] AGREEMENTS AUTHORIZATIONS 2020-03-09 05:01:00 Doctor Koby, [facility] AND IRREVOCABLE [place] [facility] [place] ASSIGNMENTS (FORM 2001) SCANNED LAB RESULTS 2020-02-10 05:01:00 Doctor [facility] <14 WEEKS US 2020-01-11 23:15:16 Chemo Yates [facility] 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 [facility] ULTRASOUND 2020-01-11 05:01:00 Doctor Koby, [facility] [place] [facility] [place] US OB TRANSVAGINAL 2019-12-24 09:53:24 [facility] H[facility] 2019-12-23 21:58:00 Chemo Yates [facility] POCT TEST 2019-12-23 00:00:00 Chemo Yates [facility] POCT URINALYSIS W/O 2019-12-23 00:00:00 Chemo Yates ty of [place] SPECIFIC [facility] Encounters Start End Encounter Admission Attending Care Care Encounter Source Date/Time Date/Time Type Type Clinicians Facility Department ID 2021-08-26 Outpatient P [facility] NIURKA [id number] Univers 00:35:48 ity of [facility] 2022-08-07 2022-08-07 Outpatient R BO LEE [facility] [id number] Univers 15:30:00 15:30:00 ity of [facility] 2022-06-26 2022-06-26 Outpatient R RADIOLOGY [facility] [id number] Univers 14:39:56 23:59:00 ity of [facility] 2022-06-26 2022-06-26 Hospital Radiology [facility] [id number] Univers 14:39:56 23:59:00 Encounter [facility] [id number] ity of [place] [id number] [facility] [id number] [facility] 806 [place] 2021-06-08 2021-06-08 Laboratory Lab, Adc Fam Pob I [facility] [id number] Univers 18:44:19 19:04:19 [facility] [id number] ity of [place] [id number] [place] as Professio [id number] [address] 2021-06-08 2021-06-08 Outpatient R HENRY [facility] [id number] Univers 19:00:00 19:00:00 [facility] 2021-05-18 2021-05-18 Outpatient R [facility] [id number] Univers 09:00:00 09:00:00 ity of [facility] 2021-04-03 2021-04-03 Outpatient R ORQUIDEA [facility] [id number] Univers 13:30:00 13:30:00 [facility] 2021-03-15 2021-03-15 Outpatient R ORQUIDEA [facility] [id number] Univers 08:00:00 08:00:00 [facility] 2021-02-16 2021-02-16 Nurse Nurse, [facility] [id number] Univers 10:01:31 10:24:11 Visit Sophia Heard [id number] it[place] [id number] [place] Profess[place] [phone] Ok dical nal [address] [facility] 2021-02-16 2021-02-16 Outpatient R [facility] [id number] Univers 10:00:00 10:00:00 [facility] of [facility] [facility] 2020-11-23 2020-11-23 Nurse Nurse, [facility] 1.2.840.114 [id number] Univers 08:08:16 08:49:20 Visit Celine Yatesen Axel Padron 350.1.13.10 it[place] of [place] [phone] Ok dical nal [address] [place] [address] 2020-11-23 2020-11-23 Outpatient R [facility] [id number] Univers 08:00:00 08:00:00 ity of [facility] 2020-10-18 2020-10-18 Laboratory Lab, [facility] Fam Pob I [facility] 1.2. 840.114 [id number] Univers 19:07:40 19:27:40 Only [employer] 350.1.13.10 ity of [place] 4.2.7.2.686 Adarsh as Professio [phone] Ok dical nal [address] 2020-10-18 2020-10-18 Outpatient R [facility] [id number] Univers 19:20:00 19:20:00 ity of [facility] 2020-09-15 2020-09-15 Routine [facility] 1.2.916.134 [id number] Univers 11:23:30 11:38:30 Sophia Padron 350.1.13.10 [place] [phone] Ok dical nal 134 [facility] 2020-09-15 2020-09-15 [facility] [id number] Univers 11:30:00 11:30:00 SOPHIA ity of [facility] 2020-09-15 2020-09-15 Orders Doctor MARYJO 1.2.840.114 [id number] Univers 00:00:00 00:00:00 Only Unassigned, ZAK 350.1.13.10 ity of [place] [facility] 4.2.7.2.686 Adarsh as [phone] [address] 2020-08-22 2020-08-23 Hospital Trudy [facility] 1.2.840.114 [id number] Univers 03:53:00 19:55:00 Encounter Cam [place] 350.1.13.10 [place] [phone] [address] 2020-08-22 2020-08-22 Outpatient R [facility] [id number] Univers 09:15:00 09:15:00 ity of [facility] 2020-08-22 2020-08-22 Orders Doctor SIBLEY 1.2.840.114 [id number] Univers 00:00:00 00:00:00 Only Unassigned, ZAK 350.1.13.10 ity of [place] [facility] 4.2.7.2.686 Adarsh as [phone] [address] 2020-08-18 2020-08-18 Routine Trudy [facility] 1.2.409.532 [id number] Univers 12:52:48 13:30:31 Cam [place] 350.1.13.10 [place] [facility] [phone] [facility] 2020-08-18 2020-08-18 Outpatient R TRUDY CHEMO [facility] [id number] Univers 13:00:00 13:00:00 ity of [facility] 2020-08-18 2020-08-18 Orders Doctor MARYJO Martinez2.840.114 [id number] Univers 00:00:00 00:00:00 Only Unassigned, ZAK 350.1.13.10 ity of [place] [facility] 4.2.7.2.686 Adarsh as [phone] [address] 2020-08-10 2020-08-10 Outpatient R CHEMO YATES [facility] [id number] Univers 09:15:00 09:15:00 ity of [facility] 2020-08-10 2020-08-10 Routine Chemo Yates [facility] 1.2.761.274 [id number] Univers 08:56:31 09:11:31 Axel Padron 350.1.13.10 it[place] [phone] Me dical nal 134 [facility] 2020-08-10 2020-08-10 Orders Doctor MARYJO 1.2.840.114 [id number] Univers 00:00:00 00:00:00 Only Unassigned, ZAK 350.1.13.10 ity of [place] [facility] 4.2.7.2.686 Ad[place] as [phone] [address] 2020-08-09 2020-08-09 Pairer Odds 2, Adc Lab [facility] 1.2.840.114 [id number] Univers 13:43:22 13:58:22 Visit Chemo Yates Nereida 350.1.13.10 it[place] of [place] [phone] Ok dical nal 353 [facility] 2020-08-09 2020-08-09 Outpatient R ORQUIDEA [facility] [id number] Univers 13:30:00 13:30:00 SOPHIA ity of [facility] 2020-08-09 2020-08-09 Case Chemo Yates [facility] 1.2.293.582 [id number] Univers 00:00:00 00:00:00 Management Axel Padron 350.1.13.10 it[place] of [place] [phone] Ok dical nal 134 [facility] 2020-07-28 2020-07-28 Routine Chemo Yates [facility] 1.2.840.114 [id number] Univers 11:04:19 11:54:14 Sophia Heard 350.1.13.10 ity [place] [phone] [address] 2020-07-28 2020-07-28 Outpatient R GABRIELSAVANNAHREA [facility] [id number] Univers 11:15:00 11:15:00 SOPHIA itroman [facility] 2020-07-28 2020-07-28 Orders Doctor MARYJO 1.2.840.114 [id number] Univers 00:00:00 00:00:00 Only Unassigned, ZAK 350.1.13.10 ity of [place] [facility] 4.2.7.2.686 Adarsh as [phone] [address] 2020-07-27 2020-07-27 Telephone Orquidea [facility] 1.2.840.114 [id number] Univers 00:00:00 00:00:00 Sophia Padron 350.1.13.10 i ty of [place] [phone] [address] 2020-07-27 2020-07-27 Telephone Trudy [facility] 1.2.840.114 [id number] Univers 00:00:00 00:00:00 Cam [place] 350.1.13.10 i ty of [place] [phone] [address] 2020-07-27 2020-07-27 Tele[facility] 1.2.840.114 [id number] Univers 00:00:00 00:00:00 Cam [place] 350.1.13.10 i ty [place] [phone] [address] 2020-07-20 2020-07-20 Telephone [facility] 1.2.840.114 [id number] Univers 00:00:00 00:00:00 Cam [place] 350.1.13.10 i ty of [place] [phone] [address] 2020-07-15 2020-07-15 Refill Trudy [facility] 1.2.628.697 [id number] Univers 00:00:00 00:00:00 Cam [place] 350.1.13.10 i ty of [place] [phone] [address] 2020-07-14 2020-07-14 Telemedici Gabrielanu [facility] 1.2.840.114 [id number] Univers 08:32:42 12:12:47 ne Visit Sophia Nereida 350.1.13.10 ity of [place] [phone] [address] 2020-07-14 2020-07-14 Outpatient R ORQUIDEA [facility] [id number] Univers 11:15:00 11:15:00 SOPHIA itroman [facility] 2020-07-01 2020-07-01 Routine Chemo Yates [facility] 1.2.840.114 [id number] Univers 09:00:29 09:45:56 Orquidea Sophiasalena Padron 350.1.13.10 ity of [place] [phone] [address] 2020-07-01 2020-07-01 Outpatient R ORQUIDEA [facility] [id number] Univers 09:00:00 09:00:00 SOPHIA itroman [facility] 2020-06-17 2020-06-17 Routine Trudy [facility] 1.2.284.827 [id number] Univers 11:10:02 15:55:27 Axel Padron 350.1.13.10 ity [place] [phone] [address] 2020-06-17 2020-06-17 Outpatient R CHEMO YATES [facility] [id number] Univers 09:00:00 09:00:00 ity of [facility] 2020-06-10 2020-06-10 Outpatient R CHEMO YATES [facility] [id number] Univers 09:00:00 09:00:00 ity of [facility] 2020-06-10 2020-06-10 Pairer Odds Lo Ansari Lab Main [facility] 1.2.8 40.114 [id number] Univers 08:39:25 08:54:25 Visit TrudyChemo Axel Padron 350.1.13.10 ity of [place] [phone] Ok dical nal 353 [facility] 2020-06-10 2020-06-10 Orders Doctor MARYJO 1.2.840.114 [id number] Univers 00:00:00 00:00:00 Only Unassigned, ZAK 350.1.13.10 [facility] 4.2.7.2.686 Adarsh as [phone] [address] 2020-06-06 2020-06-06 Outpatient R [facility] [id number] Univers 10:45:00 10:45:00 ity of [facility] 2020-06-03 2020-06-03 Routine [facility] 1.2.816.341 [id number] Univers 11:16:20 11:42:07 Sophia Padron 350.1.13.10 ity [place] [phone] Ok dical nal 134 [facility] 2020-06-03 2020-06-03 [facility] [id number] Univers 11:30:00 11:30:00 SOPHIA ity [facility] 2020-05-06 2020-05-06 Out[facility] [id number] Univers 16:15:00 16:15:00 SOPHIA ity [facility] 2020-05-06 2020-05-06 Routine [facility] 1.2.908.876 [id number] Univers 13:05:12 13:38:21 Sophia Padron 350.1.13.10 ity [place] [phone] Ok dical nal 134 [facility] 2020-04-19 2020-04-19 Pairer Odds [facility] 1.2 .840.114 [id number] Univers 10:36:43 11:23:34 Visit Eladio Neal [employer]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 350.1.13.10 ity of [facility] 4.2.7.2.686 Adarsh as MATERNAL [phone] Med ical & CHILD [address] [place] [address] 2020-04-19 2020-04-19 Outpatient P [facility] [id number] Univers 10:30:00 10:30:00 ity of [facility] 2020-04-07 2020-04-07 Routine Trudy [facility] 1.2.496.379 [id number] Univers 08:35:50 09:10:58 Cam [place] 350.1.13.10 ity [place] [phone] Ok dical nal [address] [place] [address] 2020-04-07 2020-04-07 Outpatient R TRUDY CHEMO [facility] [id number] Univers 08:30:00 08:30:00 ity of [facility] 2020-04-02 2020-04-02 Urgent Provider, [facility] 1.2.840.114 [id number] Univers 12:42:41 13:23:46 Care [facility] 350.1.13.10 ity of [place] 4.2.7.2.686 [place] as Professio [phone] [facility] [address] [place] [address] [facility] One 2020-04-02 2020-04-02 Outpatient R JUSTIN [facility] [id number] Univers 12:40:00 12:40:00 RADHA ity of [facility] 2020-04-02 2020-04-02 Letter Justin [facility] 1.2.840.114 [id number] Univers 00:00:00 00:00:00 (Out) [facility] 350.1.13.10 it y of [place] 4.2.7.2.686 [place]arsh as Professio [phone] Ok dical nal [address] 2020-04-01 2020-04-01 Telephone Chemo Yates [facility] 1.2.840.114 [id number] Univers 00:00:00 00:00:00 Cam [place] 350.1.13.10 i ty of [place] [phone] Ok dical nal 134 [facility] 2020-03-09 2020-03-09 Pairer Odds 2, Adc Lab [facility] 1.2.840.114 [id number] Univers 08:08:26 08:23:26 Visit Chemo [place]at[place] 350.1.13.10 ity of [place] [phone] Ok dical nal 353 [facility] 2020-03-09 2020-03-09 Outpatient R [facility] [id number] Univers 08:15:00 08:15:00 ity of [facility] 2020-03-09 2020-03-09 Orders Doctor MARYJO 1.2.840.114 [id number] Univers 00:00:00 00:00:00 Only Unassigned, ZAK 350.1.13.10 [facility] 4.2.7.2.686 Adarsh as [phone] [address] 2020-03-07 2020-03-07 Telemedici Sophia Heard [facility] 1.2.840 .114 [id number] Univers 08:11:42 14:15:39 ne Visit Chemo Yates [place] 350.1.13.10 ity of [place] [phone] Ok dical nal 134 [facility] 2020-03-07 2020-03-07 Outpatient R CHEMO YATES [facility] [id number] Univers 13:00:00 13:00:00 ity of [facility] 2020-02-17 2020-02-17 Telephone Chemo Yates [facility] 1.2.840.114 [id number] Univers 00:00:00 00:00:00 Cam [place] 350.1.13.10 i ty of [place] [phone] Ok dical nal 134 [facility] 2020-02-16 2020-02-16 Telephone Chemo Yates [facility] 1.2.840.114 [id number] Univers 00:00:00 00:00:00 Cam [place] 350.1.13.10 i ty of [place].2.[place] [phone] Ok dical nal 134 [facility] 2020-02-10 2020-02-10 Outpatient R [facility] [id number] Univers 08:15:00 08:15:00 ity of [facility] 2020-02-10 2020-02-10 Orders Doctor MARYJO 1.2.840.114 [id number] Univers 00:00:00 00:00:00 Only Unassigned, ZAK 350.1.13.10 ity of [place] [facility] 4.2.7.2.686 Adarsh as [phone] [address] 2020-02-09 2020-02-09 Outpatient R [facility] [id number] Univers 17:00:00 17:00:00 ity of [facility] 2020-02-08 2020-02-08 Telemedici Trudy [facility] 1.2.840.114 [id number] Univers 08:12:42 14:21:44 ne Visit Axel Padron 350.1.13.10 ity of [place] [phone] Ok dical [address] 2020-02-08 2020-02-08 Outpatient R TRUDY [facility] [id number] Univers 13:30:00 13:30:00 ity of [facility] 2020-01-25 2020-01-25 Pairer Odds Lo Ansari Lab Main [facility] 1.2.8 40.114 [id number] Univers 17:07:36 17:22:36 Visit Trudy Chemojeffery Padron 350.1.13.10 ity of [place]2.[place] [phone] Ok dical [address] 2020-01-25 2020-01-25 Outpatient R TRUDY [facility] [id number] Univers 17:15:00 17:15:00 ity of [facility] 2020-01-18 2020-01-18 Telephone Yates [facility] 1.2.840.114 [id number] Univers 00:00:00 00:00:00 Cam [place] 350.1.13.10 i ty of [place].2.[place] [phone] Ok dical nal [address] [place] [address] 2020-01-11 2020-01-11 Routine Yates, [facility] 1.2.503.164 [id number] Univers 16:08:49 16:42:35 Axel [place] 350.1.13.10 ity of [place].2.[place] [phone] [facility] 134 [facility] 2020-01-11 2020-01-11 Outpatient R CHEMO YATES [facility] [id number] Univers 16:15:00 16:15:00 ity of [facility] 2020-01-11 2020-01-11 Orders Doctor MARYJO 1.2.840.114 [id number] Univers 00:00:00 00:00:00 Only Unassigned, ZAK 350.1.13.[address] [facility] 4.2.7.2.686 Adarsh as [phone] [address] 2020-01-06 2020-01-06 Outpatient R CHEMO YATES [facility] [id number] Univers 15:30:00 15:30:00 ity of [facility] 2019-12-30 2019-12-30 Pairer Odds Elan, Adc Lab Main [facility] 1.2.8 40.114 [id number] Univers 16:58:18 17:13:18 Visit Chemo Yates Axel Palomareston 350.1.13.10 ity of [place] [phone] [facility] 353 [facility] 2019-12-30 2019-12-30 Outpatient R CHEMO YATES [facility] [id number] Univers 17:00:00 17:00:00 ity of [facility] 2019-12-29 2019-12-29 Telephone Trudy [facility] 1.2.840.114 [id number] Univers 00:00:00 00:00:00 Cam [place] 350.1.13.10 i ty of [place] [phone] [facility] 134 [facility] 2019-12-28 2019-12-28 Pairer Odds Elan, Adc Lab Main [facility] 1.2.8 40.114 [id number] Univers 16:38:55 16:53:55 Visit Chemo Yates [place] 350.1.13.10 ity of [place].2.[place] [phone] Ok dical nal [address] [place] [address] 2019-12-28 2019-12-28 Outpatient R CHEMO YATES [facility] [id number] Univers 16:45:00 16:45:00 ity [facility] 2019-12-24 2019-12-24 Telephone Chemo Yates [facility] 1.2.840.114 [id number] Univers 00:00:00 00:00:00 Cam [place] 350.1.13.10 i ty of [place].2.[place] [phone] [address] 2019-12-23 2019-12-23 Pairer Odds 2, Adc Lab [facility] 1.2.840.114 [id number] Univers 15:53:29 16:08:29 Visit Chemo Yates Axel Palomareston 350.1.13.10 ity of [place] 4[place].2.[place] [phone] [address] 2019-12-23 2019-12-23 Initial Chemo Yates [facility] 1.2.725.701 [id number] Univers 09:38:01 10:52:58 Axel Palomareston 350.1.13.10 ity of [place].2.[place] [phone] [address] 2019-12-23 2019-12-23 Outpatient R CHEMO YATES [facility] [id number] Univers 10:00:00 10:00:00 ity [facility] Results Test Description Test Time Test Comments [...] 32.5 g/dL 31.6-35.1 RDW-SD (test code = 55011-0) 39.6 fL 39-49.9 RDW-CV (test code = 788-0) 13.6 % 12-15.5 PLT (test code = 777-3) See_Comment L [Au tomated message] The system which [employer] nerated this result transmit maye reference range: 166 - 35 8 10*3/?L. The reference range was not used to interpret th is result as normal/abnormal . MPV (test code = 56060-4) 11.2 fL 9.5-12.9 NRBC/100 WBC (test code = See_Comment [ Automated message] The 8083584143) system which [employer] nerated this result transmit maye reference range: 0.0 - 10 .0 /100 WBCs. The reference r kevin was not used to interpr et this result as normal/abnor mal. NRBC x10^3 (test code = <0.01 See_Comment [Au tomated message] The 7917323036) system which [employer] nerated this result transmit maye reference range: 10*3/?L. The reference range was not u sed to interpret this result as normal/abnormal . GRAN MAT (NEUT) % (test code 71.7 % = 770-8) IMM GRAN % (test code = 0.40 % 6566252922) LYMPH % (test code = 736-9) 21.1 % MONO % (test code = 5905-5) 5.5 % EOS % (test code = 713-8) 1.0 % BASO % (test code = 706-2) 0.3 % GRAN MAT x10^3(ANC) (test 8.72 10*3/uL 1.88-7.09 H code = 1398556750) IMM GRAN x10^3 (test code = 0.05 10*3/uL 0-0.06 7065537738) LYMPH x10^3 (test code = 2.56 10*3/uL 1.32-3.29 731-0) MONO x10^3 (test code = 0.67 10*3/uL 0.33-0.92 742-7) EOS x10^3 (test code = 0.12 10*3/uL 0.03-0.39 711-2) BASO x10^3 (test code = 0.04 10*3/uL 0.01-0.07 704-7) Lab Interpretation (test Abnormal code = 25626-5) [facility] OR QUITA ONLY - [id number] 06:12:00 Test Item Value Reference Range Interpretation Comments RPR (Qualitative) (test code = Nonreactive Nonreactive 86133-5) Lab Interpretation (test code = Normal 44958-9) [facility] ONLY COVID [id number] 00:29:00COVID DMT InterpretationInterpretation/Recommendations\nTests (PCR) for Active Infection [...] a nasopharyngeal sample, there is approximately a bvv-rk-lauwe chance that the patient was infected and [...] wouldbe important to perform if the IgM qvfh-XZUDO-37 antibody test is positive. B. ? A [...] antibodies, this may be the explanation. ? ?[facility] LABORATORY SERVICESCOVID FibwldcVRXR-YoJ-6 Rapid ID NOW (no units) ? ? Date ? Value ? 08/22/2020 ? Not Detected ? [facility] LABORATORY SERVICESUnHCA [facility] Healthcare ConroeRHO (D) IMMUNE [id number] 23:28:48 Test Item Value Reference Range Interpretation Comments RHIG CANDIDATE? No- see comment Patient i s not a (test code = candidate for R [facility]- 5055) Patient is Rh Positive.Perfor med at [facility] Laboratory Services - [facility] Blood [address] [place] [phone] Free: [phone] A No. [id number] [facility] Cord [id number] 21:03:00 Test Item Value Reference Range Interpretation Comments VENOUS BASE EXCESS, CORD mEq/L (test code = 1135685977) VENOUS PH, CORD (test 7.25-7.45 code = 0452222642) VENOUS PC02, CORD (test See_Comment [Au tomated message] code = 1744874787) The syste m which generated this result transmitted ref erence range: 27 - 49 mmHg. The reference r kevin was not used to interpret this result as normal/abnor mal. VENOUS PO2, CORD (test See_Comment H [Aut omated message] code = 8376455881) The syste m which generated this result transmitted ref erence range: 17 - 41 mmHg. The reference r kevin was not used to interpret this result as normal/abnor mal. VENOUS BICARBONATE, CORD See_Comment [A utomated message] (test code = 8147730873) The system which generated this result transmitted ref erence range: 12 - 29 mEq/L. The reference r kevin was not used to interpret this result as normal/abnor mal. Lab Interpretation (test Abnormal code = 75599-8) [facility] Cord [id number] 21:01:00 Test Item Value Reference Range Interpretation Comments BASE EXCESS, CORD (test mEq/L code = 3007267466) AC PH, CORD (BEAKER) 7.18-7.38 L (test code = 6998704658) PC02, CORD (test code = See_Comment H [Au tomated message] 7120911994) The system whic h generated this result transmitted ref erence range: 32 - 66 mmHg. The reference r kevin was not used to interpret this result as normal/abnor mal. PO2, CORD (test code = See_Comment [Aut omated message] 2148513962) The system whic h generated this result transmitted ref erence range: 10 - 30 mmHg. The reference r kevin was not used to interpret this result as normal/abnor mal. BICARBONATE, CORD (test See_Comment [Au tomated message] code = 8731136474) The syste m which generated this result transmitted ref erence range: 17 - 27 mEq/L. The reference r kevin was not used to interpret this result as normal/abnor mal. Lab Interpretation (test Abnormal code = 17050-6) [facility] [id number] 15:46:00 Test Item Value Reference Range Interpretation Comments HBsAg Semi-Quantitative (test code = Negative Negative 5195-3) [facility]/2 AG-AB WITH [id number] 14:04:00 Test Item Value Reference Range Interpretation Comments HIV Negative Negative Semi-quantitative (test code = 00487-5) [facility]IA GUADALUPE (test code = Non-reactive for HIV-1 MARIA GUADALUPE) antigen and HIV-1/HIV-2 antibodies. ?No laboratory evidence of HIV infection. ?Repeat in 2-4 weeks if acute HIV infection is suspected. [facility] CenterType and Screen - ONCE [id number] 13:13:04 Test Item Value Reference Range Interpretation Comments ABO & RH (test code A Positive Performe d at [facility] = 20) Laboratory [facility] Blood Bank[address] [place], [place] [address]Toll Free: [phone] A No. [id number] IAT (test code = Negative Performed a t [facility] 1185) Laboratory [facility] Blood Bank1 [address] [place], [place] [address]Toll Free: [phone] A No. [id number] [facility] CenterCOVID-19 (ID NOW RAPID TESTING)2020-08-22 11:45:00 Test Item Value Reference Range Interpretation Comments SARS-CoV-2 Rapid ID NOW Not Detected Not Detected (test code = 72119-0) MARIA GUADALUPE (test code = MARIA GUADALUPE) ID NOW COVID-19 Assay is an isothermal nucleic acid amplification test intended for the qualitative detection of nucleic acid from SARS-CoV-2 viral RNA in nasopharyngeal ([employer] MANAGER) specimens. It is used under Emergency Use [...] indicated. Lab Interpretation Normal (test code = 52229-6) [facility] with [id number] 11:23:00 Test Item Value Reference Range Interpretation [...] (test code = 38.8 fL 39-49.9 L 30354-4) RDW-CV (test code = 13.4 % 12-15.5 788-0) PLT (test code = See_Comment [Automated 777-3) message] The sy stem which generated this result transmitted reference range : 166 - 358 10*3/ ?L. The reference r kevin was not used to interpret this result as normal/abnormal . MPV (test code = 11.4 fL 9.5-12.9 71329-3) NRBC/100 WBC (test See_Comment [Automat ed code = [id number]) message] The system which generated this result transmitted reference range : 0.0 - 10.0 /100 WBCs. The refer ence range was not u sed to interpret th is result as normal/abnormal . NRBC x10^3 (test code <0.01 See_Comment [Auto mated = [id number]) message] The s ystem which generated this result transmitted reference range : 10*3/?L. The reference range was not used to interpret this result as normal/abnormal . GRAN MAT (NEUT) % 62.7 % (test code = 770-8) IMM GRAN % (test code 0.80 % = [id number]) LYMPH % (test code = 27.4 % 736-9) MONO % (test code = 7.1 % 5905-5) EOS % (test code = 1.5 % 713-8) BASO % (test code = 0.5 % 706-2) GRAN MAT x10^3(ANC) 5.78 10*3/uL 1.88-7.09 (test code = [id number]) IMM GRAN x10^3 (test 0.07 10*3/uL 0-0.06 H code = [id number]) LYMPH x10^3 (test code 2.52 10*3/uL 1.32-3.29 = 731-0) MONO x10^3 (test code 0.65 10*3/uL 0.33-0.92 = 742-7) EOS x10^3 (test code = 0.14 10*3/uL 0.03-0.39 711-2) BASO x10^3 (test code 0.05 10*3/uL 0.01-0.07 = 704-7) Lab Interpretation Abnormal (test code = 68398-9) [facility]>14 WEEKS US [id number] 14:51:37Limited USG for presentation: ?Cephalic Chemojeffery Yates MD ?08/10/2020 ?9:51 AMUnH[facility]PO[facility]/O SPECIFIC GRAVITY 2020-08-10 14:35:00 Test [...] code = 3257) n/a Negative - Negative [facility] URINALYSIS W/O SPECIFIC [id number] 16:27:00 Test Item Value Reference Range Interpretation [...] Negative Lab Interpretation (test code = Normal 28702-7) [facility] URINALYSIS W/O SPECIFIC [id number] 14:10:00 Test Item Value Reference Range Interpretation [...] code = 3257) n/a Negative - Negative [facility] URINALYSIS W/O SPECIFIC [id number] 16:50:00 Test Item Value Reference Range Interpretation [...] Negative Lab Interpretation (test code = Normal 14592-8) [facility] WITH [id number] 15:37:00 Test Item Value Reference Range Interpretation [...] (test code = 38.0 fL 39-49.9 L 30305-3) RDW-CV (test code = 12.5 % 12-15.5 788-0) PLT (test code = See_Comment [Automated 777-3) message] The sy stem which generated this result transmitted reference range : 166 - 358 10*3/ ?L. The reference r kevin was not used to interpret this result as normal/abnormal . MPV (test code = 10.0 fL 9.5-12.9 87914-6) NRBC/100 WBC (test See_Comment [Automat ed code = 9030028789) message] The system which generated this result transmitted reference range : 0.0 - 10.0 /100 WBCs. The refer ence range was not u sed to interpret th is result as normal/abnormal . NRBC x10^3 (test code <0.01 See_Comment [Auto mated = [id number]) message] The s ystem which generated this result transmitted reference range : 10*3/?L. The reference range was not used to interpret this result as normal/abnormal . GRAN MAT (NEUT) % 64.0 % (test code = 770-8) IMM GRAN % (test code 0.70 % = 6335760932) LYMPH % (test code = 25.7 % 736-9) MONO % (test code = 7.5 % 5905-5) EOS % (test code = 1.7 % 713-8) BASO % (test code = 0.4 % 706-2) GRAN MAT x10^3(ANC) 5.22 10*3/uL 1.88-7.09 (test code = 3549459689) IMM GRAN x10^3 (test 0.06 10*3/uL 0-0.06 code = 6208089637) LYMPH x10^3 (test code 2.10 10*3/uL 1.32-3.29 = 731-0) MONO x10^3 (test code 0.61 10*3/uL 0.33-0.92 = 742-7) EOS x10^3 (test code = 0.14 10*3/uL 0.03-0.39 711-2) BASO x10^3 (test code 0.03 10*3/uL 0.01-0.07 = 704-7) Lab Interpretation Abnormal (test code = 81804-8) [facility] URINALYSIS W/O SPECIFIC [id number] 16:37:00 Test Item Value Reference Range Interpretation [...] code = 3257) N/A Negative - Negative [facility] URINALYSIS W/O SPECIFIC [id number] 18:39:00 Test Item Value Reference Range Interpretation [...] code = 3257) n/a Negative - Negative [facility] [id number] 13:45:00 Test Item Value Reference Range Interpretation [...] Negative Lab Interpretation (test code = Normal 63030-0) [facility] [id number] 18:11:00 Test Item Value Reference Range Interpretation [...] controls Lab Interpretation Normal (test code = 98209-1) [facility]<14 WEEKS US [id number] 23:17:47Limited USG for dating and viability: ?Single live IUP measured 7 1/7 weeks. ?Will date by this USG unless clinically indicated otherwise Chemo Yates MD ?01/11/2020 ?6:17 PMUnHCA [facility]roeUS OB TRANSVAGINAL 2019-12-24 09:55:03USG for dating as unsure LMP: ?NO gestational sac noted in the uterus. ?Right ovary measured 2.61 x 1.46 cm and left ovary measured 3.16 x 1.18 cm. ?Small amount of free fluid in the cul-de-sac, appeared physiologic. Chemo Yates MD ?12/24/2019 ?3:54 AMUnHCA [facility] Healthcare ConroeHCG, QUANTITATIVE, [id number] 22:50:00 Test Item Value Reference Range Interpretation Comments BETA HCG (test See_Comment [Automated m essage] code = The system [employer] h [id number]) generated this result transmit maye reference range : Non- fe male and male patien ts: <5 mIU/mL. The reference range was not used to interpret this result as normal/abnormal . MARIA GUADALUPE (test code Gestational Age ? ? = MARIA GUADALUPE) ?Range (mIU/mL) 1-10 ?Weeks ?[id number] Weeks ?78501-21938524-04 Weeks ?2545-09980380-21 Weeks ?[id number] Biotin has been reported to cause a negative bias, interpret results relative to patient's use of biotin. [facility] [id number] 15:58:00 Test Item Value Reference Range Interpretation [...] Negative Lab Interpretation (test code = Normal 88578-3) [facility] [id number] 15:58:00 Test Item Value Reference Range Interpretation Comments POCT PREG (test code = 1605) Positive On board controls acceptable with C Yes Line (test code = 3574) POCT PREG LOT # (test code = 3575) POCT PREG TEST DATE (test code = 3576) Lab Interpretation (test code = Normal 01619-2) [facility]
[2023-03-11 10:13] LABS: Absolute Lymphocytes (CBC) 1.5 K/uL (0.7-4.9); Hematocrit 38.1 % (36.0-45.0); Lymphocytes % 15.4 % (15.3-44.8); MCV 82.2 fL (80-100); RBC Red Blood Cell Count 4.63 M/uL (3.86-4.86)
[2023-03-11 10:20] LABS: Specific Gravity 1.005 (1.005-1.030); Urine Bacteria None Seen /HPF (<20); Urine Bilirubin NEGATIVE (Negative); Urine Blood 2+ (Negative); Urine Clarity Clear (Clear); Urine Color Colorless (Yellow); Urine Glucose NEGATIVE (Negative); Urine Protein NEGATIVE (Negative); Urine RBC <5 /HPF (None Seen); Urine Urobilinogen Normal (Normal); Urine pH 6.5 (5.0-7.0)
[2023-03-11 10:29] LABS: Potassium 3.2 mEq/L (3.5-5.1)
--- NOTE | 2023-03-11 10:45 | RAD REPORT ---
EXAM DESCRIPTION: CTStone Protocol - 03/11/2023 10:33 am CLINICAL HISTORY: left flank pain COMPARISON: Abdomen Pelvis W Contrast dated 08/12/2022; Abdomen Pelvis W Contrast dated 6; Abdomen Pelvis W Contrast dated 06/06/2016; CTSTONE PROTOCOL dated 04/04/2015 TECHNIQUE: CT of the abdomen and pelvis was performed. All CT scans are performed using dose optimization technique as appropriate and may include automated exposure control or mA/KV adjustment according to patient size. FINDINGS: Lower chest: No acute abnormality. Liver: No acute abnormality or suspicious lesions. Biliary: No biliary ductal dilatation. Cholecystectomy Stomach: No significant focal abnormality. Duodenum: No significant focal abnormality. Pancreas: No significant abnormality. Spleen: No significant abnormality. Adrenal: No suspicious lesions. Kidney/ureter: No hydronephrosis. No renal calculi. Left ureteral fullness and mild stranding. Retroperitoneum: No retroperitoneal adenopathy. Vascular: No aneurysm. Bowel: No significant focal abnormality. Peritoneum: Small volume of pelvic free fluid. Bladder: Grossly unremarkable. Reproductive: No adnexal masses. Bones: No acute fracture. Other: n/a IMPRESSION: Left ureteral fullness and faint stranding could be secondary to a recently passed stone or ascending urinary tract infection. No hydronephrosis.
--- NOTE | 2023-03-11 11:25 | ER ---
Nurse's Notes [facility] Name: Viki Bright Age: 23 yrs Sex: Female : 2000 Arrival Date: 03/11/2023 Time: 09:16 Bed 10 Private MD: KAMILLE KERNS Diagnosis: Flank pain;Other infectious mononucleosis without complication Presentation: 03/11 09:51 Chief complaint: Patient states: back pain and sore throat. Coronavirus screen: At this iw time, the client does not indicate any symptoms associated with coronavirus-19. Ebola Screen: Patient negative for fever greater than or equal to 101.5 degrees Fahrenheit, and additional compatible Ebola Virus Disease symptoms Patient denies exposure to infectious person. Patient denies travel to an Ebola-affected area in the 21 days before illness onset. No symptoms or risks identified at this time. Initial Sepsis Screen: Does the patient meet any 2 criteria? No. Patient's initial sepsis screen is negative. Does the patient have a suspected source of infection? No. Patient's initial sepsis screen is negative. Risk Assessment: Do you want to hurt yourself or someone else? Patient reports no desire to harm self or others. 09:51 Method Of Arrival: Ambulatory iw 09:51 Acuity: KELSIE 3 iw Triage Assessment: 12:00 General: Appears in no apparent distress. Behavior is calm, cooperative. iw Musculoskeletal: Range of motion: intact in all extremities. Historical: - Allergies: 09:51 No Known Allergies; iw - PMHx: 09:51 Kidney stones; Ovarian cyst; iw - PSHx: 09:51 Cholecystectomy; iw - Immunization history:: Adult Immunizations unknown. - Social history:: Smoking status: unknown. Screenin:12 [facility] ED Fall Risk Assessment (Adult) History of falling in the last 3 months, iw including since admission No falls in past 3 months (0 pts). Abuse screen: Denies threats or abuse. Denies injuries from another. Nutritional screening: No deficits noted. Tuberculosis screening: No symptoms or risk factors identified. Assessment: 11:00 General: Appears in no apparent distress. Behavior is calm, cooperative. General: iw Reports feeling ill for fatigue for. Pain: Complains of pain in throat, body aches. Neuro: Level of Consciousness is awake, alert, obeys commands, Oriented to person, place, time, situation, Moves all extremities. Cardiovascular: Patient's skin is warm and dry. Respiratory: Respiratory effort is even, unlabored, Respiratory pattern is regular, symmetrical. Derm: Skin is intact, is healthy with good turgor. Musculoskeletal: Range of motion: intact in all extremities. Vital Signs: 11:26 BP 124 / 79; Pulse 67; Resp 16; Pulse Ox 98% on R/A; iw ED Course: 09:21 Patient arrived in ED. mr 09:22 KAMILLE KERNS is Private Physician. mr 09:22 Darryn Raphael PA is PHCP. [facility] 09:22 Scar Robbins DO is Attending Physician. [facility] 09:51 Triage completed. iw 10:01 PREGU Sent. em1 10:01 Urinalysis w/ reflexes Sent. em1 10:01 Strep Sent. em1 10:01 [place] Screen Profile Sent. em1 10:01 BMP Sent. em1 10:01 CBC with Diff Sent. em1 10:01 Initial lab(s) drawn, by az, sent to lab. Inserted saline lock: 20 gauge in left em1 antecubital area, using aseptic technique. Blood collected. 10:02 Strep swab sent to lab. em1 10:34 CT Stone Protocol In Process Unspecified. EDMS 11:00 Arm band placed on right wrist. iw 11:00 Patient has correct armband on for positive identification. iw 11:07 Neeru Mann, RN is Primary Nurse. iw 12:12 No provider procedures requiring assistance completed. IV discontinued, intact, iw bleeding controlled, No redness/swelling at site. Pressure dressing applied. Administered Medications: No medications were administered Medication: 11:00 VIS not applicable for this client. iw Outcome: 11:24 Discharge ordered by . hood 12:12 Discharged to home ambulatory. iw 12:12 Condition: good 12:12 Discharge instructions given to patient, Instructed on discharge instructions, follow up and referral plans. Demonstrated understanding of instructions, follow-up care, medications, Prescriptions given X 2. 12:13 Patient left the ED. iw Signatures: Dispatcher [employer] EDMS Darryn Raphael PA PA jmm Rivera, Mary mr Neeru Mann, RN RN iw Ney Crouch em1 Corrections: (The following items were deleted from the chart) 05/16 08:41 05/15 12:12 Discharge instructions given to patient, Instructed on discharge iw instructions, follow up and referral plans. Demonstrated understanding of instructions, follow-up care, iw
--- NOTE | 2023-03-11 11:25 | EDPHYS ---
Physician Documentation [facility] Name: Viki Bright Age: 23 yrs Sex: Female : 2000 Arrival Date: 03/11/2023 Time: 09:16 Bed 10 Private MD: KAMILLE KERNS ED Physician Scar Robbins HPI: 03/11 09:26 This 23 yrs old Female presents to ER via Ambulatory with complaints of Back Pain, Sore jmm Throat. 09:26 The patient presents with pain that is acute. Onset: The symptoms/episode jmm began/occurred gradually. The pain radiates to the abdomen. This is a 23-year-old female with history of kidney stones and ovarian cyst the presents emerged part with complaints of ongoing sore throat for multiple weeks. Also complains of left-sided back pain. Patient states she has been nauseous and had a sore throat. Is having difficulty eating. Denies vomiting or diarrhea. Denies fever. Historical: - Allergies: 09:51 No Known Allergies; iw - PMHx: 09:51 Kidney stones; Ovarian cyst; iw - PSHx: 09:51 Cholecystectomy; iw - Immunization history:: Adult Immunizations unknown. - Social history:: Smoking status: unknown. ROS: 09:26 Constitutional: Negative for fever, chills, and weight loss, Cardiovascular: Negative jmm for chest pain, palpitations, and edema, Respiratory: Negative for shortness of breath, cough, wheezing, and pleuritic chest pain. 09:26 ENT: Positive for sore throat. 09:26 Abdomen/GI: Positive for abdominal pain. 09:26 All other systems are negative. Exam: 09:26 Constitutional: This is a well developed, well nourished patient who is awake, alert, jmm and in no acute distress. Head/Face: atraumatic. Eyes: EOMI, no conjunctival erythema appreciated ENT: Moist Mucus Membranes Neck: Trachea midline, Supple Chest/axilla: Normal chest wall appearance and motion. Cardiovascular: Regular rate and rhythm. No edema appreciated Respiratory: Normal respirations, no respiratory distress appreciated Abdomen/GI: Non distended Back: Normal ROM Skin: General appearance color normal MS/ Extremity: Moves all extremities, no obvious deformities appreciated, no edema noted to the lower extremities Neuro: Awake and alert Psych: Behavior is normal, Mood is normal, Patient is cooperative and pleasant Vital Signs: 11:26 BP 124 / 79; Pulse 67; Resp 16; Pulse Ox 98% on R/A; iw MDM: 09:26 Patient medically screened. [facility] 11:23 Data reviewed: vital signs, nurses notes, lab test result(s), radiologic studies, CT [facility] scan. Consideration of Admission/Observation Escalation of care including admission/observation considered. I considered the following discharge prescriptions or medication management in the emergency department. Counseling: I had a detailed discussion with the patient and/or guardian regarding: the historical points, exam findings, and any diagnostic results supporting the discharge/admit diagnosis, lab results, radiology results, the need for outpatient follow up, to return to the emergency department if symptoms worsen or persist or if there are any questions or concerns that arise at home. 03/11 09:36 Order name: CBC with Diff; Complete Time: 10:23 [facility] 03/11 09:36 Order name: BMP; Complete Time: 10:30 [facility] 03/11 09:36 Order name: [place] Screen Profile; Complete Time: 11:14 [facility] 03/11 09:36 Order name: Strep [facility] 03/11 09:37 Order name: Urinalysis w/ reflexes; Complete Time: 10:20 [facility] 03/11 09:37 Order name: PREGU; Complete Time: 10:21 [facility] 03/11 10:24 Order name: Throat Culture [facility] 03/11 10:21 Order name: CT Stone Protocol; Complete Time: 10:50 [facility] 03/11 09:36 Order name: Saline Lock; Complete Time: 10:01 [facility] Administered Medications: No medications were administered Disposition: 15:07 Co-signature as Attending Physician, Scar Robbins DO Abdulaziz was immediately available on-site ms3 in the Emergency Department for consultation in the care of the patient. Disposition Summary: 03/11/23 11:24 Discharge Ordered Location: Home [facility] Condition: Stable [facility] Diagnosis - Flank pain jmm - Other infectious mononucleosis without complication [facility] Followup: [facility] - With: Private Physician - When: 2 - 3 days - Reason: Recheck today's complaints, Continuance of care, Re-evaluation by your physician Discharge Instructions: - Discharge Summary Sheet [facility] - Infectious Mononucleosis [facility] Forms: - Work release form [facility] - Medication Reconciliation Form [facility] - Thank You Letter briannamarielle - Antibiotic Education [facility] - Prescription Opioid Use [facility] Prescriptions: - ondansetron 4 mg Oral Tablet,disintegrating - take 1 tablet by ORAL route every 4-6 hours As needed as needed for nausea and jmm vomiting; 30 tablet; Refills: 0, Product Selection Permitted - Medrol (Eddi) 4 mg Oral Tablets, Dose Pack - take 1 tablet by ORAL route as directed - follow package instructions; 1 jmm packet; Refills: 0, Product Selection Permitted Signatures: Dispatcher [employer] Darryn Tee PA PA jmm Williams, Irene, RN RN Scar Xavier, DO ms3
[2023-03-11 12:20] VITALS: BP 124/79; O2SAT 98
== END 2023-03-11 12:13 | disposition home or self-care (01) ==
LOC: ER 09:16
DX: B27.90 Infectious mononucleosis, unspecified without complication (principal); R10.9 Unspecified abdominal pain
CPT/HCPCS: 36415; 74176; 76377; 80048; 81001; 81025; 85025; 86308; 87070; 87081; 99284

== ENCOUNTER 2023-06-30 05:46 | Observation (INO) | payer OTHER ==
--- OUTSIDE RECORDS SUMMARY | 2023-06-30 05:51 | XMS REPORT | Continuity of Care Document ---
:2000 Author Organization [facility] t Address [address] [place] [address] [place] [id number] Care Team Providers Name Role Phone PCP, PATIENT DOES NOT HAVE A Primary Care Physician Unavaila BO Correa Attending Clinician Unavailable RADIOLOGY Attending Clinician Unavailable Radiology Attending Clinician Unavailable Lab, [facility] Attending Clinician Unavailable EbAylin Connor Attending Clinician AYLIN FIGUEROA Attending Clinician Unavailable SOPHIA HAERD Attending Clinician Unavailable Nurse, [facility] Attending Clinician Unavailable Sophia Heard PA-C Attending Clinician Chemo Yates MD Attending Clinician Radha Monroy Attending Clinician Doctor Unassigned, [facility] Attending Clinician Unavailable CHEMO YATES Attending Clinician [...] Effective Date Expiration Date Zach ESTES POS [id number] 2018 II 00:00:00 [place] [facility] [id number] 2019 HEALTH 00:00:00 [place]ID OF [place] [id number] 2019 00:00:00 Problems Condition Condition Condition Status Onset Resolution Last Treating Co mments Source Name Details Category Date Date Treatment Clinician Date 39 weeks 39 weeks Disease Active 2019-10 Unive rs gestation gestation 0-26 ity of of of 00:00: [place] [address] [facility] Anemia, Anemia, Disease Active 2020 Univers antepartum antepartum 0-26 it y of , third , third 00:00: [place] trimester trimester [address] [facility] Liveborn Liveborn Disease Active 2019-10 Unive rs infant, of , of 0-26 [place] y [place] t[place] , , 00 [place] d[place] born in born in [facility] hospital by vaginal by vaginal delivery delivery Vacuum-ass Vacuum-ass Disease Active 2019-10 U nivers isted isted 0-26 ity of vaginal vaginal 00:00: [place] delivery delivery 00 [facility] Obesity Obesity Disease Active 2020- Univers (BMI (BMI 8-21 ity of 30-39.9) 30-39.9) 00:00: [address] Supervisio Supervisio Disease Active 2020-0 U nivers n of n of 3-16 it[place] of high-risk high-risk 00:[place] [facility] with with Branch history of history [...] 2-27 it y of anatomic anatomic 00:00: [place] location location 00 [facility] Allergies, Adverse Reactions, Alerts Allergy Allergy Status Severity Reaction(s) Onset Inactive Treating Comm ents Source Name Type Date Date Clinician NO KNOWN Drug Active Univers ALLERGIE Class ity of S [facility] Social History Social Habit Start Date Stop Date Quantity Comments Source ASSERTION 2019-12-06 [facility] 00:00:00 [facility] Exposure to Yes University of SARS-CoV-2 [facility] (event) [place] Alcohol intake 2020-09-15 2020-09-15 Ex-drinker [facility] 00:00:00 00:00:00 (finding) [facility] Tobacco use and 2019-12-23 2019-12-23 Smokeless tobacco Un iversity of exposure 00:00:00 00:00:00 non-user [facility] Sex Assigned At 2000 2000 Universit y of 00:00:00 00:00:00 [facility] Smoking Status Start Date Stop Date Source Never smoked tobacco [facility] Medications Ordered Filled Start Stop Current Ordering Indication Dosage Frequency Signature Comments Components Source Medication Medication Date Date Medication? Clinician (SIG) Name Name medroxyPROG 2020- No [id number] 150mg Univers ESTERone 02-16 ity of (DEPO-PROVE 16:45: 15:20 [place] RA) syringe 00 :00 Medical 150 mg Branch medroxyPROG 2020- No [id number] 150mg 150 mg, Univers ESTERone 02-16 Intramuscu [...] mg 08/23/20 at 1015, Routine 2019-10 Yes [id number] 1{tbl} Take 1 Univers vitamin 0-27 [id number] tablet by ity o f w/FA tablet 00:00: mouth [place] 00 daily. Medical Branch docusate 2019-10 Yes [id number] 240mg Take 1 Univers calcium 240 0-27 [id number] capsule by ity of mg capsule 00:00: mouth [place] 00 daily as Medical needed for Branch Constipati on. ferrous 2019-10 Yes [id number] 325mg Take 1 Univers sulfate 325 0-27 [id number] tablet by i ty of mg (65 mg 00:00: mouth 2 [place] iron) 00 (two) Medical tablet times Branch daily. ibuprofen 2019-10 Yes [id number] 600mg Take 1 Univers 600 mg 0-27 [id number] tablet by ity of tablet 00:00: mouth [place] 00 every 6 Medical (six) Branch hours as needed for Pain (scale 1-3) or Pain (scale 4-6) (Pain). Take with food or milk. 2019-10 Yes [id number] 1{tbl} Take 1 Univers vitamin 0-27 [id number] tablet by ity o f w/FA tablet 00:00: mouth [place] 00 daily. Medical Branch docusate 2019-10 Yes [id number] 240mg Take 1 Univers calcium 240 0-27 [id number] capsule by ity of mg capsule 00:00: mouth once [place] 00 daily as Medical needed for Branch Constipati on. ferrous 2019-10 Yes [id number] 325mg Take 1 Univers sulfate 325 0-27 [id number] tablet by i ty of mg (65 mg 00:00: mouth 2 [place] iron) 00 (two) Medical tablet times Branch daily. ibuprofen 2019-10 Yes [id number] 600mg Take 1 Univers 600 mg 0-27 [id number] tablet by ity of tablet 00:00: mouth [place] 00 every 6 Medical (six) Branch hours as needed for Pain (scale 1-3) or Pain (scale 4-6) (Pain). Take with food or milk. 2019-10 Yes [id number] 1{tbl} Take 1 Univers vitamin 0-27 [id number] tablet by ity o f w/FA tablet 00:00: mouth [place] 00 daily. Medical Branch docusate 2019-10 Yes [id number] 240mg Take 1 Univers calcium 240 0-27 [id number] capsule by ity of mg capsule 00:00: mouth once [place] 00 daily as Medical needed for Branch Constipati on. ferrous 2019-10 Yes [id number] 325mg Take 1 Univers sulfate 325 0-27 [id number] tablet by i ty of mg (65 mg 00:00: mouth 2 [place] iron) 00 (two) Medical tablet times Branch daily. ibuprofen 2019-10 Yes [id number] 600mg Take 1 Univers 600 mg 0-27 [id number] tablet by ity of tablet 00:00: mouth [place] 00 every 6 Medical (six) Branch hours as needed for Pain (scale 1-3) or Pain (scale 4-6) (Pain). Take with food or milk. 2019-10 Yes [id number] 1{tbl} Take 1 Univers vitamin 0-27 [id number] tablet by ity o f w/FA tablet 00:00: mouth [place] 00 daily. Medical Branch docusate 2019-10 Yes [id number] 240mg Take 1 Univers calcium 240 0-27 [id number] capsule by ity of mg capsule 00:00: mouth once [place] 00 daily as Medical needed for Branch Constipati on. ferrous 2019-10 Yes [id number] 325mg Take 1 Univers sulfate 325 0-27 [id number] tablet by i ty of mg (65 mg 00:00: mouth 2 [place] iron) 00 (two) Medical tablet times Branch daily. ibuprofen 2019-10 Yes [id number] 600mg Take 1 Univers 600 mg 0-27 [id number] tablet by ity of tablet 00:00: mouth [place] 00 every 6 Medical (six) Branch hours as needed for Pain (scale 1-3) or Pain (scale 4-6) (Pain). Take with food or milk. 2019-10 Yes [id number] 1{tbl} Take 1 Univers vitamin 0-27 [id number] tablet by ity o f w/FA tablet 00:00: mouth [place] 00 daily. Medical Branch docusate 2019-10 Yes [id number] 240mg Take 1 Univers calcium 240 0-27 [id number] capsule by ity of mg capsule 00:00: mouth once [place] 00 daily as Medical needed for Branch Constipati on. ferrous 2019-10 Yes [id number] 325mg Take 1 Univers sulfate 325 0-27 [id number] tablet by i ty of mg (65 mg 00:00: mouth 2 [place] iron) 00 (two) Medical tablet times Branch daily. ibuprofen 2019-10 Yes [id number] 600mg Take 1 Univers 600 mg 0-27 [id number] tablet by ity of tablet 00:00: mouth [place] 00 every 6 Medical (six) Branch hours as needed for Pain (scale 1-3) or Pain (scale 4-6) (Pain). Take with food or milk. 2019-10 Yes [id number] 1{tbl} Take 1 Univers vitamin 0-27 [id number] tablet by ity o f w/FA tablet 00:00: mouth [place] 00 daily. Medical Branch docusate 2019-10 Yes [id number] 240mg Take 1 Univers calcium 240 0-27 [id number] capsule by ity of mg capsule 00:00: mouth once [place] 00 daily as Medical needed for Branch Constipati on. ferrous 2019-10 Yes [id number] 325mg Take 1 Univers sulfate 325 0-27 [id number] tablet by i ty of mg (65 mg 00:00: mouth 2 [place] iron) 00 (two) Medical tablet times Branch daily. ibuprofen 2019-10 Yes [id number] 600mg Take 1 Univers 600 mg 0-27 [id number] tablet by ity of tablet 00:00: mouth [place] 00 every 6 Medical (six) Branch hours as needed for Pain (scale 1-3) or Pain (scale 4-6) (Pain). Take with food or milk. ferrous 2019-10 Yes [id number] 325mg Take 1 Univers sulfate 325 0-27 [id number] tablet by i ty of mg (65 mg 00:00: mouth 2 [place] iron) 00 (two) Medical tablet times Branch daily. ferrous 2019-10 Yes [id number] 325mg Take 1 Univers sulfate 325 0-27 [id number] tablet by i ty of mg (65 mg 00:00: mouth 2 [place] iron) 00 (two) Medical tablet times Branch daily. ferrous 2019-10 Yes [id number] 325mg Take 1 Univers sulfate 325 0-27 [id number] tablet by i ty of mg (65 mg 00:00: mouth 2 [place] iron) 00 (two) Medical tablet times Branch daily. 2019-10- No [id number] 1{tbl} Take 1 Univers vitamin 0-27 04-22 [id number] tablet by ity of w/FA tablet 00:00: 00:00 mouth [place] 00 :00 daily. Medical Branch docusate 2019-10- No [id number] 240mg Take 1 Univers calcium 240 02-16 [id number] capsule by ity of mg capsule 00:00: 00:00 mouth once [place] 00 :00 daily as Medical needed for Branch Constipati on. ibuprofen 2019-10- No [id number] 600mg Take 1 Univers 600 mg 02-16 [id number] tablet by ity o f tablet 00:00: [...] Q6HPRN, [place] mg 18 Starting Medical [facility] Branch 08/22/20 at 1739, Until Discontinu ed, Routine, Pain (scale 4-6) acetaminoph 2019-10 Yes 650mg 650 mg, Un maxine en 0-26 Oral, ity of (TYLENOL) 22:39: Q6HPRN, [place] tablet 650 [address] Starting [address] [facility] 08/22/20 at 1739, Until Discontinu ed, Routine, Pain (scale 1-3) diphenhydrA 2019-10 Yes 25mg 25 mg, Univ ers MINE 0-26 Oral, ity of (BENADRYL) 22:39: Q6HPRN, [place] tablet 25 [address] [facility] 08/22/20 at 1739, Until Discontinu ed, Routine, Sleep, Itching docusate 2019-10 Yes 240mg 240 mg, Unive rs calcium 0-26 Oral, ity of (SURFAK) 22:39: QDAILYPRN, [place] capsule 240 [address] [facility] 08/22/20 at 1739, Until Discontinu ed, [...] of 40 Units in 22:30: 20:43 Infusion, [place] lactated 00 :00 ONCE, 1 Medical ringers dose, [facility] 1,000 mL IV 08/22/20 infusion at 1730, Routine oxytocin 2019-10 2020- No 10U 10 Units, Uni vers (PITOCIN) 0-26 10-26 Intramuscu ity of injection 20:45: 20:39 lar, ONCE, [place] 10 Units 00 :00 1 dose, Medical [facility] 08/22/20 at 1545, Routine D5W-LR IV 2019-10 2020- No 1000mL at 125 Uni vers infusion 0-26 10-26 mL/hr, IV ity o f 1,000 mL 09:15: 22:39 Infusion, [place] as 00 :38 CONTINUOUS Medical , Starting Branch [facility] 08/22/20 at 0415, Until Sat08/22/20 at 1739, Routine FENTanyl PF 2019-10 2020- No 100ug 100 mcg, Univers (SUBLIMAZE 0-26 10-26 Slow IV ity o f (PF)) 09:07: 22:39 Push, [place] injection 32 :38 Q1HPRN, Medical 100 mcg Starting Branch [facility] 08/22/20 at 0407, Until Sat08/22/20 at 1739, Routine, contractio n pain without an epidural and SVE < 8 cm and Cat I strip LR 1000 mL 2019-10 2020- No 2mU/min at 6-120 Univers + oxytocin 0-26 10-26 mL/hr, IV ity of 20 units IV 09:07: 22:39 Infusion, [place] Solution 32 :38 TITRATE, Medical Starting Branch [facility] 08/22/20 at 0407, Until Sat08/22/20 at 173, FARHEEN lactated 2019-10 2020- No 500mL at 999 Unive rs ringers IV 0-26 10-26 mL/hr, 500 it y of infusion 09:07: 22:39 mL, IV [place] 500 mL 32 :38 Infusion, Medical PRN - SEE Branch INSTRUCTIO NS, Starting Sat08/22/20 at 0407, Until Sat08/22/20 at 1739, Routine famotidine 2020-0 Yes [id number] 20mg Take 1 Univers 20 mg 8-24 tablet by ity of tablet 00:00: mouth 2 [place] (two) Medical times [place] daily. famotidine 2020-0 Yes [id number] 20mg Take 1 Univers 20 mg 8-24 tablet by ity of tablet 00:00: mouth 2 [place] (two) Medical times [place] daily. famotidine 2020-0 Yes [id number] 20mg Take 1 Univers 20 mg 8-24 tablet by ity of tablet 00:00: mouth 2 [place] (two) Medical times [place] daily. famotidine 2020-0 Yes [id number] 20mg Take 1 Univers 20 mg 8-24 tablet by ity of tablet 00:00: mouth 2 [place] (two) Medical times Branch daily. famotidine 2020-0 Yes [id number] 20mg Take 1 Univers 20 mg 8-24 tablet by ity of tablet 00:00: mouth [place] (two) Medical times Branch daily. famotidine 2020-0 Yes [id number] 20mg Take 1 Univers 20 mg 8-24 tablet by ity of tablet 00:00: mouth (two) Medical times Branch daily. famotidine 2020-0 Yes [id number] 20mg Take 1 Univers 20 mg 8-24 tablet by ity of tablet 00:00: mouth [place] (two) Medical times Branch daily. famotidine 2020-0 Yes [id number] 20mg Take 1 Univers 20 mg 8-24 tablet by ity of tablet 00:00: mouth [place] (two) Medical times Branch daily. famotidine 2020-0 Yes [id number] 20mg Take 1 Univers 20 mg 8-24 tablet by ity of tablet 00:00: mouth [place] (two) Medical times Branch daily. famotidine 2020-0 Yes [id number] 20mg Take 1 Univers 20 mg 8-24 tablet by ity of tablet 00:00: mouth [place] (two) Medical times Branch daily. famotidine 2020-0 Yes [id number] 20mg Take 1 Univers 20 mg 8-24 tablet by ity of tablet 00:00: [facility] [place] (two) Medical times Branch daily. famotidine 2020-0 Yes [id number] 20mg Take 1 Univers 20 mg 8-24 tablet by ity of tablet 00:00: [facility] [place] (two) Medical times Branch daily. famotidine 2020-0 Yes [id number] 20mg Take 1 Univers 20 mg 8-24 tablet by ity of tablet 00:00: mouth [place] (two) Medical times Branch daily. famotidine 2020-0 Yes [id number] 20mg Take 1 Univers 20 mg 8-24 tablet by ity of tablet 00:00: mouth [place] (two) Medical times Branch daily. famotidine 2020-0 Yes [id number] 20mg Take 1 Univers 20 mg 8-24 tablet by ity of tablet 00:00: mouth [place] (two) Medical times Branch daily. famotidine 2020-0 Yes [id number] 20mg Take 1 Univers 20 mg 8-24 tablet by ity of tablet 00:00: mouth 2 [place] 00 (two) Medical times Branch daily. famotidine 2020-0 2020- No [id number] 20mg Take 1 Univers 20 mg 8-24 10-27 tablet by ity of tablet 00:00: 00:00 mouth 2 [place] 00 :00 (two) Medical times Branch daily. proMETHazin 2020-0 Yes [id number] 12.5mg Take 1 Univers e 12.5 mg 8-07 tablet by ity o f tablet 00:00: mouth [place] 00 every 4 Medical (four) Branch hours as needed for Nausea and Vomiting (N/V). proMETHazin 2020-0 Yes [id number] 12.5mg Take 1 Univers e 12.5 mg 8-07 tablet by ity o f tablet 00:00: mouth [place] 00 every 4 Medical (four) Branch hours as needed for Nausea and Vomiting (N/V). proMETHazin 2020-0 Yes [id number] 12.5mg Take 1 Univers e 12.5 mg 8-07 tablet by ity o f tablet 00:00: mouth [place] 00 every 4 Medical (four) Branch hours as needed for Nausea and Vomiting (N/V). proMETHazin 2020-0 Yes [id number] 12.5mg Take 1 Univers e 12.5 mg 8-07 tablet by ity o f tablet 00:00: mouth [place] 00 every 4 Medical (four) Branch hours as needed for Nausea and Vomiting (N/V). proMETHazin 2020-0 Yes [id number] 12.5mg Take 1 Univers e 12.5 mg 8-07 tablet by ity o f tablet 00:00: mouth [place] 00 every 4 Medical (four) Branch hours as needed for Nausea and Vomiting (N/V). proMETHazin 2020-0 Yes [id number] 12.5mg Take 1 Univers e 12.5 mg 8-07 tablet by ity o f tablet 00:00: mouth [place] 00 every 4 Medical (four) Branch hours as needed for Nausea and Vomiting (N/V). proMETHazin 2020-0 Yes [id number] 12.5mg Take 1 Univers e 12.5 mg 8-07 tablet by ity o f tablet 00:00: mouth [place] 00 every 4 Medical (four) Branch hours as needed for Nausea and Vomiting (N/V). proMETHazin 2020-0 Yes [id number] 12.5mg Take 1 Univers e 12.5 mg 8-07 tablet by ity o f tablet 00:00: mouth [place] 00 every 4 Medical (four) Branch hours as needed for Nausea and Vomiting (N/V). proMETHazin 2020-0 Yes [id number] 12.5mg Take 1 Univers e 12.5 mg 8-07 tablet by ity o f tablet 00:00: mouth [place] 00 every 4 Medical (four) Branch hours as needed for Nausea and Vomiting (N/V). proMETHazin 2020-0 Yes [id number] 12.5mg Take 1 Univers e 12.5 mg 8-07 tablet by ity o f tablet 00:00: mouth [place] 00 every 4 Medical (four) Branch hours as needed for Nausea and Vomiting (N/V). proMETHazin 2020-0 Yes [id number] 12.5mg Take 1 Univers e 12.5 mg 8-07 tablet by ity o f tablet 00:00: mouth [place] 00 every 4 Medical (four) Branch hours as needed for Nausea and Vomiting (N/V). proMETHazin 2020-0 Yes [id number] 12.5mg Take 1 Univers e 12.5 mg 8-07 tablet by ity o f tablet 00:00: mouth [place] 00 every 4 Medical (four) Branch hours as needed for Nausea and Vomiting (N/V). proMETHazin 2020-0 Yes [id number] 12.5mg Take 1 Univers e 12.5 mg 8-07 tablet by ity o f tablet 00:00: mouth [place] 00 every 4 Medical (four) Branch hours as needed for Nausea and Vomiting (N/V). proMETHazin 2020-0 Yes [id number] 12.5mg Take 1 Univers e 12.5 mg 8-07 tablet by ity o f tablet 00:00: mouth [place] 00 every 4 Medical (four) Branch hours as needed for Nausea and Vomiting (N/V). proMETHazin 2020-0 Yes [id number] 12.5mg Take 1 Univers e 12.5 mg 8-07 tablet by ity o f tablet 00:00: mouth [place] 00 every 4 Medical (four) Branch hours as needed for Nausea and Vomiting (N/V). proMETHazin 2020-0 Yes [id number] 12.5mg Take 1 Univers e 12.5 mg 8-07 tablet by ity o f tablet 00:00: mouth [place] 00 every 4 Medical (four) Branch hours as needed for Nausea and Vomiting (N/V). proMETHazin 2020-0 Yes [id number] 12.5mg Take 1 Univers e 12.5 mg 8-07 tablet by ity o f tablet 00:00: mouth [place] 00 every 4 Medical (four) Branch hours as needed for Nausea and Vomiting (N/V). proMETHazin 2020-0 Yes [id number] 12.5mg Take 1 Univers e 12.5 mg 8-07 tablet by ity o f tablet 00:00: mouth [place] 00 every 4 Medical (four) Branch hours as needed for Nausea and Vomiting (N/V). proMETHazin 2020-0 Yes [id number] 12.5mg Take 1 Univers e 12.5 mg 8-07 tablet by ity o f tablet 00:00: mouth [place] 00 every 4 Medical (four) Branch hours as needed for Nausea and Vomiting (N/V). proMETHazin 2020-0 2020- No [id number] 12.5mg Take 1 Univers e 12.5 mg 8-07 10-27 tablet by ity of tablet 00:00: 00:00 mouth [place] 00 :00 every 4 Medical (four) Branch hours as needed for Nausea and Vomiting (N/V). PNV 2020-0 Yes [id number] Take 1 Univer s 102-iron-fo 2-27 TAB-CAP/M2 it y of late 00:00: by mouth [place] 1-dss-dha 00 daily. Medical (VITAFOL Branch FE+, WITH DOCUSATE,) 90 mg iron-1 mg -50 mg-200 mg Cap PNV 2020-0 Yes [id number] Take 1 Univer s 102-iron-fo 2-27 TAB-CAP/M2 it y of late 00:00: by mouth [place] 1-dss-dha 00 daily. Medical (VITAFOL Branch FE+, WITH DOCUSATE,) 90 mg iron-1 mg -50 mg-200 mg Cap PNV 2020-0 Yes [id number] Take 1 Univer s 102-iron-fo 2-27 TAB-CAP/M2 it y of late 00:00: by mouth [place] 1-dss-dha 00 daily. Medical (VITAFOL Branch FE+, WITH DOCUSATE,) 90 mg iron-1 mg -50 mg-200 mg Cap PNV 2020-0 Yes [id number] Take 1 Univer s 102-iron-fo 2-27 TAB-CAP/M2 it y of late 00:00: by mouth [address] 00 daily. Medical (VITAFOL Branch FE+, WITH DOCUSATE,) 90 mg iron-1 mg -50 mg-200 mg Cap PNV 2020-0 Yes [id number] Take 1 Univer s 102-iron-fo 2-27 TAB-CAP/M2 it y of late 00:00: by mouth [address] 00 daily. Medical (VITAFOL Branch FE+, WITH DOCUSATE,) 90 mg iron-1 mg -50 mg-200 mg Cap PNV 2020-0 Yes [id number] Take 1 Univer s 102-iron-fo 2-27 TAB-CAP/M2 it y of late 00:00: by mouth [address] 00 daily. Medical (VITAFOL Branch FE+, WITH DOCUSATE,) 90 mg iron-1 mg -50 mg-200 mg Cap PNV 2020-0 Yes [id number] Take 1 Univer s 102-iron-fo 2-27 TAB-CAP/M2 it y of late 00:00: by mouth [address] daily. Medical (VITAFOL Branch FE+, WITH DOCUSATE,) 90 mg iron-1 mg -50 mg-200 mg Cap PNV 2020-0 Yes [id number] Take 1 Univer s 102-iron-fo 2-27 TAB-CAP/M2 it y of late 00:00: by mouth [address] 00 daily. Medical (VITAFOL Branch FE+, WITH DOCUSATE,) 90 mg iron-1 mg -50 mg-200 mg Cap PNV 2020-0 Yes [id number] Take 1 Univer s 102-iron-fo 2-27 TAB-CAP/M2 it y of late 00:00: by mouth [address] 00 daily. Medical (VITAFOL Branch FE+, WITH DOCUSATE,) 90 mg iron-1 mg -50 mg-200 mg Cap PNV 2020-0 Yes [id number] Take 1 Univer s 102-iron-fo 2-27 TAB-CAP/M2 it y of late 00:00: by mouth [address] 00 daily. Medical (VITAFOL Branch FE+, WITH DOCUSATE,) 90 mg iron-1 mg -50 mg-200 mg Cap PNV 2020-0 Yes [id number] Take 1 Univer s 102-iron-fo 2-27 TAB-CAP/M2 it y of late 00:00: by mouth [address] 00 daily. Medical (VITAFOL Branch FE+, WITH DOCUSATE,) 90 mg iron-1 mg -50 mg-200 mg Cap PNV 2020-0 Yes [id number] Take 1 Univer s 102-iron-fo 2-27 TAB-CAP/M2 it y of late 00:00: by mouth [address] daily. Medical (VITAFOL Branch FE+, WITH DOCUSATE,) 90 mg iron-1 mg -50 mg-200 mg Cap PNV 2020-0 Yes [id number] Take 1 Univer s 102-iron-fo 2-27 TAB-CAP/M2 it y of late 00:00: by mouth [address] daily. Medical (VITAFOL Branch FE+, WITH DOCUSATE,) 90 mg iron-1 mg -50 mg-200 mg Cap PNV 2020-0 Yes [id number] Take 1 Univer s 102-iron-fo 2-27 TAB-CAP/M2 it y of late 00:00: by mouth [address] daily. Medical (VITAFOL Branch FE+, WITH DOCUSATE,) 90 mg iron-1 mg -50 mg-200 mg Cap PNV 2020-0 Yes [id number] Take 1 Univer s 102-iron-fo 2-27 TAB-CAP/M2 it y of late 00:00: by mouth [address] daily. Medical (VITAFOL Branch FE+, WITH DOCUSATE,) 90 mg iron-1 mg -50 mg-200 mg Cap PNV 2020-0 Yes [id number] Take 1 Univer s 102-iron-fo 2-27 TAB-CAP/M2 it y of late 00:00: by mouth [address] 00 daily. Medical (VITAFOL Branch FE+, WITH DOCUSATE,) 90 mg iron-1 mg -50 mg-200 mg Cap PNV 2020-0 Yes [id number] Take 1 Univer s 102-iron-fo 2-27 TAB-CAP/M2 it y of late 00:00: by mouth [place] [address] 00 daily. Medical (VITAFOL Branch FE+, WITH DOCUSATE,) 90 mg iron-1 mg -50 mg-200 mg Cap PNV 2020-0 Yes [id number] Take 1 Univer s 102-iron-fo 2-27 TAB-CAP/M2 it y of late 00:00: by mouth [place] [address]-dss-dha 00 daily. Medical (VITAFOL Branch FE+, WITH DOCUSATE,) 90 mg iron-1 mg -50 mg-200 mg Cap PNV 2020-0 Yes [id number] Take 1 Univer s 102-iron-fo 2-27 TAB-CAP/M2 it y of late 00:00: by mouth [place] [address]-dss-dha 00 daily. Medical (VITAFOL Branch FE+, WITH DOCUSATE,) 90 mg iron-1 mg -50 mg-200 mg Cap PNV 2020-0 Yes [id number] Take 1 Univer s 102-iron-fo 2-27 TAB-CAP/M2 it y of late 00:00: by mouth [place] [address] 00 daily. Medical (VITAFOL Branch FE+, WITH DOCUSATE,) 90 mg iron-1 mg -50 mg-200 mg Cap PNV 2020-0 Yes [id number] Take 1 Univer s 102-iron-fo 2-27 TAB-CAP/M2 it y of late 00:00: by mouth [place] [address]-dss-dha 00 daily. Medical (VITAFOL Branch FE+, WITH DOCUSATE,) 90 mg iron-1 mg -50 mg-200 mg Cap PNV 2020-0 Yes [id number] Take 1 Univer s 102-iron-fo 2-27 TAB-CAP/M2 it y of late 00:00: by mouth [place] [address] 00 daily. Medical (VITAFOL Branch FE+, WITH DOCUSATE,) 90 mg iron-1 mg -50 mg-200 mg Cap PNV 2020-0 Yes [id number] Take 1 Univer s 102-iron-fo 2-27 TAB-CAP/M2 it y of late 00:00: by mouth [place] [address]-dss-dha 00 daily. Medical (VITAFOL Branch FE+, WITH DOCUSATE,) 90 mg iron-1 mg -50 mg-200 mg Cap PNV 2020-0 Yes [id number] Take 1 Univer s 102-iron-fo 2-27 TAB-CAP/M2 it y of late 00:00: by mouth [address] 00 daily. Medical (VITAFOL Branch FE+, WITH DOCUSATE,) 90 mg iron-1 mg -50 mg-200 mg Cap PNV 2020-0 Yes [id number] Take 1 Univer s 102-iron-fo 2-27 TAB-CAP/M2 it y of late 00:00: by mouth [address] 00 daily. Medical (VITAFOL Branch FE+, WITH DOCUSATE,) 90 mg iron-1 mg -50 mg-200 mg Cap PNV 2020-0 Yes [id number] Take 1 Univer s 102-iron-fo 2-27 TAB-CAP/M2 it y of late 00:00: by mouth [address] 00 daily. Medical (VITAFOL Branch FE+, WITH DOCUSATE,) 90 mg iron-1 mg -50 mg-200 mg Cap PNV 2020-0 Yes [id number] Take 1 Univer s 102-iron-fo 2-27 TAB-CAP/M2 it y of late 00:00: by mouth [address] daily. Medical (VITAFOL Branch FE+, WITH DOCUSATE,) 90 mg iron-1 mg -50 mg-200 mg Cap PNV 2020-0 Yes [id number] Take 1 Univer s 102-iron-fo 2-27 TAB-CAP/M2 it y of late 00:00: by mouth [address] 00 daily. Medical (VITAFOL Branch FE+, WITH DOCUSATE,) 90 mg iron-1 mg -50 mg-200 mg Cap PNV 2020-0 Yes [id number] Take 1 Univer s 102-iron-fo 2-27 TAB-CAP/M2 it y of late 00:00: by mouth [address] 00 daily. Medical (VITAFOL Branch FE+, WITH DOCUSATE,) 90 mg iron-1 mg -50 mg-200 mg Cap PNV 2020-0 Yes [id number] Take 1 Univer s 102-iron-fo 2-27 TAB-CAP/M2 it y of late 00:00: by mouth [address] 00 daily. Medical (VITAFOL Branch FE+, WITH DOCUSATE,) 90 mg iron-1 mg -50 mg-200 mg Cap PNV 2020-0 Yes [id number] Take 1 Univer s 102-iron-fo 2-27 TAB-CAP/M2 it y of late 00:00: by mouth [address] 00 daily. Medical (VITAFOL Branch FE+, WITH DOCUSATE,) 90 mg iron-1 mg -50 mg-200 mg Cap PNV 2020-0 Yes [id number] Take 1 Univer s 102-iron-fo 2-27 TAB-CAP/M2 it y of late 00:00: by mouth [address] daily. Medical (VITAFOL Branch FE+, WITH DOCUSATE,) 90 mg iron-1 mg -50 mg-200 mg Cap PNV 2020-0 Yes [id number] Take 1 Univer s 102-iron-fo 2-27 TAB-CAP/M2 it y of late 00:00: by mouth [address] daily. Medical (VITAFOL Branch FE+, WITH DOCUSATE,) 90 mg iron-1 mg -50 mg-200 mg Cap PNV 2020-0 Yes [id number] Take 1 Univer s 102-iron-fo 2-27 TAB-CAP/M2 it y of late 00:00: by mouth [address] daily[address] Medical (VITAFOL Branch FE+, WITH DOCUSATE,) 90 mg iron-1 mg -50 mg-200 mg Cap PNV 2020-0 Yes [id number] Take 1 Univer s 102-iron-fo 2-27 TAB-CAP/M2 it y of late 00:00: by mouth [address] daily[address] Medical (VITAFOL Branch FE+, WITH DOCUSATE,) 90 mg iron-1 mg -50 mg-200 mg Cap PNV 2020-0 Yes [id number] Take 1 Univer s 102-iron-fo 2-27 TAB-CAP/M2 it y of late 00:00: by mouth [address] 00 daily. Medical (VITAFOL Branch FE+, WITH DOCUSATE,) 90 mg iron-1 mg -50 mg-200 mg Cap PNV 2020-0 Yes [id number] Take 1 Univer s 102-iron-fo 2-27 TAB-CAP/M2 it y of late 00:00: by mouth [place] 1-dss-dha 00 daily. Medical (VITAFOL Branch FE+, WITH DOCUSATE,) 90 mg iron-1 mg -50 mg-200 mg Cap PNV 2020-0 Yes [id number] Take 1 Univer s 102-iron-fo 2-27 TAB-CAP/M2 it y of late 00:00: by mouth [place] 1-dss-dha 00 daily. Medical (VITAFOL Branch FE+, WITH DOCUSATE,) 90 mg iron-1 mg -50 mg-200 mg Cap PNV 2020-0 Yes [id number] Take 1 Univer s 102-iron-fo 2-27 TAB-CAP/M2 it y of late 00:00: by mouth [place] 1-dss-dha 00 daily. Medical (VITAFOL Branch FE+, WITH DOCUSATE,) 90 mg iron-1 mg -50 mg-200 mg Cap PNV 2020-0 Yes [id number] Take 1 Univer s 102-iron-fo 2-27 TAB-CAP/M2 it y of late 00:00: by mouth [place] 1-dss-dha 00 daily. Medical (VITAFOL Branch FE+, WITH DOCUSATE,) 90 mg iron-1 mg -50 mg-200 mg Cap PNV 2020-0 Yes [id number] Take 1 Univer s 102-iron-fo 2-27 TAB-CAP/M2 it y of late 00:00: by mouth [place] 1-dss-dha 00 daily. Medical (VITAFOL Branch FE+, WITH DOCUSATE,) 90 mg iron-1 mg -50 mg-200 mg Cap PNV 2020-0 Yes [id number] Take 1 Univer s 102-iron-fo 2-27 TAB-CAP/M2 it y of late 00:00: by mouth [place] [address]-dss-dha 00 daily. Medical (VITAFOL Branch FE+, WITH DOCUSATE,) 90 mg iron-1 mg -50 mg-200 mg Cap PNV 2020-0 2020- No [id number] Take 1 Unive rs 102-iron-fo 2-27 10-27 [...] Immunizations Ordered Filled Immunization Date Status Comments [facility] e Immunization Name Name Influenza Virus 2020-07-28 Completed Universit y of Vaccine Quad .5 mL 00:00:00 [place] [facility] IM 6+ MO Branch Influenza Virus 2020-07-28 Completed Universit y of Vaccine [facility] .5 mL 00:00:00 [facility] IM 6+ MO Branch Influenza Virus 2020-07-28 Completed Universit y of Vaccine [facility] .5 mL 00:00:00 [place] [facility] IM 6+ MO Branch Influenza Virus 2020-07-28 Completed Universit y of [facility] .5 mL 00:00:00 [place] [facility] IM 6+ MO Branch Influenza Virus 2020-07-28 Completed Universit y of [facility] .5 mL 00:00:00 [place] [facility] IM 6+ MO Branch Influenza Virus 2020-07-28 Completed Universit y of [facility] .5 mL 00:00:00 [place] [facility] IM 6+ MO Branch Influenza Virus 2020-07-28 Completed Universit y of [facility] .5 mL 00:00:00 [place] [facility] 6+ MO Branch Influenza Virus 2020-07-28 [...] y of Vaccine Quad .5 mL 00:00:00 [place] [facility] 6+ MO Branch TDAP 2020-06-03 Completed University of 00:00:00 [place] [facility] Jeff TDAP 2020-06-03 Completed University of 00:00:00 [place] [facility] TDAP 2020-06-03 Completed University of 00:00:00 [place] [facility] TDAP 2020-06-03 Completed University of 00:00:00 [place] [facility] TDAP 2020-06-03 Completed University of 00:00:00 [place] [facility] TDAP 2020-06-03 Completed University of 00:00:00 [place] [facility] TDAP 2020-06-03 Completed University of 00:00:00 [place] [facility] TDAP 2020-06-03 Completed University of 00:00:00 [place] [facility] TDAP 2020-06-03 Completed University of 00:00:00 [place] [facility] TDAP 2020-06-03 Completed University of 00:00:00 [facility] TDAP 2020-06-03 Completed University of 00:00:00 [facility] TDAP 2020-06-03 Completed University of 00:00:00 [facility] TDAP 2020-06-03 Completed University of 00:00:00 [facility] TDAP 2020-06-03 Completed University of 00:00:00 [place] [facility] TDAP 2020-06-03 Completed University of 00:00:00 [place] [facility] TDAP 2020-06-03 Completed University of 00:00:00 [place] [facility] TDAP 2020-06-03 Completed University of 00:00:00 [facility] Branch TDAP 2020-06-03 Completed University of 00:00:00 [facility] Branch TDAP 2020-06-03 Completed University of 00:00:00 [facility] Branch TDAP 2020-06-03 Completed University of 00:00:00 [facility] Branch TDAP 2020-06-03 Completed University of 00:00:00 [facility] Branch TDAP 2020-06-03 Completed University of 00:00:00 [facility] Branch TDAP 2020-06-03 Completed University of 00:00:00 [facility] TDAP 2020-06-03 Completed University of 00:00:00 [facility] TDAP 2020-06-03 Completed University of 00:00:00 [facility] TDAP 2020-06-03 Completed University of 00:00:00 [facility] TDAP 2020-06-03 Completed University of 00:00:00 [facility] TDAP 2020-06-03 Completed University of 00:00:00 [facility] HEPATITIS A 2017-06-10 Completed University of 00:00:00 [facility] HEPATITIS A 2017-06-10 Completed University of 00:00:00 [facility] HEPATITIS A 2017-06-10 Completed University of 00:00:00 [facility] HEPATITIS A 2017-06-10 Completed University of 00:00:00 [facility] HEPATITIS A 2017-06-10 Completed University of 00:00:00 [facility] HEPATITIS A 2017-06-10 Completed University of 00:00:00 [facility] HEPATITIS A 2017-06-10 Completed University of 00:00:00 [facility] HEPATITIS A 2017-06-10 Completed University of 00:00:00 [facility] HEPATITIS A 2017-06-10 Completed University of 00:00:00 [facility] Vital Signs Vital Name Observation Time Observation Value Comments Source Systolic blood 2021-02-16 15:27:00 112 mm[Hg] Univer sity of pressure [facility] Diastolic blood 2021-02-16 15:27:00 76 mm[Hg] Unive rsity of pressure [place] [facility] Heart rate 2021-02-16 15:27:00 77 /min Universi ty of [place] [facility] Body temperature 2021-02-16 15:27:00 37 Lucina Univ ersity of [place] [facility] Respiratory rate 2021-02-16 15:27:00 18 /min Univ ersity of [place] [facility] Body height 2021-02-16 15:27:00 160 cm Universi ty [facility] [place] [facility] Body weight 2021-02-16 15:27:00 74.753 kg Universi ty [facility] [place] [facility] BMI 2021-02-16 15:27:00 29.19 kg/m2 [facility]i ty [facility] [place] [facility] Systolic blood 2020-11-23 14:40:00 120 mm[Hg] Univer sity of pressure [place] [facility] Diastolic blood 2020-11-23 14:40:00 84 mm[Hg] Unive rsity of pressure [place] [facility] Heart rate 2020-11-23 14:40:00 78 /min Universi ty of [place] [facility] Body temperature 2020-11-23 14:40:00 36.78 Lucina Univ ersity of [place] [facility] Respiratory rate 2020-11-23 14:40:00 18 /min Univ ersity of [place] [facility] Body height 2020-11-23 14:40:00 160 cm Universi ty [facility] [place] [facility] Body weight 2020-11-23 14:40:00 71.668 kg [facility]i ty [facility] [place] [facility] BMI 2020-11-23 14:40:00 27.99 kg/m2 [facility] [place] [facility] Systolic blood 2020-09-15 17:58:00 120 mm[Hg] Univer sity of pressure [place] [facility] Diastolic blood 2020-09-15 17:58:00 72 mm[Hg] Unive rsity of pressure [place] [facility] Heart rate 2020-09-15 17:58:00 71 /min Universi ty [facility] [place] [facility] Body temperature 2020-09-15 17:58:00 36.94 Lucina Univ ersity of [place] [facility] Respiratory rate 2020-09-15 17:58:00 18 /min Univ ersity of [place] [facility] Body height 2020-09-15 17:58:00 160 cm [facility]i [facility] [place] [facility] Body weight 2020-09-15 17:58:00 70.761 kg [facility]i ty [facility] [place] [facility] BMI 2020-09-15 17:58:00 27.63 kg/m2 Universi ty [facility] [place] [facility] Systolic blood 2020-08-23 17:45:00 132 mm[Hg] Univer sity of pressure [facility] Branch Diastolic blood 2020-08-23 17:45:00 81 mm[Hg] Unive rsity of pressure [facility] Heart rate 2020-08-23 17:45:00 75 /min Universi ty of [facility] Body temperature 2020-08-23 17:45:00 36.94 Lucina Univ ersity of [facility] Branch Respiratory rate 2020-08-23 17:45:00 18 /min Univ ersity of [facility] Oxygen saturation in 2020-08-23 17:45:00 100 /min University Arterial blood by [facility] Pulse oximetry Branch Body height 2020-08-22 10:03:00 160 cm Universi ty of [facility] Body weight 2020-08-22 10:03:00 80.468 kg Universi ty of [facility] BMI 2020-08-22 10:03:00 31.42 kg/m2 Universi ty of [place] [facility] Systolic blood 2020-08-18 18:12:00 129 mm[Hg] Univer sity of pressure [facility] Branch Diastolic blood 2020-08-18 18:12:00 84 mm[Hg] Unive rsity of pressure [facility] Branch Heart rate 2020-08-18 18:12:00 75 /min Universi ty of [facility] Body temperature 2020-08-18 18:12:00 36.78 Lucina Univ ersity of [facility] Respiratory rate 2020-08-18 18:12:00 18 /min Univ ersity of [facility] Branch Body height 2020-08-18 18:12:00 160 cm Universi ty of [place] [facility] Body weight 2020-08-18 18:12:00 80.287 kg Universi ty of [place] [facility] BMI 2020-08-18 18:12:00 31.35 kg/m2 Universi ty of [facility] Systolic blood 2020-08-10 14:17:00 124 mm[Hg] Univer sity of pressure [facility] Branch Diastolic blood 2020-08-10 14:17:00 86 mm[Hg] Unive rsity of pressure [facility] Heart rate 2020-08-10 14:17:00 89 /min Universi ty of [place] [facility] Body temperature 2020-08-10 14:17:00 36.72 Lucina Univ ersity of [place] [facility] Respiratory rate 2020-08-10 14:17:00 18 /min Univ ersity of [place] [facility] Body height 2020-08-10 14:17:00 160 cm [facility]i ty [facility] [place] [facility] Body weight 2020-08-10 14:17:00 79.833 kg [facility]i ty [facility] [place] [facility] BMI 2020-08-10 14:17:00 31.18 kg/m2 [facility] [place] [facility] Systolic blood 2020-07-28 16:25:00 126 mm[Hg] Univer sity of pressure [place] [facility] Diastolic blood 2020-07-28 16:25:00 85 mm[Hg] Unive rsity of pressure [place] [facility] Heart rate 2020-07-28 16:25:00 100 /min Universi ty of [place] [facility] Body temperature 2020-07-28 16:25:00 36.67 Lucina Univ ersity of [facility] Respiratory rate 2020-07-28 16:25:00 18 /min Univ ersity of [place] [facility] Body height 2020-07-28 16:25:00 160 cm [facility]i ty [facility] [place] [facility] Body weight 2020-07-28 16:25:00 80.559 kg [facility]i ty [facility] [place] [facility] BMI 2020-07-28 16:25:00 31.46 kg/m2 [facility] [place] [facility] Systolic blood 2020-07-01 14:07:00 126 mm[Hg] Univer sity of pressure [place] [facility] Diastolic blood 2020-07-01 14:07:00 83 mm[Hg] Unive rsity of pressure [place] [facility] Heart rate 2020-07-01 14:07:00 96 /min Universi ty [facility] [place] [facility] Body temperature 2020-07-01 14:07:00 36.78 Lucina Univ ersity of [place] [facility] Respiratory rate 2020-07-01 14:07:00 18 /min Univ ersity of [place] [facility] Body height 2020-07-01 14:07:00 160 cm [facility]i [facility] [place] [facility] Body weight 2020-07-01 14:07:00 78.926 kg [facility]i ty [facility] [place] [facility] BMI 2020-07-01 14:07:00 30.82 kg/m2 [facility] ty [facility] [place] [facility] Systolic blood 2020-06-17 16:49:00 126 mm[Hg] Univer sity of pressure [place] [facility] Diastolic blood 2020-06-17 16:49:00 75 mm[Hg] Unive rsity of pressure [place] [facility] Heart rate 2020-06-17 16:49:00 92 /min Universi ty [facility] [place] [facility] Body temperature 2020-06-17 16:49:00 36.78 Lucina Univ ersity of [place] [facility] Respiratory rate 2020-06-17 16:49:00 18 /min Univ ersity of [place] [facility] Body height 2020-06-17 16:49:00 160 cm [facility]i ty [facility] [place] [facility] Body weight 2020-06-17 16:49:00 78.926 kg Universi ty [facility] [place] [facility] BMI 2020-06-17 16:49:00 30.82 kg/m2 Universi ty of [facility] Systolic blood 2020-06-03 16:28:00 136 mm[Hg] Univer sity of pressure [place] [facility] Diastolic blood 2020-06-03 16:28:00 82 mm[Hg] Unive rsity of pressure [place] [facility] Heart rate 2020-06-03 16:28:00 93 /min Universi ty of [place] [facility] Body temperature 2020-06-03 16:28:00 36.78 Lucina Univ ersity of [place] [facility] Respiratory rate 2020-06-03 16:28:00 18 /min Univ ersity of [place] [facility] Body height 2020-06-03 16:28:00 160 cm [facility] [place] [facility] Body weight 2020-06-03 16:28:00 76.658 kg [facility] [place] [facility] BMI 2020-06-03 16:28:00 29.94 kg/m2 [facility] [place] [facility] Systolic blood 2020-05-06 18:31:00 129 mm[Hg] Univer sity of pressure [place] [facility] Diastolic blood 2020-05-06 18:31:00 76 mm[Hg] Unive rsity of pressure [place] [facility] Heart rate 2020-05-06 18:31:00 96 /min Universi ty [facility] [place] [facility] Body temperature 2020-05-06 18:31:00 36.83 Lucina Univ ers[facility] [place] [facility] Respiratory rate 2020-05-06 18:31:00 18 /min Univ ersity of [place] [facility] Body height 2020-05-06 18:31:00 160 cm [facility] ty [facility] [place] [facility] Body weight 2020-05-06 18:31:00 74.844 kg [facility] ty [facility] [place] [facility] BMI 2020-05-06 18:31:00 29.23 kg/m2 Universi ty of [facility] Systolic blood 2020-04-07 13:43:00 113 mm[Hg] Univer sity of pressure [facility] Diastolic blood 2020-04-07 13:43:00 76 mm[Hg] Unive rsity of pressure [facility] Heart rate 2020-04-07 13:43:00 76 /min Universi ty of [facility] Body temperature 2020-04-07 13:43:00 36.78 Lucina Univ ersity of [facility] Respiratory rate 2020-04-07 13:43:00 18 /min Univ ersity of [facility] Body height 2020-04-07 13:43:00 160 cm Universi ty of [facility] Body weight 2020-04-07 13:43:00 71.396 kg Universi ty of [facility] BMI 2020-04-07 13:43:00 27.88 kg/m2 Universi ty of [facility] Systolic blood 2020-04-02 18:02:00 115 mm[Hg] Univer sity of pressure [facility] Diastolic blood 2020-04-02 18:02:00 77 mm[Hg] Unive rsity of pressure [facility] Heart rate 2020-04-02 18:02:00 91 /min Universi ty of [facility] Body temperature 2020-04-02 18:02:00 36.94 Lucina Univ ersity of [facility] Respiratory rate 2020-04-02 18:02:00 18 /min Univ ersity of [facility] Body height 2020-04-02 18:02:00 160 cm Universi ty of [facility] Body weight 2020-04-02 18:02:00 70.761 kg [facility]i ty [facility] [place] [facility] BMI 2020-04-02 18:02:00 27.63 kg/m2 Universi ty of [facility] Oxygen saturation in 2020-04-02 18:02:00 98 /min University of Arterial blood by [facility] Pulse oximetry Branch Systolic blood 2020-01-11 21:25:00 125 mm[Hg] Univer sity of pressure [facility] Diastolic blood 2020-01-11 21:25:00 79 mm[Hg] Unive rsity of pressure [place] [facility] Heart rate 2020-01-11 21:25:00 113 /min Universi ty [facility] [place] [facility] Body temperature 2020-01-11 21:25:00 36.94 Lucina Univ ersity [facility] [place] [facility] Respiratory rate 2020-01-11 21:25:00 18 /min Univ ersity of [place] [facility] Body height 2020-01-11 21:25:00 160 cm [facility] [place] [facility] Body weight 2020-01-11 21:25:00 69.854 kg [facility] [place] [facility] BMI 2020-01-11 21:25:00 27.28 kg/m2 [facility] [place] [facility] Systolic blood 2019-12-23 15:53:00 131 mm[Hg] Univer sity of pressure [place] [facility] Diastolic blood 2019-12-23 15:53:00 80 mm[Hg] Unive rsity of [facility] Medical Branch Heart rate 2019-12-23 15:53:00 84 /min Universi ty [facility] [place] [facility] Body temperature 2019-12-23 15:53:00 36.72 Lucina Univ ersity [facility] [place] [facility] Respiratory rate 2019-12-23 15:53:00 18 /min Univ ersity of [place] [facility] Body height 2019-12-23 15:53:00 157.5 cm [facility] ty [facility] [place] [facility] Body weight 2019-12-23 15:53:00 68.947 kg [facility] [place] [facility] BMI 2019-12-23 15:53:00 27.80 kg/m2 [facility] [place] [facility] Procedures Procedure Date / Time Performing Clinician Source Performed US RETROPERITONEAL 2022-06-26 20:53:00 Requisition, Paper [facility] CONSENT/REFUSAL FOR 2022-06-26 19:38:32 Doctor Unassigned, [facility] DIAGNOSIS AND TREATMENT [facility] ASSIGNMENT OF BENEFITS 2022-06-26 19:38:12 Doctor Unassigned, [facility] Name Medical Branch CONSENT FOR DEPO-PROVERA 2020-09-15 06:01:00 Doctor Unassraheel, [facility] CBC WITH DIFF 2020-08-23 09:41:00 Chemo Yates [place] [facility] VENOUS CORD GAS 2020-08-22 20:49:[address] [facility] CBC WITH DIFF 2020-08-22 10:38:[address] [facility] HEPATITIS B SURFACE 2020-08-22 10:38:00 Chemo Yates [facility] ANTIGEN [facility] Branch ADC OR QUITA ONLY - RPR 2020-08-22 10:38:00 [facility]-AB WITH REFLEX 2020-08-22 10:38:00 [facility] COVID-19 (ID NOW RAPID 2020-08-22 10:38:00 Chemo Yates [facility] TESTING) Medical Branch LAB ONLY COVID 2020-08-22 10:38:00 Chemo Yatse [facility] INTERPRETATION [facility] HB ABO GROUPING 2020-08-22 10:36:[address] [facility] RHO (D) IMMUNE GLOBULIN 2020-08-22 10:36:00 Chemo Yates [facility] HOSPITAL ADMISSION 2020-08-22 05:01:00 Doctor Unassigned, [facility] Name Medical Jeff ASSIGNMENT OF BENEFITS 2020-08-18 21:29:24 Doctor Unassigned, [facility] Name Medical Jeff >14 WEEKS US 2020-08-10 14:51:15 Chemo Yates [facility] DSU PRE-OP 2020-08-10 05:01:00 Doctor Unassigned, [facility] POCT URINALYSIS W/O 2020-08-10 00:00:00 Chemo Yates [facility] SPECIFIC GRAVITY [facility] FLU VACC ([phone]), 6+ 2020-07-28 16:26:55 Chemo Yates [facility] MONTHS, IM, QUAD Medical Branch DME/SUPPLY JUSTIFICATION 2020-07-28 05:01:00 Doctor Unassigned, [facility] Jeff POCT URINALYSIS W/O 2020-07-28 00:00:00 Chemo Yates [facility] SPECIFIC GRAVITY Medical Branch POCT URINALYSIS W/O 2020-07-01 00:00:00 Sophia Heard [facility] POCT URINALYSIS W/O 2020-06-17 00:00:00 Chemo Yates [facility] SPECIFIC Critical access hospital CBC WITH DIFF 2020-06-10 15:25:[address] [facility] CONSENT/REFUSAL FOR 2020-06-10 13:37:42 Doctor Unamustapha, [facility] DIAGNOSIS AND TREATMENT [facility] Jeff ASSIGNMENT OF BENEFITS 2020-06-10 13:37:26 Doctor Unassraheel, Un [facility] Name [facility] TDAP VACCINE, >11 YRS, IM 2020-06-03 16:36:16 Sophia Heard Un [facility] POCT URINALYSIS W/O 2020-06-03 00:00:00 Sophia Heard [facility] POCT URINALYSIS W/O 2020-05-06 00:00:00 Sophia Heard [facility] POCT URINALYSIS W/O 2020-04-07 00:00:00 Chemo Yates [facility] POCT URINALYSIS 2020-04-02 18:10:00 [facility] AGREEMENTS AUTHORIZATIONS 2020-03-09 05:01:00 Doctor Koby, [facility] AND IRREVOCABLE [facility] ASSIGNMENTS (FORM 2001) SCANNED LAB RESULTS 2020-02-10 05:01:00 Doctor [facility] <14 WEEKS US 2020-01-11 23:15:16 Chemo Yates [facility] PRINCIPAL ADMINISTRATIVE CLERK CLINIC ULTRASOUND 2020-01-11 05:01:00 Doctor Koby, [facility] US OB TRANSVAGINAL 2019-12-24 09:53:24 [facility] 2019-12-23 21:58:00 [facility] TEST 2019-12-23 00:00:00 Chemo Yates [facility] POCT URINALYSIS W/O 2019-12-23 00:00:00 Chemo Yates [facility] [place] SPECIFIC Critical access hospital Encounters Start End Encounter Admission Attending Care Care Encounter Source Date/Time Date/Time Type Type Clinicians Facility Department ID 2021-08-26 Outpatient P [facility] NIURKA [id number] Univers 00:35:48 ity of [facility] 2022-08-07 2022-08-07 Outpatient R BO LEE [facility] [id number] Univers 15:30:00 15:30:00 ity of [facility] 2022-06-26 2022-06-26 Outpatient R RADIOLOGY [facility] [id number] Univers 14:39:56 23:59:00 ity of [facility] 2022-06-26 2022-06-26 Hospital Radiology [facility] [id number] Univers 14:39:56 23:59:00 Encounter [place] [id number] ity of [place] [id number] [facility] [id number] [facility] 806 Jeff 2021-06-08 2021-06-08 Laboratory Lab, Adc Fam Pob I [facility] [id number] Univers 18:44:19 19:04:19 [facility] [id number] ity of [place] [id number] [facility] as Professio [id number] [address] 2021-06-08 2021-06-08 Outpatient R HENRY [facility] [id number] Univers 19:00:00 19:00:00 [facility] 2021-05-18 2021-05-18 Outpatient R [facility] [id number] Univers 09:00:00 09:00:00 ity of [facility] 2021-04-03 2021-04-03 Outpatient R ORQUIDEA [facility] [id number] Univers 13:30:00 13:30:00 [facility] 2021-03-15 2021-03-15 Outpatient R ORQUIDEA [facility] [id number] Univers 08:00:00 08:00:00 [facility] 2021-02-16 2021-02-16 Nurse Nurse, [facility] [id number] Univers 10:01:31 10:24:11 Visit Sophia Heard [id number] [id number] [place] [id number] [place] dical nal [address] [facility] 2021-02-16 2021-02-16 Outpatient R [facility] [id number] Univers 10:00:00 10:00:00 ity of [facility] 2020-11-23 2020-11-23 Nurse Nurse, [facility] 1.2.840.114 [id number] Univers 08:08:16 08:49:20 Visit Celine Yatesen Axel Padron 350.1.13.10 it[place] of [place] [phone] [place] dical nal [address] [place] [address] 2020-11-23 2020-11-23 Outpatient R [facility] [id number] Univers 08:00:00 08:00:00 ity of [facility] 2020-10-18 2020-10-18 Laboratory Lab, [facility] Fam Pob I [facility] 1.2. 840.114 [id number] Univers 19:07:40 19:27:40 Only [place] 350.1.13.10 ity of [place] 4.2.7.2.686 [place] as Professio [phone] [place] dical nal [address] [employer] 2020-10-18 2020-10-18 Outpatient R [facility] [id number] Univers 19:20:00 19:20:00 ity of [facility] 2020-09-15 2020-09-[address] [facility] 1.2.324.639 [id number] Univers 11:23:30 11:38:30 Sophia Padron 350.1.13.10 ity of [place] [phone] [place] dical nal 134 [facility] 2020-09-15 2020-09-15 [facility] [id number] Univers 11:30:00 11:30:00 SOPHIA ity of [facility] 2020-09-15 2020-09-15 Orders Doctor MARYJO 1.2.840.114 [id number] Univers 00:00:00 00:00:00 Only Unassigned, ZAK 350.1.13.10 ity of [place] [facility] 4.2.7.2.686 [place] as [phone] [address] 2020-08-22 2020-08-23 Hospital Trudy [facility] 1.2.840.114 [id number] Univers 03:53:00 19:55:00 Encounter Cam [place] 350.1.13.10 ity of [place] [phone] [address] 2020-08-22 2020-08-22 Outpatient R [facility] [id number] Univers 09:15:00 09:15:00 ity of [facility] 2020-08-22 2020-08-22 Orders Doctor SIBLEY 1.2.840.114 [id number] Univers 00:00:00 00:00:00 Only Unassigned, ZAK 350.1.13.10 ity of [place] [facility] 4.2.7.2.686 [place] as [phone] [address] 2020-08-18 2020-08-18 Routine Trudy [facility] 1.2.493.543 [id number] Univers 12:52:48 13:30:31 Cam [place] 350.1.13.10 ity of [place] [facility] [phone] [facility] 2020-08-18 2020-08-18 Outpatient R TRUDY CHEMO [facility] [id number] Univers 13:00:00 13:00:00 ity of [facility] 2020-08-18 2020-08-18 Orders Doctor MARYJO Martinez2.840.114 [id number] Univers 00:00:00 00:00:00 Only Unassigned, ZAK 350.1.13.10 ity of [place] [facility] 4.2.7.2.686 [place] as [phone] [address] 2020-08-10 2020-08-10 Outpatient R CHEMO YATES [facility] [id number] Univers 09:15:00 09:15:00 ity of [facility] 2020-08-10 2020-08-10 Routine Chemo Yates [facility] 1.2.488.104 [id number] Univers 08:56:31 09:11:31 Axel Padron 350.1.13.10 ity of [place] [phone] Me dical nal 134 [facility] 2020-08-10 2020-08-10 Orders Doctor MARYJO 1.2.840.114 [id number] Univers 00:00:00 00:00:00 Only Unassigned, ZAK 350.1.13.10 ity of [place] [facility] 4.2.7.2.686 [place] as [phone] [address] 2020-08-09 2020-08-09 Test Lead 2, Adc Lab [facility] 1.2.840.114 [id number] Univers 13:43:22 13:58:22 Visit Chemo Yates Nereida 350.1.13.10 ity of [place] [phone] [place] dical nal 353 [facility] 2020-08-09 2020-08-09 Outpatient R ORQUIDEA [facility] [id number] Univers 13:30:00 13:30:00 SOPHIA ity of [facility] 2020-08-09 2020-08-09 Case Chemo Yates [facility] 1.2.371.897 [id number] Univers 00:00:00 00:00:00 Management Axel Padron 350.1.13.10 ity of [place] [phone] [place] dical nal 134 [facility] 2020-07-28 2020-07-28 Routine Chemo Yates [facility] 1.2.840.114 [id number] Univers 11:04:19 11:54:14 Sophia Heard 350.1.13.10 ity of [place] [phone] [address] 2020-07-28 2020-07-28 Outpatient R GABRIELSAVANNAHREA [facility] [id number] Univers 11:15:00 11:15:00 SOPHIA itroman [facility] 2020-07-28 2020-07-28 Orders Doctor MARYJO 1.2.840.114 [id number] Univers 00:00:00 00:00:00 Only Unassigned, ZAK 350.1.13.10 ity of [place] [facility] 4.2.7.2.686 [place] as [phone] [address] 2020-07-27 2020-07-27 Telephone Orquidea [facility] 1.2.840.114 [id number] Univers 00:00:00 00:00:00 Sophia Padron 350.1.13.10 i ty of [place] [phone] [address] 2020-07-27 2020-07-27 Telephone Trudy [facility] 1.2.840.114 [id number] Univers 00:00:00 00:00:00 Cam [place] 350.1.13.10 i ty of [place] [phone] [address] 2020-07-27 2020-07-27 [facility] 1.2.840.114 [id number] Univers 00:00:00 00:00:00 Cam [place] 350.1.13.10 i ty of [place] [phone] [address] 2020-07-20 2020-07-20 Telephone [facility] 1.2.840.114 [id number] Univers 00:00:00 00:00:00 Cam [place] 350.1.13.10 i ty of [place] [phone] [address] 2020-07-15 2020-07-15 Refill Trudy [facility] 1.2.900.223 [id number] Univers 00:00:00 00:00:00 Cam [place] 350.1.13.10 i ty of [place] [phone] [address] 2020-07-14 2020-07-14 Telemedici Gabrielanu [facility] 1.2.840.114 [id number] Univers 08:32:42 12:12:47 ne Visit Sophia Nereida 350.1.13.10 ity of [place] [phone] [address] 2020-07-14 2020-07-14 Outpatient R ORQUIDEA [facility] [id number] Univers 11:15:00 11:15:00 SOPHIA itroman [facility] 2020-07-01 2020-07-01 Routine Chemo Yates [facility] 1.2.840.114 [id number] Univers 09:00:29 09:45:56 Orquidea Sophiasalena Padron 350.1.13.10 ity of [place] [phone] [address] 2020-07-01 2020-07-01 Outpatient R ORQUIDEA [facility] [id number] Univers 09:00:00 09:00:00 SOPHIA itroman [facility] 2020-06-17 2020-06-17 Routine Trudy [facility] 1.2.733.877 [id number] Univers 11:10:02 15:55:27 Axel Padron 350.1.13.10 ity of [place] [phone] [address] 2020-06-17 2020-06-17 Outpatient R CHEMO YATES [facility] [id number] Univers 09:00:00 09:00:00 ity of [facility] 2020-06-10 2020-06-10 Outpatient R CHEMO YATES [facility] [id number] Univers 09:00:00 09:00:00 ity of [facility] 2020-06-10 2020-06-10 Test Lead Lo Ansari Lab Main [facility] 1.2.8 40.114 [id number] Univers 08:39:25 08:54:25 Visit TrudyChemo Axel Padron 350.1.13.10 ity of [place] [phone] Ks dical nal 353 [facility] 2020-06-10 2020-06-10 Orders Doctor MARYJO 1.2.840.114 [id number] Univers 00:00:00 00:00:00 Only Unassigned, ZAK 350.1.13.10 [facility] 4.2.7.2.686 [place] as [phone] [address] 2020-06-06 2020-06-06 Outpatient R [facility] [id number] Univers 10:45:00 10:45:00 ity of [facility] 2020-06-03 2020-06-[address] [facility] 1.2.186.665 [id number] Univers 11:16:20 11:42:07 Sophia Padron 350.1.13.10 ity [place] [phone] [place] dical nal 134 [facility] 2020-06-03 2020-06-03 [facility] [id number] Univers 11:30:00 11:30:00 SOPHIA ity [facility] 2020-05-06 2020-05-06 Outpatient [facility] [id number] Univers 16:15:00 16:15:00 SOPHIA ity [facility] 2020-05-06 2020-05-[address] [facility] 1.2.472.235 [id number] Univers 13:05:12 13:38:21 Sophia Padron 350.1.13.10 ity of [place] [phone] [place] dical nal 134 [facility] 2020-04-19 2020-04-19 Test Lead [facility] 1.2 .840.114 [id number] Univers 10:36:43 11:23:34 Visit Eladio Neal PRINCIPAL ADMINISTRATIVE CLERK 350.1.13.10 ity of [facility] 4.2.7.2.686 [place] as MATERNAL [phone] Med ical & CHILD [address] [place] [address] 2020-04-19 2020-04-19 Outpatient P [facility] [id number] Univers 10:30:00 10:30:00 ity of [facility] 2020-04-07 2020-04-07 Routine Trudy [facility] 1.2.706.523 [id number] Univers 08:35:50 09:10:58 [place] 350.1.13.10 ity of [place] [phone] [place] dical nal [address] [place] [address] 2020-04-07 2020-04-07 Outpatient R TRUDY CHEMO [facility] [id number] Univers 08:30:00 08:30:00 ity of [facility] 2020-04-02 2020-04-02 Urgent Provider, [facility] Care [facility] 1.2.840.114 [id number] Univers 12:42:41 13:23:46 Care [facility] 350.1.13.10 ity of [place] 4.2.7.2.686 [place] Professio [phone] [facility] [address] [facility] 2020-04-02 2020-04-02 Outpatient R JUSTIN [facility] [id number] Univers 12:40:00 12:40:00 RADHA ity of [facility] 2020-04-02 2020-04-02 Letter Justin [facility] 1.2.840.114 [id number] Univers 00:00:00 00:00:00 (Out) [facility] 350.1.13.10 it y of [place] 4.2.7.2.686 [place] Professio [phone] [place] dical nal [address] [employer] 2020-04-01 2020-04-01 Telephone Chemo Yates [facility] 1.2.840.114 [id number] Univers 00:00:00 00:00:00 Cam [place] 350.1.13.10 i ty of [place] [phone] [place] dical nal 134 [facility] 2020-03-09 2020-03-09 Test Lead 2, Adc Lab [facility] 1.2.840.114 [id number] Univers 08:08:26 08:23:26 Visit Chemo [place] 350.1.13.10 ity of [place] [phone] [place] dical nal 353 [facility] 2020-03-09 2020-03-09 Outpatient R [facility] [id number] Univers 08:15:00 08:15:00 ity of [facility] 2020-03-09 2020-03-09 Orders Doctor MARYJO 1.2.840.114 [id number] Univers 00:00:00 00:00:00 Only Unassigned, ZAK 350.1.13.10 [facility] 4.2.7.2.686 [place] as [phone] [address] 2020-03-07 2020-03-07 Telemedici Sophia Heard [facility] 1.2.840 .114 [id number] Univers 08:11:42 14:15:39 ne Visit Chemo Yates [place] 350.1.13.10 ity of [place] [phone] [place] dical nal 134 [facility] 2020-03-07 2020-03-07 Outpatient R CHEMO YATES [facility] [id number] Univers 13:00:00 13:00:00 ity of [facility] 2020-02-17 2020-02-17 Telephone Chemo Yates [facility] 1.2.840.114 [id number] Univers 00:00:00 00:00:00 Cam [place] 350.1.13.10 i ty of [place] [phone] [place] dical nal 134 [facility] 2020-02-16 2020-02-16 Telephone Chemo Yates [facility] 1.2.840.114 [id number] Univers 00:00:00 00:00:00 Cam [place] 350.1.13.10 i ty of [place] [phone] [place] dical nal 134 [facility] 2020-02-10 2020-02-10 Outpatient R [facility] [id number] Univers 08:15:00 08:15:00 ity of [facility] 2020-02-10 2020-02-10 Orders Doctor MARYJO 1.2.840.114 [id number] Univers 00:00:00 00:00:00 Only Unassigned, ZAK 350.1.13.10 ity of [place] [facility] 4.2.7.2.686 [place] as [phone] [address] 2020-02-09 2020-02-09 Outpatient R [facility] [id number] Univers 17:00:00 17:00:00 ity of [facility] 2020-02-08 2020-02-08 Telemedici Trudy [facility] 1.2.840.114 [id number] Univers 08:12:42 14:21:44 ne Visit Axel Padron 350.1.13.10 ity of [place] [phone] Ks dical [address] 2020-02-08 2020-02-08 Outpatient R TRUDY [facility] [id number] Univers 13:30:00 13:30:00 ity of [facility] 2020-01-25 2020-01-25 Test Lead Lo Ansari Lab Main [facility] 1.2.8 40.114 [id number] Univers 17:07:36 17:22:36 Visit Trudy Chemojeffery Padron 350.1.13.10 ity of [place] 4[place].2.[place] [phone] Ks dical [address] 2020-01-25 2020-01-25 Outpatient R TRUDY [facility] [id number] Univers 17:15:00 17:15:00 ity of [facility] 2020-01-18 2020-01-18 Telephone Yates [facility] 1.2.840.114 [id number] Univers 00:00:00 00:00:00 Cam [place] 350.1.13.10 i ty of [place] [phone] [place] dical nal [address] [place] [address] 2020-01-11 2020-01-11 Routine Yates, [facility] 1.2.751.048 [id number] Univers 16:08:49 16:42:35 Axel [place] 350.1.13.10 ity of [place] [phone] [facility] 134 [facility] 2020-01-11 2020-01-11 Outpatient R CHEMO YATES [facility] [id number] Univers 16:15:00 16:15:00 ity of [facility] 2020-01-11 2020-01-11 Orders Doctor MARYJO 1.2.840.114 [id number] Univers 00:00:00 00:00:00 Only Unassigned, ZAK 350.1.13.10 ity of [facility] 4.2.7.2.686 [place] as [phone] [address] 2020-01-06 2020-01-06 Outpatient R CHEMO YATES [facility] [id number] Univers 15:30:00 15:30:00 ity of [facility] 2019-12-30 2019-12-30 Test Lead Elan, Adc Lab Main [facility] 1.2.8 40.114 [id number] Univers 16:58:18 17:13:18 Visit Chemo Yates Axel Palomareston 350.1.13.10 ity of [place] [phone] [facility] 353 [facility] 2019-12-30 2019-12-30 Outpatient R CHEMO YATES [facility] [id number] Univers 17:00:00 17:00:00 ity of [facility] 2019-12-29 2019-12-29 Telephone Trudy [facility] 1.2.840.114 [id number] Univers 00:00:00 00:00:00 Cam [place] 350.1.13.10 i ty of [place] [phone] [facility] 134 [facility] 2019-12-28 2019-12-28 Test Lead Elan, Adc Lab Main [facility] 1.2.8 40.114 [id number] Univers 16:38:55 16:53:55 Visit Chemo Yates [place] 350.1.13.10 ity of [place].2.[place] [phone] [place] dical nal [address] [place] [address] 2019-12-28 2019-12-28 Outpatient R CHEMO YATES [facility] [id number] Univers 16:45:00 16:45:00 ity [facility] 2019-12-24 2019-12-24 Telephone Chemo Yates [facility] 1.2.840.114 [id number] Univers 00:00:00 00:00:00 Cam [place] 350.1.13.10 i ty of [place].2.[place] [phone] [address] 2019-12-23 2019-12-23 Test Lead 2, Adc Lab [facility] 1.2.840.114 [id number] Univers 15:53:29 16:08:29 Visit Chemo Yates Axel Palomareston 350.1.13.10 ity of [place].2.[place] [phone] [address] 2019-12-23 2019-12-23 Initial Chemo Yates [facility] 1.2.038.132 [id number] Univers 09:38:01 10:52:58 Axel Palomareston 350.1.13.10 ity of [place] 4.[place].2.[place] [phone] [address] 2019-12-23 2019-12-23 Outpatient R CHEMO YATES [facility] [id number] Univers 10:00:00 10:00:00 ity [facility] Results Test Description Test Time Test Comments [...] 32.5 g/dL 31.6-35.1 RDW-SD (test code = 36165-5) 39.6 fL 39-49.9 RDW-CV (test code = 788-0) 13.6 % 12-15.5 PLT (test code = 777-3) See_Comment L [Au tomated message] The system which nextsocial nerated this result transmit maye reference range: 166 - 35 8 10*3/?L. The reference range was not used to interpret th is result as normal/abnormal . MPV (test code = 30082-8) 11.2 fL 9.5-12.9 NRBC/100 WBC (test code = See_Comment [ Automated message] The 6107538506) system which [employer]social nerated this result transmit maye reference range: 0.0 - 10 .0 /100 WBCs. The reference r kevin was not used to interpr et this result as normal/abnor mal. NRBC x10^3 (test code = <0.01 See_Comment [Au tomated message] The 5565946051) system which [employer] nerated this result transmit maye reference range: 10*3/?L. The reference range was not u sed to interpret this result as normal/abnormal . GRAN MAT (NEUT) % (test code 71.7 % = 770-8) IMM GRAN % (test code = 0.40 % 9117001992) LYMPH % (test code = 736-9) 21.1 % MONO % (test code = 5905-5) 5.5 % EOS % (test code = 713-8) 1.0 % BASO % (test code = 706-2) 0.3 % GRAN MAT x10^3(ANC) (test 8.72 10*3/uL 1.88-7.09 H code = 6481365837) IMM GRAN x10^3 (test code = 0.05 10*3/uL 0-0.06 6836645711) LYMPH x10^3 (test code = 2.56 10*3/uL 1.32-3.29 731-0) MONO x10^3 (test code = 0.67 10*3/uL 0.33-0.92 742-7) EOS x10^3 (test code = 0.12 10*3/uL 0.03-0.39 711-2) BASO x10^3 (test code = 0.04 10*3/uL 0.01-0.07 704-7) Lab Interpretation (test Abnormal code = 73093-9) [facility] OR QUITA ONLY - [id number] 06:12:00 Test Item Value Reference Range Interpretation Comments RPR (Qualitative) (test code = Nonreactive Nonreactive 60657-4) Lab Interpretation (test code = Normal 90660-4) [facility] ONLY COVID [id number] 00:29:00COVID DMT InterpretationInterpretation/Recommendations\nTests (PCR) for Active Infection [...] a nasopharyngeal sample, there is approximately a owt-si-gcaha chance that the patient was infected and [...] wouldbe important to perform if the IgM ybin-OQMER-89 antibody test is positive. B. ? A [...] antibodies, this may be the explanation. ? ?[facility] LABORATORY SERVICESCOVID DoeubqaHPKA-SzY-3 Rapid ID NOW (no units) ? ? Date ? Value ? 08/22/2020 ? Not Detected ? [facility] LABORATORY SERVICESUnTexas Health [facility] WorthRHO (D) IMMUNE [id number] 23:28:48 Test Item Value Reference Range Interpretation Comments RHIG CANDIDATE? No- see comment Patient i s not a (test code = candidate for R [facility]- 5055) Patient is Rh Positive.Perfor med at [facility] Laboratory Services - [facility] Blood [address] [place] [address]Qgim Free: [phone] A No. [id number] [facility] [id number] 21:03:00 Test Item Value Reference Range Interpretation Comments VENOUS BASE EXCESS, CORD mEq/L (test code = 6887400794) VENOUS PH, CORD (test 7.25-7.45 code = 3828944547) VENOUS PC02, CORD (test See_Comment [Au tomated message] code = 7844391611) The syste m which generated this result transmitted ref erence range: 27 - 49 mmHg. The reference r kevin was not used to interpret this result as normal/abnor mal. VENOUS PO2, CORD (test See_Comment H [Aut omated message] code = 9414299410) The syste m which generated this result transmitted ref erence range: 17 - 41 mmHg. The reference r kevin was not used to interpret this result as normal/abnor mal. VENOUS BICARBONATE, CORD See_Comment [A utomated message] (test code = 4353208069) The system which generated this result transmitted ref erence range: 12 - 29 mEq/L. The reference r kevin was not used to interpret this result as normal/abnor mal. Lab Interpretation (test Abnormal code = 87629-9) [facility] Cord [id number] 21:01:00 Test Item Value Reference Range Interpretation Comments BASE EXCESS, CORD (test mEq/L code = 2860204938) AC PH, CORD (BEAKER) 7.18-7.38 L (test code = 2455961803) PC02, CORD (test code = See_Comment H [Au tomated message] 5037444782) The system whic h generated this result transmitted ref erence range: 32 - 66 mmHg. The reference r kevin was not used to interpret this result as normal/abnor mal. PO2, CORD (test code = See_Comment [Aut omated message] 1278697899) The system whic h generated this result transmitted ref erence range: 10 - 30 mmHg. The reference r kevin was not used to interpret this result as normal/abnor mal. BICARBONATE, CORD (test See_Comment [Au tomated message] code = 4880870298) The syste m which generated this result transmitted ref erence range: 17 - 27 mEq/L. The reference r kevin was not used to interpret this result as normal/abnor mal. Lab Interpretation (test Abnormal code = 54824-0) [facility] [id number] 15:46:00 Test Item Value Reference Range Interpretation Comments HBsAg Semi-Quantitative (test code = Negative Negative 5195-3) [facility] AG-AB WITH [id number] 14:04:00 Test Item Value Reference Range Interpretation Comments HIV Negative Negative Semi-quantitative (test code = 58399-8) MARIA GUADALUPE (test code = Non-reactive for HIV-1 MARIA GUADALUPE) antigen and HIV-1/HIV-2 antibodies. ?No laboratory evidence of HIV infection. ?Repeat in 2-4 weeks if acute HIV infection is suspected. [facility] HospitalType and Screen - ONCE [id number] 13:13:04 Test Item Value Reference Range Interpretation Comments ABO & RH (test code A Positive Performe d at [facility] = 20) Laboratory [facility] Blood Bank[address] [place], [place] [address]Toll Free: [phone] A No. [id number] IAT (test code = Negative Performed a t [facility] 1185) Laboratory [facility] Blood Bank1 [address] [place], [place] [id number] Free: [phone] A No. [id number] [facility] Hospital[facility]APID TESTING[facility]2020-08-22 11:45:00 Test Item Value Reference Range Interpretation Comments SARS-CoV-2 Rapid ID NOW Not Detected Not Detected (test code = 79158-4) MARIA GUADALUPE (test code = MARIA GUADALUPE) ID NOW COVID-19 Assay is an isothermal nucleic acid amplification test intended for the qualitative detection of nucleic acid from SARS-CoV-2 viral RNA in nasopharyngeal ([employer]) specimens. It is used under Emergency Use [...] indicated. Lab Interpretation Normal (test code = 98124-1) [facility] with [id number] 11:23:00 Test Item Value Reference Range Interpretation [...] (test code = 38.8 fL 39-49.9 L 90326-1) RDW-CV (test code = 13.4 % 12-15.5 788-0) PLT (test code = See_Comment [Automated 777-3) message] The sy stem which generated this result transmitted reference range : 166 - 358 10*3/ ?L. The reference r kevin was not used to interpret this result as normal/abnormal . MPV (test code = 11.4 fL 9.5-12.9 16306-9) NRBC/100 WBC (test See_Comment [Automat ed code = 9828693882) message] The system which generated this result transmitted reference range : 0.0 - 10.0 /100 WBCs. The refer ence range was not u sed to interpret th is result as normal/abnormal . NRBC x10^3 (test code <0.01 See_Comment [Auto mated = [id number]) message] The s ystem which generated this result transmitted reference range : 10*3/?L. The reference range was not used to interpret this result as normal/abnormal . GRAN MAT (NEUT) % 62.7 % (test code = 770-8) IMM GRAN % (test code 0.80 % = 4893839984) LYMPH % (test code = 27.4 % 736-9) MONO % (test code = 7.1 % 5905-5) EOS % (test code = 1.5 % 713-8) BASO % (test code = 0.5 % 706-2) GRAN MAT x10^3(ANC) 5.78 10*3/uL 1.88-7.09 (test code = 4225960077) IMM GRAN x10^3 (test 0.07 10*3/uL 0-0.06 H code = 2651905814) LYMPH x10^3 (test code 2.52 10*3/uL 1.32-3.29 = 731-0) MONO x10^3 (test code 0.65 10*3/uL 0.33-0.92 = 742-7) EOS x10^3 (test code = 0.14 10*3/uL 0.03-0.39 711-2) BASO x10^3 (test code 0.05 10*3/uL 0.01-0.07 = 704-7) Lab Interpretation Abnormal (test code = 23733-8) [facility]>14 WEEKS US [id number] 14:51:37Limited USG for presentation: ?Cephalic Chemojeffery Yates MD ?08/10/2020 ?9:51 AMUnTexas [facility] WorthPO[facility]INALYS[facility] W/O SPECIFIC GRAVITY 2020-08-10 14:35:00 Test [...] Negative [facility] URINALYSIS W/O SPECIFIC [id number] 16:27:00 Test Item Value Reference Range Interpretation [...] Negative Lab Interpretation (test code = Normal 58111-2) [facility] URINALYSIS W/O SPECIFIC [id number] 14:10:00 Test Item Value Reference Range Interpretation [...] Negative [facility] URINALYSIS W/O SPECIFIC [id number] 16:50:00 Test Item Value Reference Range Interpretation [...] Negative Lab Interpretation (test code = Normal 30031-2) [facility] WITH [id number] 15:37:00 Test Item Value Reference Range Interpretation [...] (test code = 38.0 fL 39-49.9 L 50033-8) RDW-CV (test code = 12.5 % 12-15.5 788-0) PLT (test code = See_Comment [Automated 777-3) message] The sy stem which generated this result transmitted reference range : 166 - 358 10*3/ ?L. The reference r kevin was not used to interpret this result as normal/abnormal . MPV (test code = 10.0 fL 9.5-12.9 89003-6) NRBC/100 WBC (test See_Comment [Automat ed code = 7065494509) message] The system which generated this result transmitted reference range : 0.0 - 10.0 /100 WBCs. The refer ence range was not u sed to interpret th is result as normal/abnormal . NRBC x10^3 (test code <0.01 See_Comment [Auto mated = [id number]) message] The s ystem which generated this result transmitted reference range : 10*3/?L. The reference range was not used to interpret this result as normal/abnormal . GRAN MAT (NEUT) % 64.0 % (test code = 770-8) IMM GRAN % (test code 0.70 % = 9299980508) LYMPH % (test code = 25.7 % 736-9) MONO % (test code = 7.5 % 5905-5) EOS % (test code = 1.7 % 713-8) BASO % (test code = 0.4 % 706-2) GRAN MAT x10^3(ANC) 5.22 10*3/uL 1.88-7.09 (test code = 7126203579) IMM GRAN x10^3 (test 0.06 10*3/uL 0-0.06 code = 0596692922) LYMPH x10^3 (test code 2.10 10*3/uL 1.32-3.29 = 731-0) MONO x10^3 (test code 0.61 10*3/uL 0.33-0.92 = 742-7) EOS x10^3 (test code = 0.14 10*3/uL 0.03-0.39 711-2) BASO x10^3 (test code 0.03 10*3/uL 0.01-0.07 = 704-7) Lab Interpretation Abnormal (test code = 98389-6) [facility] URINALYSIS W/O SPECIFIC [id number] 16:37:00 Test Item Value Reference Range Interpretation [...] Negative [facility] URINALYSIS W/O SPECIFIC [id number] 18:39:00 Test Item Value Reference Range Interpretation [...] code = 3257) n/a Negative - Negative [facility] [id number] 13:45:00 Test Item Value Reference Range Interpretation [...] Negative Lab Interpretation (test code = Normal 16412-6) [facility] [id number] 18:11:00 Test Item Value Reference Range Interpretation [...] controls Lab Interpretation Normal (test code = 97386-6) [facility]<14 WEEKS US [id number] 23:17:47Limited USG for dating and viability: ?Single live IUP measured 7 1/7 weeks. ?Will date by this USG unless clinically indicated otherwise Chemo Yates MD ?01/11/2020 ?6:17 PMUnTexas [facility] WorthUS OB TRANSVAGINAL 2019-12-24 09:55:03USG for dating as unsure LMP: ?NO gestational sac noted in the uterus. ?Right ovary measured 2.61 x 1.46 cm and left ovary measured 3.16 x 1.18 cm. ?Small amount of free fluid in the cul-de-sac, appeared physiologic. Chemo Yates MD ?12/24/2019 ?3:54 AMUnTexas Health [facility] WorthHCG, QUANTITATIVE, [id number] 22:50:00 Test Item Value Reference Range Interpretation Comments BETA HCG (test See_Comment [Automated m essage] code = The system Clean PET h [id number]) generated this result transmit maye reference range : Non- fe male and male patien ts: <5 mIU/mL. The reference range was not used to interpret this result as normal/abnormal . MARIA GUADALUPE (test code Gestational Age ? ? = MARIA GUADALUPE) ?Range (mIU/mL) 1-10 ?Weeks ?[id number] Weeks ?[id number] Weeks ?1481-80365592-83 Weeks ?[id number] Biotin has been reported to cause a negative bias, interpret results relative to patient's use of biotin. [facility] [id number] 15:58:00 Test Item Value Reference Range Interpretation [...] Negative Lab Interpretation (test code = Normal 98201-6) [facility] [id number] 15:58:00 Test Item Value Reference Range Interpretation Comments POCT PREG (test code = 1605) Positive On board controls acceptable with C Yes Line (test code = 3574) POCT PREG LOT # (test code = 3575) POCT PREG TEST DATE (test code = 3576) Lab Interpretation (test code = Normal 68097-9) [facility]
[2023-06-30 06:28] LABS: Absolute Lymphocytes (CBC) 1.4 K/uL (0.7-4.9); Hematocrit 37.9 % (36.0-45.0); Lymphocytes % 19.7 % (15.3-44.8); MCV 82.9 fL (80-100); MPV 7.9 fL (7.6-11.3); Platelets 262 thou/uL (152-406); RBC Red Blood Cell Count 4.57 M/uL (3.86-4.86)
[2023-06-30] MEDS ORDERED: NA CHLORIDE 0.9% 1,000 ML ONE ×2 (06:40→07:51)
[2023-06-30 06:41] LABS: Specific Gravity 1.022 (1.005-1.030)
[2023-06-30 06:43] LABS: Specific Gravity 1.022 (1.005-1.030); Urine Bacteria None Seen /HPF (<20); Urine Bilirubin NEGATIVE (Negative); Urine Blood Negative (Negative); Urine Clarity Clear (Clear); Urine Color Yellow (Yellow); Urine Glucose NEGATIVE (Negative); Urine Mucus 2+ /HPF (None Seen); Urine Protein TRACE (Negative); Urine RBC <5 /HPF (None Seen); Urine Urobilinogen Normal (Normal); Urine pH 5.5 (5.0-7.0)
[2023-06-30 06:44] LABS: Albumin 3.3 g/dL (3.4-5.0); Bilirubin Total 0.3 mg/dL (0.2-1.0); Potassium 3.8 mEq/L (3.5-5.1); Protein, Total 7.1 g/dL (6.4-8.2)
[2023-06-30 07:00] LABS: Barbiturates NEGATIVE (NEGATIVE); Benzodiazepines NEGATIVE (NEGATIVE); Cocaine NEGATIVE (NEGATIVE); METHAMPHETAM NEGATIVE (NEGATIVE); Methadone NEGATIVE (NEGATIVE); Opiates NEGATIVE (NEGATIVE); Phencyclidine NEGATIVE (NEGATIVE); THC Cannibis NEGATIVE (NEGATIVE)
--- NOTE | 2023-06-30 07:10 | RAD REPORT ---
EXAM DESCRIPTION: CT - Head Brain Wo Cont - 06/30/2023 7:04 am CLINICAL HISTORY: HEADACHE COMPARISON: No comparisons TECHNIQUE: All CT scans are performed using dose optimization technique as appropriate and may inclu de automated exposure control or mA/KV adjustment according to patient size. FINDINGS: No intracranial hemorrhage, hydrocephalus or extra-axial fluid collection.No areas of brai n edema or evidence of midline shift. The paranasal sinuses and mastoids are clear. The calvarium is intact. IMPRESSION: No acute intracranial abnormality.
[2023-06-30] MEDS ORDERED: DIPHENHYDRAMINE 50 MG/ML VIAL ONE (07:50)
[2023-06-30] MEDS ORDERED: METOCLOPRAMIDE 10 MG/2mL INJ ONE (07:50)
[2023-06-30] MEDS ORDERED: KETOROLAC 30 MG/ML INJ ONE (07:51)
[2023-06-30] MEDS ORDERED: NA CHLORIDE 0.9% 500 ML ONE (08:42)
[2023-06-30 08:57] LABS: CSF Glucose 52 mg/dL (40-70)
[2023-06-30 09:14] LABS: Appearance CLEAR (CLEAR); Body Fluid Source CSF; Color of fluid Colorless (COLORLESS); Fluid Total Volume 4 ml
[2023-06-30 09:15] LABS: Appearance CLEAR (CLEAR); Body Fluid Source CSF; Color of fluid Colorless (COLORLESS)
[2023-06-30 09:42] LABS: Body Fluid WBC 30 /mm^3; Body Fluid WBC 43 /mm^3
--- NOTE | 2023-06-30 10:05 | EDPHYS ---
Physician Documentation [facility] Name: Viki Bright Age: 23 yrs Sex: Female : 2000 Arrival Date: 06/30/2023 Time: 05:46 Bed 6 Private MD: ED Physician Eli Gutierrez HPI: 06/30 07:29 This 23 yrs old Female presents to ER via Ambulatory with complaints of malachi Doesn't Feel Right. 07:29 The patient complains of pain to the top of head, forehead, left frontal area, right malachi frontal area, right side of the back of head, right occipital area, right base of the skull and left side of head. The patient describes the headache as constant. Onset: The symptoms/episode began/occurred gradually, 1 day(s) ago. Associated signs and symptoms: Pertinent positives: nausea, neck stiffness. Severity of symptoms: At its worst the pain was mild, moderate, in the emergency department the pain is actually worse. Headache History: The patient has had previous headaches and this one is similar to previous episodes, and this one is more severe than previous episodes. The symptoms are alleviated by nothing. the symptoms are aggravated by nothing. The patient has not experienced similar symptoms in the past. Historical: - Allergies: 08:39 No Known Allergies; kc6 - PMHx: 06:23 Kidney stones; Ovarian cyst; Headache; pf1 - PSHx: 06:23 Cholecystectomy; pf1 - Immunization history:: Adult Immunizations up to date, Client reports having NOT received the Covid vaccine. Last tetanus immunization: < 5 years ago Flu vaccine is up to date. - Social history:: Smoking status: Patient denies any tobacco usage or history of. Patient uses alcohol, but reports only rare drinking. Patient/guardian denies using street drugs. - Family history:: not pertinent. ROS: 07:29 Constitutional: Negative for fever, chills, and weight loss, Eyes: Negative for injury, malachi pain, redness, and discharge, ENT: Negative for injury, pain, and discharge, Neck: Negative for injury, pain, and swelling, Cardiovascular: Negative for chest pain, palpitations, and edema, Respiratory: Negative for shortness of breath, cough, wheezing, and pleuritic chest pain, Abdomen/GI: Negative for abdominal pain, nausea, vomiting, diarrhea, and constipation, Back: Negative for injury and pain, : Negative for injury, bleeding, discharge, and swelling, MS/Extremity: Negative for injury and deformity, Skin: Negative for injury, rash, and discoloration, Psych: Negative for depression, anxiety, suicide ideation, homicidal ideation, and hallucinations, Allergy/Immunology: Negative for hives, rash, and allergies, Endocrine: Negative for neck swelling, polydipsia, polyuria, polyphagia, and marked weight changes, Hematologic/Lymphatic: Negative for swollen nodes, abnormal bleeding, and unusual bruising. 07:29 Neuro: Positive for headache. Exam: 07:29 Constitutional: This is a well developed, well nourished patient who is awake, alert, malachi and in no acute distress. Head/Face: Normocephalic, atraumatic. Eyes: Pupils equal round and reactive to light, extra-ocular motions intact. Lids and lashes normal. Conjunctiva and sclera are non-icteric and not injected. Cornea within normal limits. Periorbital areas with no swelling, redness, or edema. ENT: Nares patent. No nasal discharge, no septal abnormalities noted. Tympanic membranes are normal and external auditory canals are clear. Oropharynx with no redness, swelling, or masses, exudates, or evidence of obstruction, uvula midline. Mucous membranes moist. Neck: Trachea midline, no thyromegaly or masses palpated, and no cervical lymphadenopathy. Supple, full range of motion without nuchal rigidity, or vertebral point tenderness. No Meningismus. Chest/axilla: Normal chest wall appearance and motion. Nontender with no deformity. No lesions are appreciated. Cardiovascular: Regular rate and rhythm with a normal S1 and S2. No gallops, murmurs, or rubs. Normal PMI, no JVD. No pulse deficits. Respiratory: Lungs have equal breath sounds bilaterally, clear to auscultation and percussion. No rales, rhonchi or wheezes noted. No increased work of breathing, no retractions or nasal flaring. Abdomen/GI: Soft, non-tender, with normal bowel sounds. No distension or tympany. No guarding or rebound. No evidence of tenderness throughout. Back: No spinal tenderness. No costovertebral tenderness. Full range of motion. Skin: Warm, dry with normal turgor. Normal color with no rashes, no lesions, and no evidence of cellulitis. MS/ Extremity: Pulses equal, no cyanosis. Neurovascular intact. Full, normal range of motion. Neuro: Awake and alert, GCS 15, oriented to person, place, time, and situation. Cranial nerves II-XII grossly intact. Motor strength 5/5 in all extremities. Sensory grossly intact. Cerebellar exam normal. Normal gait. Psych: Awake, alert, with orientation to person, place and time. Behavior, mood, and affect are within normal limits. 07:41 ECG was reviewed by the Attending Physician. [facility] Vital Signs: 05:54 BP 134 / 84; Pulse 91; Resp 18; Temp 98.1; Pulse Ox 100% on R/A; Weight 72.57 kg; pf1 Height 5 ft. 3 in. ; Pain 10/10; 07:05 BP 129 / 86; Pulse 82; Resp 15; Pulse Ox 100% on R/A; hb 08:38 BP 142 / 97; Pulse 97; Resp 19 S; Pulse Ox 100% on R/A; kc6 09:14 BP 143 / 98; Pulse 103; Resp 15; Pulse Ox 98% on R/A; hb 09:50 BP 137 / 68; Pulse 105; Resp 21; Pulse Ox 100% on R/A; hb 10:39 BP 136 / 92; Pulse 98; Resp 14; Pulse Ox 100% ; hb 12:11 BP 135 / 91; Pulse 92; Resp 20 S; Pulse Ox 100% on R/A; kc6 14:12 BP 121 / 79; Pulse 88; Resp 14 S; Pulse Ox 99% on R/A; kc6 15:11 BP 139 / 92; Pulse 105; Resp 18; Pulse Ox 100% on R/A; hb 19:23 BP 135 / 101; Pulse 81; Resp 15 S; Pulse Ox 100% on R/A; ha1 05:54 Body Mass Index 28.34 (72.57 kg, 160.02 cm) pf1 05:54 Pain Scale: Adult pf1 [place] Com[place] Score: 07:32 Eye Response: spontaneous(4). Motor Response: obeys commands(6). Verbal Response: malachi oriented(5). Total: 15. Procedures: 07:42 Lumbar Puncture: Patient placed in left lateral decubitus position. Prepped with [facility] Betadine. Draped using sterile technique. Collected 20 ml's of clear fluid. Puncture site dressed with band aid, Patient tolerated well. MDM: 05:56 Patient medically screened. [facility] 07:32 Differential diagnosis: cluster headache, hypertensive headache, hyponatremia, malachi migraine, subarachnoid bleed, subdural hematoma, temporal arteritis, tension headache, trigeminal neuralgia, uremia, vasomotor headache. Data reviewed: vital signs, nurses notes, lab test result(s), EKG, radiologic studies, CT scan, plain films. Consideration of Admission/Observation Escalation of care including admission/observation considered. I considered the following discharge prescriptions or medication management in the emergency department Medications were administered in the Emergency Department. See MAR. Independent interpretation of the following test(s) in the Emergency Department CT Scan: My interpretation is ct head wo. Test considered but Not performed: MRI: no mri brain. Care significantly affected by the following chronic conditions: headache, ovarian cyst, lidney stones. 09:55 ED course: Patient signed out to me for follow-up of CSF results that were pending sp3 status post lumbar puncture that was performed by Dr. Rice prior to his departure. Initial tube 1 demonstrated xanthochromia with higher red cells however tube for was clear with no xanthochromia with WBC count at 53 which is greater than the red cell count. Total protein is also elevated. Given these findings coupled with patient's continued headache, neck pain and not feeling well, we will treat with antibiotics and admit patient and await Gram stain and cultures. 2 g of Rocephin and 1 g of vancomycin have been ordered and we will initiate droplet protection and admit patient.. 06/30 05:56 Order name: CBC with Diff; Complete Time: 07:24 [facility] 06/30 05:56 Order name: Comprehensive Metabolic Panel; Complete Time: 07:24 [facility] 06/30 05:56 Order name: Urinalysis w/ reflexes; Complete Time: 07:24 malachi 06/30 05:56 Order name: UDS; Complete Time: 07:24 malachi 06/30 05:56 Order name: PREGU; Complete Time: 07:24 [facility] 06/30 05:56 Order name: SARS-COV-2 RT PCR; Complete Time: 07:24 [facility] 06/30 05:56 Order name: Flu; Complete Time: 07:24 [facility] 06/30 08:36 Order name: CSF Glucose; Complete Time: 09:19 EDMS 06/30 08:36 Order name: CSF Total Protein; Complete Time: 09:19 EDMS 06/30 08:36 Order name: CSF SPECIMEN; Complete Time: 09:19 EDMS 06/30 08:36 Order name: Cell Count Profile; Complete Time: 09:49 EDMS 06/30 08:38 Order name: Body Fluid Cell Count; Complete Time: 09:49 EDMS 06/30 08:38 Order name: CSF Culture EDMS 06/30 15:19 Order name: Thyroid Stimulating Hormone EDMS 06/30 15:19 Order name: CBC with Automated Diff EDMS 06/30 15:19 Order name: CBC with Automated Diff EDMS 06/30 15:19 Order name: CBC with Automated Diff EDMS 06/30 15:19 Order name: CBC with Automated Diff EDMS 06/30 15:19 Order name: Comprehensive Metabolic Panel EDMS 06/30 15:19 Order name: Comprehensive Metabolic Panel EDMS 06/30 15:19 Order name: Comprehensive Metabolic Panel EDMS 06/30 15:19 Order name: Comprehensive Metabolic Panel EDMS 06/30 05:56 Order name: CT Head Brain wo Cont; Complete Time: 07:24 malachi 06/30 05:56 Order name: EKG; Complete Time: 05:56 malachi 06/30 05:56 Order name: EKG - Nurse/Tech; Complete Time: 06:39 malachi 06/30 07:28 Order name: Lumbar Puncture Consent; Complete Time: 07:38 malachi 06/30 07:28 Order name: Lumbar Puncture Setup; Complete Time: 07:38 malachi EC:41 Rate is 86 beats/min. Rhythm is regular. QRS [place] is Normal. SC interval is normal. QRS malachi interval is normal. QT interval is normal. No Q waves. T waves are Normal. No ST changes noted. Clinical impression: NSR w/ Non-specific ST/T Changes and No evidence of ischemia. Interpreted by me. Reviewed by me. Administered Medications: 06:39 Drug: NS 0.9% IV 1000 ml Route: IV; Rate: 1 bolus; Site: right antecubital; vc1 12:12 Follow up: Response: No adverse reaction; IV Status: Completed infusion; IV Intake: kc6 1000ml 07:50 Drug: NS 0.9% IV 1000 ml Route: IV; Rate: 1 bolus; Site: right antecubital; kc6 09:41 Follow up: Response: No adverse reaction; IV Status: Completed infusion; IV Intake: kc6 1000ml 07:50 Drug: Ketorolac IVP 30 mg Route: IVP; Site: right antecubital; kc6 09:42 Follow up: Response: No adverse reaction kc6 07:51 Drug: diphenhydrAMINE IVP 50 mg Route: IVP; Site: right antecubital; kc6 09:42 Follow up: Response: No adverse reaction kc6 07:51 Drug: metoCLOPramide IVP 10 mg Route: IVP; Site: right antecubital; kc6 09:42 Follow up: Response: No adverse reaction kc6 08:37 Drug: NS 0.9% IV 500 ml Route: IV; Rate: bolus; Site: right antecubital; kc6 09:42 Follow up: Response: No adverse reaction; IV Status: Completed infusion; IV Intake: kc6 500ml 10:09 Drug: Rocephin - Rocephin (cefTRIAXone) IVPB 2 grams Route: IVPB; Infused Over: 30 kc6 mins; Site: right antecubital; 10:47 Follow up: Response: No adverse reaction; IV Status: Completed infusion; IV Intake: kc6 100ml 10:47 Drug: vancoMYCIN IVPB 1 grams Route: IVPB; Infused Over: 2 hrs; Site: right antecubital;kc6 12:12 Follow up: Response: No adverse reaction; IV Status: Completed infusion; IV Intake: kc6 250ml 12:27 Drug: HYDROmorphone IVP 1 mg Route: IVP; Site: right antecubital; kc6 13:26 Follow up: Response: No adverse reaction; Pain is decreased; RASS: Drowsy (-1) kc6 Disposition Summary: 06/30/23 10:04 Hospitalization Ordered Hospitalization Status: Inpatient Admission sp3 Condition: Stable sp3 Problem: new sp3 Symptoms: have worsened sp3 Bed/Room Type: Standard sp3 Provider: Óscar Paris(06/30/23 11:55) sp3 Location: Telemetry/MedSurg (Inpatient)(06/30/23 19:13) cg Room Assignment: [employer](06/30/23 19:13) cg Diagnosis - Unspecified meningitis, headache, neck stiffness sp3 Discharge Instructions: - Discharge Summary Sheet malachi - Spinal Headache malachi - General Headache Without Cause malachi - General Headache Without Cause, Fibt-ck-Okdo malachi Forms: - Medication Reconciliation Form sp3 - SBAR form sp3 - Leadership Thank You Letter sp3 Prescriptions: - Fioricet with Codeine [id number] mg Oral capsule - take 2 capsule by ORAL route every 6 hours as needed for pain; do not exceed 6 malachi caps per day; 20 capsule; Refills: 0, Product Selection Permitted - ondansetron 4 mg Oral Tablet,disintegrating - take 1 tablet by ORAL route every 6 to 8 hours for 5 days; 20 tablet; Refills: malachi 0, Product Selection Permitted Signatures: Dispatcher [employer] EDHank Garner MD MD cha Garcia, Cindy RN RN cg Chela Charles Setul, MD MD sp3 Ida Jessica RN RN vc1 Kailey Ulloa RN RN kc6 Maria Elena Sevilla RN RN pf1 Corrections: (The following items were deleted from the chart) 11:55 10:04 Tomy Cedeño sp3 sp3 16:16 10:04 Telemetry/MedSurg (Inpatient) sp3 eb 16:16 10:04 sp3 eb 19:13 16:16 [facility] ER HOLD eb cg 19:13 16:16 ERHOLD- eb cg
--- NOTE | 2023-06-30 10:05 | ER ---
Nurse's Notes [facility] [place] Name: Viki Bright Age: 23 yrs Sex: Female : 2000 Arrival Date: 06/30/2023 Time: 05:46 Bed 6 Private MD: Diagnosis: Unspecified meningitis, headache, neck stiffness Presentation: 06/30 05:54 Chief complaint: Patient states: headache, body aches and nausea,onset Saturday, worse pf1 this AM with headache pain of 10. 05:54 Coronavirus screen: Vaccine status: Patient reports being unvaccinated. Client denies pf1 travel out of the [place] in the last 14 days. Client presents with at least one sign or symptom that may indicate coronavirus-19. Ebola Screen: Patient negative for fever greater than or equal to 101.5 degrees Fahrenheit, and additional compatible Ebola Virus Disease symptoms. Initial Sepsis Screen: Does the patient meet any 2 criteria? No. Patient's initial sepsis screen is negative. Does the patient have a suspected source of infection? No. Patient's initial sepsis screen is negative. Risk Assessment: Do you want to hurt yourself or someone else? Patient reports no desire to harm self or others. 05:54 Method Of Arrival: Ambulatory pf1 05:54 Acuity: KELSIE 3 pf1 Triage Assessment: 06:39 General: Appears in no apparent distress. uncomfortable, Behavior is cooperative. Pain: vc1 Complains of pain in headache. EENT: No deficits noted. No signs and/or symptoms were reported regarding the EENT system. Neuro: Level of Consciousness is awake, alert, obeys commands, Oriented to person, place, time, situation, Appropriate for age. Cardiovascular: No deficits noted. Respiratory: Airway is patent Respiratory effort is even, unlabored, Respiratory pattern is regular, symmetrical. GI: No deficits noted. No signs and/or symptoms were reported involving the gastrointestinal system. : No deficits noted. No signs and/or symptoms were reported regarding the genitourinary system. Derm: No deficits noted. No signs and/or symptoms reported regarding the dermatologic system. Musculoskeletal: No deficits noted. No signs and/or symptoms reported regarding the musculoskeletal system. Historical: - Allergies: 08:39 No Known Allergies; kc6 - PMHx: 06:23 Kidney stones; Ovarian cyst; Headache; pf1 - PSHx: 06:23 Cholecystectomy; pf1 - Immunization history:: Adult Immunizations up to date, Client reports having NOT received the Covid vaccine. Last tetanus immunization: < 5 years ago Flu vaccine is up to date. - Social history:: Smoking status: Patient denies any tobacco usage or history of. Patient uses alcohol, but reports only rare drinking. Patient/guardian denies using street drugs. - Family history:: not pertinent. Screenin:30 Abuse screen: Denies threats or abuse. Nutritional screening: No deficits noted. vc1 Tuberculosis screening: No symptoms or risk factors identified. 06:44 [facility] ED Fall Risk Assessment (Adult) History of falling in the last 3 months, vc1 including since admission No falls in past 3 months (0 pts) Confusion or Disorientation No (0 pts) Intoxicated or Sedated No (0 pts) Impaired Gait No (0 pts) Mobility Assist Device Used No (0 pt) Altered Elimination No (0 pt) Score/Fall Risk Level 0 - 2 = Low Risk Oriented to surroundings, Maintained a safe environment, Educated pt \T\ family on fall prevention, incl call for assistance when getting out of bed. Assessment: 07:00 Reassessment: Patient appears in no apparent distress at this time. Patient and/or kc6 family updated on plan of care and expected duration. Pain level reassessed. Patient is alert, oriented x 3, equal unlabored respirations, skin warm/dry/pink. 07:45 Reassessment: Dr. Rice at bedside for LP. hb 08:00 Reassessment: Patient appears in no apparent distress at this time. Patient and/or kc6 family updated on plan of care and expected duration. Pain level reassessed. Patient is alert, oriented x 3, equal unlabored respirations, skin warm/dry/pink. 08:25 Reassessment: CSF samples walked out to lab. Pt supine in stretcher with NS bolus hb infusing to 20g RAC. Instructed pt to remain supine for the next hour, pt verbalized understanding of instructions. Call light within reach, bed locked in low position. 09:00 Reassessment: Patient appears in no apparent distress at this time. No changes from kc6 previously documented assessment. Patient and/or family updated on plan of care and expected duration. Pain level reassessed. Patient is alert, oriented x 3, equal unlabored respirations, skin warm/dry/pink. 09:14 Reassessment: Patient appears in no apparent distress at this time. No changes from previously documented assessment. 09:32 Reassessment: pt appears to have voided approximately 900 mL of clear, yellow urine to kc6 pure wick. 10:00 Reassessment: Patient appears in no apparent distress at this time. No changes from kc6 previously documented assessment. Patient and/or family updated on plan of care and expected duration. Pain level reassessed. Patient is alert, oriented x 3, equal unlabored respirations, skin warm/dry/pink. 11:00 Reassessment: Patient appears in no apparent distress at this time. No changes from kc6 previously documented assessment. Patient and/or family updated on plan of care and expected duration. Pain level reassessed. Patient is alert, oriented x 3, equal unlabored respirations, skin warm/dry/pink. 12:00 Reassessment: Patient appears in no apparent distress at this time. No changes from kc previously documented assessment. Patient and/or family updated on plan of care and expected duration. Pain level reassessed. Patient is alert, oriented x 3, equal unlabored respirations, skin warm/dry/pink. 13:00 Reassessment: Patient appears in no apparent distress at this time. No changes from kc6 previously documented assessment. Patient and/or family updated on plan of care and expected duration. Pain level reassessed. Patient is alert, oriented x 3, equal unlabored respirations, skin warm/dry/pink. 14:00 Reassessment: Patient appears in no apparent distress at this time. No changes from kc previously documented assessment. Patient and/or family updated on plan of care and expected duration. Pain level reassessed. Patient is alert, oriented x 3, equal unlabored respirations, skin warm/dry/pink. 15:11 Reassessment: Patient appears in no apparent distress at this time. Patient and/or hb family updated on plan of care and expected duration. Pain level reassessed. Patient is alert, oriented x 3, equal unlabored respirations, skin warm/dry/pink. Vital Signs: 05:54 BP 134 / 84; Pulse 91; Resp 18; Temp 98.1; Pulse Ox 100% on R/A; Weight 72.57 kg; pf1 Height 5 ft. 3 in. ; Pain 10/10; 07:05 BP 129 / 86; Pulse 82; Resp 15; Pulse Ox 100% on R/A; hb 08:38 BP 142 / 97; Pulse 97; Resp 19 S; Pulse Ox 100% on R/A; kc6 09:14 BP 143 / 98; Pulse 103; Resp 15; Pulse Ox 98% on R/A; hb 09:50 BP 137 / 68; Pulse 105; Resp 21; Pulse Ox 100% on R/A; hb 10:39 BP 136 / 92; Pulse 98; Resp 14; Pulse Ox 100% ; hb 12:11 BP 135 / 91; Pulse 92; Resp 20 S; Pulse Ox 100% on R/A; kc6 14:12 BP 121 / 79; Pulse 88; Resp 14 S; Pulse Ox 99% on R/A; kc6 15:11 BP 139 / 92; Pulse 105; Resp 18; Pulse Ox 100% on R/A; hb 19:23 BP 135 / 101; Pulse 81; Resp 15 S; Pulse Ox 100% on R/A; ha1 05:54 Body Mass Index 28.34 (72.57 kg, 160.02 cm) pf1 05:54 Pain Scale: Adult pf1 Sachin Coma Score: 07:32 Eye Response: spontaneous(4). Motor Response: obeys commands(6). Verbal Response: malachi oriented(5). Total: 15. ED Course: 05:50 Patient arrived in ED. kj1 05:54 Hank Rice MD is Attending Physician. malachi 06:23 Triage completed. pf1 06:30 Patient has correct armband on for positive identification. Bed in low position. Call vc1 light in reach. Client placed on continuous cardiac and pulse oximetry monitoring. NIBP monitoring applied. 06:30 Inserted saline lock: 20 gauge in right antecubital area, using aseptic technique. vc1 Blood collected. 06:37 Ida Jessica RN is Primary Nurse. vc1 06:37 Arm band placed on right wrist. vc1 06:39 Comprehensive Metabolic Panel Sent. vc1 06:39 Urinalysis w/ reflexes Sent. vc1 06:39 UDS Sent. vc1 06:39 PREGU Sent. vc1 06:39 SARS-COV-2 RT PCR Sent. vc1 06:39 Flu Sent. vc1 07:00 Report received from Jennifer Vieyra RN \T\ Ida Williamson RN. kc6 07:05 CT Head Brain wo Cont In Process Unspecified. EDMS 08:22 Assist provider with lumbar puncture: Set up LP tray. Performed by Hank Rice MD kc6 CSF is clear. Puncture site dressed with band aid, Procedure was successful. Patient tolerated well. 09:09 Attending Physician role handed off by Hank Rice MD sp3 09:09 Eli Gutierrez MD is Attending Physician. sp3 10:04 Tomy Cedeño MD is Hospitalizing Provider. sp3 11:55 Óscar Paris MD is Hospitalizing Provider. sp3 17:35 Patient admitted, IV remains in place. hb Administered Medications: 06:39 Drug: NS 0.9% IV 1000 ml Route: IV; Rate: 1 bolus; Site: right antecubital; vc1 12:12 Follow up: Response: No adverse reaction; IV Status: Completed infusion; IV Intake: kc6 1000ml 07:50 Drug: NS 0.9% IV 1000 ml Route: IV; Rate: 1 bolus; Site: right antecubital; kc6 09:41 Follow up: Response: No adverse reaction; IV Status: Completed infusion; IV Intake: kc6 1000ml 07:50 Drug: Ketorolac IVP 30 mg Route: IVP; Site: right antecubital; kc6 09:42 Follow up: Response: No adverse reaction kc6 07:51 Drug: diphenhydrAMINE IVP 50 mg Route: IVP; Site: right antecubital; kc6 09:42 Follow up: Response: No adverse reaction kc6 07:51 Drug: metoCLOPramide IVP 10 mg Route: IVP; Site: right antecubital; kc6 09:42 Follow up: Response: No adverse reaction kc6 08:37 Drug: NS 0.9% IV 500 ml Route: IV; Rate: bolus; Site: right antecubital; kc6 09:42 Follow up: Response: No adverse reaction; IV Status: Completed infusion; IV Intake: kc6 500ml 10:09 Drug: Rocephin - Rocephin (cefTRIAXone) IVPB 2 grams Route: IVPB; Infused Over: 30 kc6 mins; Site: right antecubital; 10:47 Follow up: Response: No adverse reaction; IV Status: Completed infusion; IV Intake: kc6 100ml 10:47 Drug: vancoMYCIN IVPB 1 grams Route: IVPB; Infused Over: 2 hrs; Site: right antecubital;kc6 12:12 Follow up: Response: No adverse reaction; IV Status: Completed infusion; IV Intake: kc6 250ml 12:27 Drug: HYDROmorphone IVP 1 mg Route: IVP; Site: right antecubital; kc6 13:26 Follow up: Response: No adverse reaction; Pain is decreased; RASS: Drowsy (-1) kc6 Medication: 06:44 VIS not applicable for this client. vc1 Intake: 09:41 IV: 1000ml; Total: 1000ml. kc6 09:42 IV: 500ml; Total: 1500ml. kc6 10:47 IV: 100ml; Total: 1600ml. kc6 12:12 IV: 250ml; Total: 1850ml. kc6 12:12 IV: 1000ml; Total: 2850ml. kc6 Outcome: 10:04 Decision to Hospitalize by Provider. sp3 17:35 Admitted to ER Hold. Please see [facility] for further documentation. hb 17:35 Condition: stable 17:35 Instructed on the need for admit, Demonstrated understanding of instructions. 20:16 Patient left the ED. kl Signatures: Dispatcher [employer] EDKaty Lee RN RN kl Anderson, Corey, MD MD cha Baxter, Heather, RN RN hb Jackson, Kandis kj1 Eli Gutierrez MD MD sp3 Ida Jessica RN RN vc1 Nicolasa Goodman RN RN ha1 Campbell, Kaitlyn, RN RN kc6 Maria Elena Sevilla RN RN pf1
[2023-06-30] MEDS ORDERED: VANCOMYCIN 1 GM/VIAL ONE (10:13)
[2023-06-30] MEDS ORDERED: NA CHLORIDE 0.9% 250 ML ONE (10:13)
[2023-06-30] MEDS ORDERED: CEFTRIAXONE 2000 MG/VIAL ONE (10:13)
[2023-06-30] MEDS ORDERED: NA CHLORIDE 0.9% 100 ML ONE (10:13)
[2023-06-30] MEDS ORDERED: HYDROMORPHONE HCL 1 MG/ML INJ ONE (12:34)
--- NOTE | 2023-06-30 15:07 | P.HP ---
Certification for Inpatient Patient admitted to: Observation With expected LOS: <2 Midnights Patient will require the following post-hospital care: None Practitioner: I am a practitioner with admitting privileges, knowledge of patient current condition, hospital course, and medical plan of care. Services: Services provided to patient in accordance with Admission requirements found in Title 42 Section 412.3 of the Code of Federal Regulations Patient History Date of Service: 06/30/23 Primary Care Provider: Zach Cerda Reason for admission: viral meningitis, History of Present Illness: Office patient with a history of htn and migraines. She has been having increased headaches for the past week. Her 2 year old daughter is also ill with URTI symptoms. The patient was having a headache which was 10/10. She came to the ER and had a LP. Showed elevated protein and wbc. She was given some diluadid which helped. Her current pain level is 6 Moncure score is 3 Stop Bang score is 2 Midas Headache score is 152 or class 4 Allergies No Known Drug Allergies Allergy (Verified 06/13/19 12:06) Unknown Home Medications: Mv-Mn/Iron/FA/Herbal/Digestive [ One Tablet] 1 tab PO DAILY 06/13/19 Codeine/APAP [Tylenol W/Codeine #3 tab] 1 tab PO Q6HP PRN #10 tab 06/15/19 - Past Medical/Surgical History Diabetic: No -: tube placement in ears -: tonsils removed -: stent placed in kidney -: kidney stones -: gall bladder removed - Family History Mother -: Hypertension, Cancer Notes: thyroid Sister Notes: asthma - Social History Alcohol use: No CD- Drugs: No Caffeine use: No Review of Systems 10-point ROS is otherwise unremarkable Neurological: Other (Headache with mild neck stiffness ) Physical Examination - Physical Exam General: Alert, In no apparent distress HEENT: Atraumatic, PERRLA, Mucous membr. moist/pink, Other (Mallampatti score is 4), EOMI, Sclerae nonicteric Neck: Supple, 2+ carotid pulse no bruit, No LAD, Other (neck circumference is 14"), Without JVD or thyroid abnormality Respiratory: Clear to auscultation bilaterally, Normal air movement Cardiovascular: Regular rate/rhythm, Normal S1 S2 Gastrointestinal: Normal bowel sounds, No tenderness Musculoskeletal: No tenderness Integumentary: No rashes Neurological: Normal gait, Normal speech, Normal strength at 5/5 x4 extr, Normal tone, Normal affect Lymphatics: No axilla or inguinal lymphadenopathy - Studies Laboratory Data (last 24 hrs) 06/30/23 06/30/23 06:15 06:15 WBC 7.20 Hgb 13.2 Hct 37.9 Plt Count 262 Sodium 140 Potassium 3.8 BUN 9 Creatinine 0.65 Glucose 93 Total Bilirubin 0.3 AST 9 L ALT 35 Alkaline Phosphatase 74 Microbiology Data (last 24 hrs): 06/30/23 08:22 Cerebral Spinal Fluid Gram Stain - Final 06/30/23 06:15 Nasopharnyx Influenza Type A Antigen Screen - Final 06/30/23 06:15 Nasopharnyx Influenza Type B Antigen Screen - Final Assessment and Plan - Problems (Diagnosis) (1) Viral meningitis Current Visit: Yes Status: Acute Plan: Will switch the patient from antibiotics to iv meningitis. Will await her cultures and can discharge her on po valcyclovir for 14 days. (2) HTN (hypertension) Current Visit: Yes Status: Chronic Plan: restart her home dosage of losartan Qualifiers: Hypertension type: primary hypertension Qualified Code(s): I10 - Essential (primary) hypertension (3) Migraine Current Visit: Yes Status: Chronic Plan: will start her on topirmate. Will keep her on an overnight pulse oximeter and tele. Start her on fiorcet and NSAId therapy with fluids. Will also start the patient on sumatriptan Qualifiers: Migraine type: without aura Status migrainosus presence: with status migrainosus Intractability: not intractable Qualified Code(s): G43.001 - Migraine without aura, not intractable, with status migrainosus Discharge Plan: Home Plan to discharge in: 24 Hours - Advance Directives Does patient have a Living Will: No Does patient have a Durable POA for Healthcare: No - Code Status/Comfort Care Code Status Assessed: Yes Code Status: Full Code Physician Review: Patient Assessed, Agree with Above Assessment and Plan Critical Care: No Time Spent Managing Pts Care (In Minutes): 40
[2023-06-30] MEDS ORDERED: HYDRALAZINE HCL 20 MG/ML VIAL IV PRN (15:12)
[2023-06-30] MEDS: SUMATRIPTAN SUCCI 50 MG TAB PO SCH (15:13)
[2023-06-30] MEDS ORDERED: ACETAMIN/CAFFEINE/BUTALB TAB PO PRN (15:15)
[2023-06-30] MEDS ORDERED: BISMUTH SUBSALICYL 262MG/15ML-240 ML BTL PO PRN (15:17)
[2023-06-30] MEDS: ACYCLOVIR INJ 700 MG in NA CHLORIDE 0.9% 100 ML IVPB SCH (16:00)
[2023-06-30] MEDS: D5 0.45 NS 1,000 ML IV SCH (16:00)
[2023-06-30] MEDS ORDERED: D5 0.45 NS 1,000 ML IV ONE (16:04)
[2023-06-30] MEDS ORDERED: ENOXAPARIN 40 MG/0.4 ML SQ ONE (16:04)
[2023-06-30] MEDS ORDERED: ENOXAPARIN 40 MG/0.4 ML SQ SCH (17:00)
[2023-06-30 17:31] VITALS: BMI 28.0
[2023-06-30] MEDS ORDERED: PROMETHAZINE INJ 25 MG/ML AMP IV ONE (20:32)
[2023-06-30] MEDS ORDERED: PROMETHAZINE 25 MG TABLET PO PRN (20:32)
[2023-06-30] MEDS ORDERED: ACETAMIN/CAFFEINE/BUTALB TAB PO ONE (20:48)
[2023-06-30] MEDS: IBUPROFEN 400 MG TAB PO SCH (20:52)
[2023-06-30] MEDS ORDERED: TOPIRAMATE 25 MG TAB PO SCH (21:00)
[2023-06-30] MEDS: DICLOFENAC SOD D.R. 75 MG TAB PO SCH (21:00)
[2023-07-01] MEDS ORDERED: NA CHLORIDE 0.9% 100 ML ONE (00:09)
[2023-07-01] MEDS: D5 0.45 NS 1,000 ML IV SCH ×2 (01:59→11:04)
[2023-07-01 02:04] VITALS: O2SAT 98
[2023-07-01 06:16] LABS: Absolute Lymphocytes (CBC) 2.1 K/uL (0.7-4.9); Lymphocytes % 49.2 % (15.3-44.8); MCV 82.8 fL (80-100); MPV 7.7 fL (7.6-11.3); Platelets 256 thou/uL (152-406); RBC Red Blood Cell Count 4.35 M/uL (3.86-4.86)
[2023-07-01 06:39] LABS: Albumin 2.7 g/dL (3.4-5.0); Bilirubin Total 0.3 mg/dL (0.2-1.0); Protein, Total 6.3 g/dL (6.4-8.2); Thyroid Stimulating Hormone 3.38 uIU/mL (0.358-3.740)
[2023-07-01 08:33] LABS: Blood Morphology Comment NOT SEEN (NOT SEEN); Platelet Estimate ADEQ
[2023-07-01] MEDS: ACYCLOVIR INJ 700 MG in NA CHLORIDE 0.9% 100 ML IVPB SCH ×3 (09:40)
[2023-07-01] MEDS: IBUPROFEN 400 MG TAB PO SCH ×2 (09:41→13:44)
[2023-07-01] MEDS: SUMATRIPTAN SUCCI 50 MG TAB PO SCH (09:41)
[2023-07-01] MEDS: DICLOFENAC SOD D.R. 75 MG TAB PO SCH ×2 (09:42→13:43)
--- NOTE | 2023-07-01 12:15 | P.DS ---
Admission Date: 06/30/23 Discharge Date: 07/01/23 Primary Care Provider: Zach Cerda Disposition: ROUTINE DISCHARGE Discharge Condition: GOOD Reason for Admission: viral meningitis, - Problems (1) Viral meningitis Current Visit: Yes Status: Acute (2) HTN (hypertension) Current Visit: Yes Status: Chronic Qualifiers: Hypertension type: primary hypertension Qualified Code(s): I10 - Essential (primary) hypertension (3) Migraine Current Visit: Yes Status: Chronic Qualifiers: Migraine type: without aura Status migrainosus presence: with status migrainosus Intractability: not intractable Qualified Code(s): G43.001 - Migraine without aura, not intractable, with status migrainosus Brief History of Present Illness: Office patient with a history of htn and migraines. She has been having increased headaches for the past week. Her 2 year old daughter is also ill with URTI symptoms. The patient was having a headache which was 10/10. She came to the ER and had a LP. Showed elevated protein and wbc. She was given some diluadid which helped. Her current pain level is 6 Franklin score is 3 Stop Bang score is 2 Midas Headache score is 152 or class 4 Hospital Course: Patient is doing better tomorrow. She has some slight elevation of bp. Headache is 1/10. at the bedside. He ranks her epworth score of 6 She has negative preliminary csf cultures. Will treat her outpatient with valcyclovir. However I think there would be more benefit to treating the bp and migranes. Will have her follow up in the office. Will need to work her up for secondary htn. As well as improving migraine treatment Vital Signs/Physical Exam: Temp Pulse Resp BP Pulse Ox 98.4 F 84 17 128/86 98 07/01/23 08:00 07/01/23 08:00 07/01/23 08:00 07/01/23 08:00 07/01/23 08:00 General: Alert, In no apparent distress HEENT: Atraumatic, PERRLA, EOMI Neck: Supple, JVD not distended Respiratory: Clear to auscultation bilaterally, Normal air movement Cardiovascular: Regular rate/rhythm, Normal S1 S2 Gastrointestinal: Normal bowel sounds, No tenderness Musculoskeletal: No tenderness Integumentary: No rashes Neurological: Normal speech, Normal tone, Normal affect Lymphatics: No axilla or inguinal lymphadenopathy Laboratory Data at Discharge: WBC 4.30 thou/uL (4.3-10.9) 07/01/23 06:00 Hgb 12.2 g/dL (12.0-15.0) 07/01/23 06:00 Hct 36.0 % (36.0-45.0) 07/01/23 06:00 Plt Count 256 thou/uL (152-406) 07/01/23 06:00 Sodium 137 mEq/L (136-145) 07/01/23 06:00 Potassium 4.0 mEq/L (3.5-5.1) 07/01/23 06:00 BUN 5 mg/dL (7-18) L 07/01/23 06:00 Creatinine 0.64 mg/dL (0.55-1.02) 07/01/23 06:00 Glucose 95 mg/dL (74-106) 07/01/23 06:00 Total Bilirubin 0.3 mg/dL (0.2-1.0) 07/01/23 06:00 AST 21 U/L (15-37) 07/01/23 06:00 ALT 50 U/L (13-56) 07/01/23 06:00 Alkaline Phosphatase 96 U/L (45-117) D 07/01/23 06:00 Home Medications: Mv-Mn/Iron/FA/Herbal/Digestive [ One Tablet] 1 tab PO DAILY 06/13/19 Codeine/APAP [Tylenol W/Codeine #3 tab] 1 tab PO Q6HP PRN #10 tab 06/15/19 Acetam/Caff/Butal [Fioricet] 1 tab PO Q6H PRN 15 Days #60 tab 07/01/23 Chlorthalidone 25 mg PO DAILY WITH BREAKFAST 90 Days #90 tab 07/01/23 Diclofenac Na [Voltaren D.r*] 75 mg PO BID PRN 15 Days #30 tab 07/01/23 SUMAtriptan succinate [Sumatriptan Succinate] 50 gm MC QID PRN 30 Days #20 tab 07/01/23 Topiramate 25 mg PO BID 30 Days #60 tab 07/01/23 Valacyclovir HCl 1 gm MC TID 10 Days #30 tab 07/01/23 New Medications: Chlorthalidone 25 mg PO DAILY WITH BREAKFAST 90 Days #90 tab Acetam/Caff/Butal [Fioricet] 1 tab PO Q6H PRN 15 Days #60 tab PRN Reason: Headache SUMAtriptan succinate [Sumatriptan Succinate] 50 gm MC QID PRN 30 Days #20 tab PRN Reason: Pain Scale 5-7 (Moderate) Topiramate 25 mg PO BID 30 Days #60 tab Valacyclovir HCl 1 gm MC TID 10 Days #30 tab Diclofenac Na [Voltaren D.r*] 75 mg PO BID PRN 15 Days #30 tab PRN Reason: Pain Scale 5-7 (Moderate) Diet: Regular Activity: Ad zen Followup: Óscar Paris MD [Primary Care Provider] - Physician Review: Patient Assessed, Agree with Above Assessment and Plan Time spent managing pt's care (in minutes): 30
[2023-07-01] MEDS ORDERED: LOSARTAN POTASSIUM 50 MG TABLET PO SCH (13:22)
[2023-07-01 13:23] VITALS: TEMP 98.6
[2023-07-01 15:08] VITALS: BP 146/89
--- NOTE | 2023-07-02 16:53 | EKG ---
Test Date: 2023-06-30 Test Time: 06:34:18 Cylinder Loader: RUFINO MEASUREMENT RESULTS: Intervals: Rate: 86 WA: 148 QRSD: 86 QT: 384 QTc: 459 [place]: P: 47 WA: 148 QRS: 66 T: 30 INTERPRETIVE STATEMENTS: Normal sinus rhythm Normal ECG Compared to ECG 03/25/2015 11:37:36 No significant changes Electronically Signed On 07-02-23 16:46:11 CDT by Clint Mota
== END 2023-07-01 15:45 | disposition home or self-care (01) ==
LOC: SUPCPDRO 05:46 → ER 05:46 → ERHOLD 15:13 → 4TH 19:28
PROVIDERS: ADMIT Internal Medicine; ATTEND Internal Medicine
DX: A87.9 Viral meningitis, unspecified (principal); I10 Essential (primary) hypertension; G43.001 Migraine without aura, not intractable, with status migrainosus; Z20.822 Contact with and (suspected) exposure to COVID-19
CPT/HCPCS: 96365; 96367; 96361; 87070; 85025 ×2; 81001; 36415 ×2; 89050 ×2; 81025; 84157; 82945; 84443; 80053 ×2; 87635; 80307; 87804 ×2; 70450; 94760 ×2; 62270; 96375; 99285; J2550; J2765; J1200; J1650; J1170; J0133 ×2; J0696; J7799 ×3; J7050; J7040; J7030 ×2; 93005; G0378